=== PATIENT | female | born 1950 | race African-American/Black ===

== ENCOUNTER 2018-09-15 16:31 | Inpatient (IN) | payer MEDICARE, BC ==
[~2018-09-15] VITALS: Ht 165.1 cm; Wt 100.8 kg
[2018-09-15] VITALS (11 sets, daily range): BP systolic 77–150; BP diastolic 41–94
[2018-09-15] MEDS ORDERED: UNOBMED (17:26)
[2018-09-15] MEDS ORDERED: LORazepam Inj 2mg/ml 1ml IV ONE (17:45)
[2018-09-15 17:46] LABS: HEMATOCRIT 34.9 % (37.0-47.0); MEAN CORPUSCULAR VOLUME 92 FL (80-99); PLATELET COUNT 371 K/UL (150-450); RED BLOOD COUNT 3.79 M/UL (4.20-5.40); RED CELL DISTRIBUTION WIDTH 15.4 % (11.6-14.8); WHITE BLOOD COUNT 18.6 K/UL (4.8-10.8)
[2018-09-15] MEDS ORDERED: ACETAMINOPHEN500 M5 PO (17:47)
[2018-09-15] MEDS ORDERED: DOCUSATE SODIU100 MG ORAL (17:52)
[2018-09-15] MEDS ORDERED: ACETAMINOPHEN325 M1 ORAL (17:52)
[2018-09-15] MEDS ORDERED: MULTIVITAMINS1 EAC2 ORAL (17:52)
--- NOTE | 2018-09-15 17:55 | Diagnostic Imaging Report ---
ADDENDUM - Added by Meliza Roberts M.D. on 09/15/2018 5:53 PM (-07:00) Correction should read: QUERY right pigtail catheter/chest tube. EXAM: XR Chest, 1 View CLINICAL HISTORY: COUGH TECHNIQUE: Frontal view of the chest. COMPARISON: No relevant prior studies available. FINDINGS: Lungs: Patchy bilateral pulmonary opacities could be from edema or pneumonia. Retrocardiac atelectasis/consolidation. Pleural space: Bilateral pleural effusions. No pneumothorax. Heart: Large cardiac silhouette. Mediastinum: Unremarkable. Bones/joints: No acute fracture. Soft tissues: Surgical clips in the left axillary region. Tubes, lines and devices: The endotracheal tube is approximately 2 cm above the ferny. Limited assessment of the enteric tube. Coronary right pigtail catheter/chest tube. IMPRESSION: Patchy bilateral pulmonary opacities could be from edema or pneumonia. Retrocardiac atelectasis/consolidation.
[2018-09-15 17:58] LABS: ANION GAP 5 mmol/L (5-15); BLOOD UREA NITROGEN 16 mg/dL (7-18); CALCIUM 9.3 MG/DL (8.5-10.1); CARBON DIOXIDE 30 MMOL/L (21-32); CHLORIDE 104 MMOL/L (98-107); CREATININE 0.9 MG/DL (0.55-1.30); SODIUM 139 MMOL/L (136-145)
--- NOTE | 2018-09-15 18:08 | Emergency Room Report ---
History of Present Illness General Chief Complaint: Dyspnea/Respdistress Source: Medical Record Present Illness HPI Patient presents emergency department today with acute respiratory distress. History is limited as patient is from a care home and a poor historian. Patient apparently has a history of lymphedema on the left with evidence of pleural effusion in the lungs. Patient also might have had a history of breast cancer as there are evidence of surgical clips on chest x-ray on patient's left side anterior chest wall. Patient did present with shortness of breath that was acute or desaturation was approximately 80% on room air. No further history is available as patient appears to be laboring all her breathing. Symptoms are noted to be highly severe. Patient's primary care physician at the care home was Dr. Gomes. Symptoms noted to be severe to critical. No other modifying factors. No other associated signs and symptoms. No other complaints were noted. Allergies: Coded Allergies: No Known Allergies (Unverified , 09/15/18) Patient History Past Medical History: other - Lymphedema, pleural effusion Past Surgical History: other - Port-A-Cath right arm, prior surgery left chest Social History Narrative Patient is at a care home Now: No Reviewed Nursing Documentation: PMH: Agreed; PSxH: Agreed Nursing Documentation-PMH Hx Hypertension: Yes Hx Diabetes: Yes - DM type 2 Review of Systems All Other Systems: limited Physical Exam Vital Signs Date Time Temp Pulse Resp B/P (MAP) Pulse Ox O2 Delivery O2 Flow Rate FiO2 09/15/18 16:25 109 25 150/78 70 Room Air 09/15/18 16:35 98.6 09/15/18 17:05 100 Sp02 EP Interpretation: reviewed, abnormal, other - O2 sat noted to be low by me General Appearance: severe distress, lethargic, Chronically Ill Head: atraumatic Eyes: bilateral eye PERRL ENT: moist mucus membranes Neck: full range of motion, supple Respiratory: respiratory distress, decreased breath sounds, accessory muscle use, other - Decreased breath sounds on the left Cardiovascular #1: regular rate, rhythm, edema - Left upper extremity, bilateral lower extremity Gastrointestinal: normal inspection, soft, no hernia Genitourinary: deferred Musculoskeletal: swelling - Left upper extremity Neurologic: responsive, other - Lethargic but awake Psychiatric: anxious Skin: normal inspection Procedures Critical Care Time Critical Care Time Patient had a critical medical condition which untreated could potentially result in life or limb threatening injury. Total critical care time excluding procedures was approximately 45 minutes. Intubation Intubation : Consent: Emergent Intubation Method: orotracheal Tube Size (cm): 7.5 Medications: Etomidate, Rocuronium Breath Sounds after Intubation: right greater than left Intubation Complications: no complications Post Intubation Xray: Yes Progress/Xray Impression: Appropriate placement of ET tube. Attempts: One Patient Tolerated: Well Complications: None Medical Decision Making Diagnostic Impression: Primary Impression: Respiratory failure Additional Impressions: Pleural effusion Pulmonary edema ER Course Patient presents emergency department today with acute shortness of breath. Differential diagnosis include respiratory failure, pulmonary edema, pleural effusion, pneumonia just to name a few. Given the severity of the patient's presentation I felt this is a highly complex patient. This patient required extensive workup. Given patient's initial presentation patient required emergent intervention. Patient was intubated. Patient chest x-ray shows evidence of congestion versus infiltrate. Because of this patient was given antibiotics. Unfortunately we were unable to obtain blood because of patient's body habitus and because of the patient presentation. Even though blood culture was ordered we are unable to get blood initially. As a result to prevent further delay patient was given IV antibiotics. Because patient was starting to decompensate with lower blood pressures patient was given a fluid bolus. Patient blood pressure did improve. Patient will be admitted to the ICU for further treatment. Case was discussed with Dr. Ernesto Diaz. He will be accepting the patient in ICU. Labs Test 09/15/18 17:28 09/15/18 19:40 White Blood Count 18.6 K/UL (4.8-10.8) Red Blood Count 3.79 M/UL (4.20-5.40) Hemoglobin 11.0 G/DL (12.0-16.0) Hematocrit 34.9 % (37.0-47.0) Mean Corpuscular Volume 92 FL (80-99) Mean Corpuscular Hemoglobin 29.1 PG (27.0-31.0) Mean Corpuscular Hemoglobin Concent 31.5 G/DL (32.0-36.0) Red Cell Distribution Width 15.4 % (11.6-14.8) Platelet Count 371 K/UL (150-450) Mean Platelet Volume 5.0 FL (6.5-10.1) Neutrophils (%) (Auto) % (45.0-75.0) Lymphocytes (%) (Auto) % (20.0-45.0) Monocytes (%) (Auto) % (1.0-10.0) Eosinophils (%) (Auto) % (0.0-3.0) Basophils (%) (Auto) % (0.0-2.0) Differential Total Cells Counted 100 Neutrophils % (Manual) 91 % (45-75) Lymphocytes % (Manual) 3 % (20-45) Monocytes % (Manual) 0 % (1-10) Eosinophils % (Manual) 0 % (0-3) Basophils % (Manual) 0 % (0-2) Band Neutrophils 6 % (0-8) Platelet Estimate Adequate Platelet Morphology Normal Polychromasia 1+ Hypochromasia 1+ Anisocytosis 1+ Prothrombin Time 10.6 SEC (9.30-11.50) Prothromb Time International Ratio 1.0 (0.9-1.1) Activated Partial Thromboplast Time 25 SEC (23-33) Sodium Level 139 MMOL/L (136-145) Potassium Level 4.0 MMOL/L (3.5-5.1) Chloride Level 104 MMOL/L (98-107) Carbon Dioxide Level 30 MMOL/L (21-32) Anion Gap 5 mmol/L (5-15) Blood Urea Nitrogen 16 mg/dL (7-18) Creatinine 0.9 MG/DL (0.55-1.30) Estimat Glomerular Filtration Rate > 60 mL/min (>60) Glucose Level 208 MG/DL (74-106) Calcium Level 9.3 MG/DL (8.5-10.1) Total Bilirubin 0.3 MG/DL (0.2-1.0) Aspartate Amino Transf (AST/SGOT) 16 U/L (15-37) Alanine Aminotransferase (ALT/SGPT) 10 U/L (12-78) Alkaline Phosphatase 93 U/L (46-116) Total Creatine Kinase 18 U/L (26-308) Creatine Kinase MB 0.5 NG/ML (0.0-3.6) Creatine Kinase MB Relative Index 2.7 Troponin I 0.003 ng/mL (0.000-0.056) Pro-B-Type Natriuretic Peptide 1063 pg/mL (0-125) Total Protein 5.8 G/DL (6.4-8.2) Albumin 1.9 G/DL (3.4-5.0) Globulin 3.9 g/dL Albumin/Globulin Ratio 0.5 (1.0-2.7) Lipase 127 U/L (73-393) Arterial Blood pH 7.373 (7.350-7.450) Arterial Blood Partial Pressure CO2 47.3 mmHg (35.0-45.0) Arterial Blood Partial Pressure O2 355.4 mmHg (75.0-100.0) Arterial Blood HCO3 26.9 mmol/L (22.0-26.0) Arterial Blood Oxygen Saturation 99.3 % (95-100) Arterial Blood Base Excess 1.3 (-2-2) Chris Test Positive EKG Diagnostic Results Rate: tachycardiac Rhythm: NSR ST Segments: no acute changes Rhythm Strip Diag. Results EP Interpretation: yes Rate: 129 Rhythm: NSR, no PVC's, no ectopy Chest X-Ray Diagnostic Results Chest X-Ray Diagnostic Results : Chest X-Ray Ordered: Yes # of Views/Limited/Complete: 1 View Indication: Shortness of Breath EP Interpretation: No Impression: Other - Effusion, pulmonary congestion vs infiltrate Last Vital Signs Date Time Temp Pulse Resp B/P (MAP) Pulse Ox O2 Delivery O2 Flow Rate FiO2 09/15/18 17:35 98.6 126 22 110/72 99 Mechanical Ventilator 100 Status: improved Disposition: ADMITTED INPATIENT Condition: Critical Referrals: NELI GOMES (PCP) Maikel Samuel MD Sep 15, 2018 18:08
[2018-09-15] MEDS ORDERED: Vancomycin 1.5 GM in D5W 275 ML IVPB ONE (18:15)
[2018-09-15] MEDS ORDERED: Piperacillin/Tazobactam 3.375 GM in NS 110 ML IVPB ONE (18:15)
[2018-09-15] MEDS ORDERED: Vancomycin 1.5gm Premix 275 ML IVPB SCH (18:15)
[2018-09-15 18:33] LABS: ALANINE AMINOTRANSFERASE 10 U/L (12-78); ALBUMIN 1.9 G/DL (3.4-5.0); ALBUMIN/GLOBULIN RATIO 0.5 (1.0-2.7); ALKALINE PHOSPHATASE 93 U/L (46-116); ASPARTATE AMINO TRANSFERASE 16 U/L (15-37); BILIRUBIN,TOTAL 0.3 MG/DL (0.2-1.0); CKMB 0.5 NG/ML (0.0-3.6); CREATINE KINASE 18 U/L (26-308)
[2018-09-15] MEDS: LORazepam 20 MG in NS 90 ML IV ONE ×2 (18:34→18:38)
[2018-09-15] MEDS ORDERED: Etomidate 40mg/20ml Inj IV ONE (20:45)
[2018-09-15] MEDS ORDERED: Zemuron 50mg/5ml Inj IV ONE (20:45)
--- NOTE | 2018-09-15 21:52 | Diagnostic Imaging Report ---
EXAM: XR Abdomen, 1 View CLINICAL HISTORY: NGT TECHNIQUE: Frontal supine view of the abdomen/pelvis. COMPARISON: No relevant prior studies available. FINDINGS: Lower thorax: Left pleural effusion. Retrocardiac atelectasis/consolidation. Pulmonary opacities. Gastrointestinal tract: Unremarkable. Bones/joints: No acute fracture. Tubes, lines and devices: Enteric tube, side-port at the GE junction and tip in the very proximal stomach. Right chest tube IMPRESSION: Enteric tube, side-port at the GE junction and tip in the very proximal stomach.
[2018-09-15] MEDS: D5NS 1,000 ML IV SCH (23:22)
[2018-09-15] MEDS: LORazepam Inj 2mg/ml 1ml IV PRN (23:39)
[2018-09-16] VITALS (60 sets, daily range): BP systolic 81–156; BP diastolic 36–89
[2018-09-16] MEDS: Piperacillin/Tazobactam 3.375 GM in NS 110 ML IVPB SCH ×3 (02:00→17:57)
[2018-09-16] MEDS: LORazepam Inj 2mg/ml 1ml IV PRN (05:29)
[2018-09-16] MEDS: Vancomycin 750mg/D5W 275ml IVPB SCH ×4 (05:30→17:56)
[2018-09-16] MEDS ORDERED: CAPECITABINE500 MG PO ×2 (06:36→06:40)
[2018-09-16 06:57] LABS: ALANINE AMINOTRANSFERASE 9 U/L (12-78); ALBUMIN 1.5 G/DL (3.4-5.0); ALBUMIN/GLOBULIN RATIO 0.4 (1.0-2.7); ALKALINE PHOSPHATASE 87 U/L (46-116); ANION GAP 9 mmol/L (5-15); ASPARTATE AMINO TRANSFERASE 30 U/L (15-37); BILIRUBIN,TOTAL 0.6 MG/DL (0.2-1.0); BLOOD UREA NITROGEN 18 mg/dL (7-18); CALCIUM 8.3 MG/DL (8.5-10.1); CARBON DIOXIDE 24 MMOL/L (21-32); CHLORIDE 105 MMOL/L (98-107); POTASSIUM 5.1 MMOL/L (3.5-5.1); SODIUM 138 MMOL/L (136-145)
--- NOTE | 2018-09-16 07:09 | History & Physical ---
History and Physical History & Physicial #[id number] VDRF metatstaic breast ca maliginant effusion with bilateral plurx catheters, left not working per family DM HTN possible PNA sepsis ? aspriation Lorri Ron DO Sep 16, 2018 07:09
--- NOTE | 2018-09-16 08:00 | Consultation ---
DATE OF CONSULTATION: 09/15/2018 CARDIOLOGY CONSULTATION CONSULTING PHYSICIAN: Giovany Rocha M.D. REQUESTING PHYSICIAN: Ernesto Diaz M.D. REASON FOR CONSULTATION: Evaluation for congestive heart failure in the setting of respiratory failure. HISTORY OF PRESENT ILLNESS: This 68-year-old female, who resides at a halfway facility was transported to the emergency room with acute respiratory distress. The patient was unable to give any historical data and all the information is obtained from her medical record. The patient has a history of lymphedema, pleural effusions, and prior breast cancer apparently with surgical intervention. The patient became increasingly congested and hypoxic this morning and increasingly labored in her breathing upon arrival to the emergency room. She required intubation and mechanical ventilation initiation as a result. I have been asked to assist with cardiovascular care. PAST MEDICAL HISTORY: Hypertension, type 2 diabetes mellitus, history of congestive heart failure, lymphedema, pleural effusions, right arm Port-A-Cath, left breast cancer s/p mastectomy, s/p left pleuryx catheter with prior malfunction, s/p right pleurodesis and pleuryx catheter placement. ALLERGIES: None MEDICATIONS: Prior to admission, reviewed and reconciled. FAMILY HISTORY: No known. SOCIAL HISTORY: Not known. REVIEW OF SYSTEMS: Not obtainable. PHYSICAL EXAMINATION: VITAL SIGNS: Blood pressure 150/78, pulse 109, respiratory rate 25, and afebrile. GENERAL: Orally intubated, ill-appearing. LUNGS: Bilateral breath sounds, diminished at the left base. CARDIAC: Regular rhythm and rate. Normal S1 and S2. No murmur. ABDOMEN: Soft and nontender. EXTREMITIES: Left-sided edema. LABORATORY AND DIAGNOSTIC DATA: White count 18.6 and hemoglobin 11. Sodium 139, potassium 4, bicarbonate 30, BUN 16, and creatinine 0.9. ABG, 7.37, 47, and 350. Albumin 1.9. Troponin negative. Natriuretic peptide is 1063. EKG with sinus tachycardia and nonspecific ST change. Chest x-ray reveals right-sided pleural effusion and infiltrate versus edema. IMPRESSION: 1. Acute respiratory failure. 2. Acute on chronic diastolic congestive heart failure. 3. Pleural effusion. 4. Severe protein-calorie malnutrition. 5. Possible malignancy with residual disease. 6. Probable healthcare-acquired pneumonia. PLAN: 1. Ventilator support. 2. Antimicrobials. 3. Bronchodilators. 4. Sputum culture. 5. Echocardiogram. 6. Hold diuresis. 7. Protein supplements by feeding tube. 8. Further recommendations will follow once database is expanded. 9. Consideration for diagnostic and therapeutic thoracentesis will follow. Giovany Rocha M.D. DR: NIKOLAI JOB#: [id number] CC: ELMER
[2018-09-16] MEDS: D5NS 1,000 ML IV SCH ×2 (08:33→20:24)
[2018-09-16] MEDS: Heparin 5000 units/ml inj SUBQ SCH ×2 (08:34→21:47)
[2018-09-16] MEDS: Acetaminophen 500mg (ES) tab ORAL PRN (08:40)
--- NOTE | 2018-09-16 09:15 | History and Physical Report ---
DATE OF ADMISSION: 09/15/2018 PULMONARY CRITICAL CARE ADMISSION REASON FOR ADMISSION: Ventilator-dependent respiratory failure. HISTORY OF PRESENT ILLNESS: An elderly female with metastatic breast cancer, was admitted from her skilled nursing with acute respiratory distress. She was subsequently intubated in the emergency room. She has history of malignant effusions with bilateral PleurX catheters and per the family report, the left PleurX is not functioning properly. The right PleurX was drained prior to her being transferred to the facility. She is on oral chemotherapy for her breast cancer. She was desaturating while in the emergency room. No cough, fever, chills, nausea, or vomiting. No signs of aspiration were reported and was subsequently intubated and sedated, currently on the ventilator and has stabilized at this time. PAST MEDICAL HISTORY: Includes breast cancer on the left with malignant pleural effusion, diabetes, and hypertension. PAST SURGICAL HISTORY: Mastectomy, Port-A-Cath in the right arm, and bilateral PleurX catheters. SOCIAL HISTORY: Negative for tobacco or drugs. MEDICATIONS: Pre-hospital and current medications were reviewed and reconciled. FAMILY HISTORY: Unavailable. REVIEW OF SYSTEMS: Currently unavailable at this time. PHYSICAL EXAMINATION: GENERAL: She is sedated on the vent in no acute respiratory distress. VITAL SIGNS: Pulse is 104. She is currently afebrile. Blood pressure is 106/56, and respiratory rate is 16. HEENT: Her oropharynx is dry. Nasal mucosa is dry. NECK: Supple. No lymphadenopathy. LUNGS: Decreased breath sounds at bilateral bases. HEART: Tachy and regular with an audible murmur. ABDOMEN: Soft and distended with positive bowel sounds. EXTREMITIES: Upper and lower with positive edema. NEUROLOGIC: She does not follow commands due to sedation. LABORATORY AND IMAGING DATA: Her laboratory values have sodium of 138, potassium 5.1, chloride 105, bicarbonate 24, BUN 18, creatinine 1, and glucose of 208. Her first troponin is negative. Her albumin is reduced at 1.5. Her TSH is 2.0. Her CBC is 18.6, hemoglobin 11, and platelets are 371,000. Blood gas was 7.37, 43, and 355 upon intubation. Her INR is 1. Her chest x-ray had bilateral pleural effusions with possible edema versus infiltrate noted. Her KUB and her NG tube is noted in the proper location. ASSESSMENT AND PLAN: 1. Ventilator-dependent respiratory failure, possible pneumonia. 2. Metastatic breast cancer with malignant pleural effusions with bilateral PleurX catheters, possibly malfunctioning left PleurX noted. 3. Lymphedema. 4. Protein-caloric malnutrition. 5. Congestive heart failure. PLAN: She will remain intubated at this time and sedated. Her PleurX catheter was evaluated by Radiology. Lower extremity duplex is pending. We are unable at this point to give her oral chemotherapy that can be crushed and she is unable to take anything orally due to intubated. Glycemic control. Monitor her blood pressure. She is on IV fluids and we will start pressors if her mean arterial pressure is less than 65 mmHg. We will titrate her ventilator settings for optimal ventilatory function. Cardiology will see the patient at this time and will contact the patient's primary care physician in attempts to follow up with . Greater than 35 minutes of critical care time was spent with the patient, discussing with nursing staff, orders further the following day and the patient is critically ill in the intensive care unit. Lorri Ron D.O. DR: ZORAIDA JOB#: [id number] CC:
[2018-09-16] MEDS ORDERED: D5W 275ml ONE (09:45)
[2018-09-16] MEDS ORDERED: D5NS 1000ml IV ONE (09:45)
--- NOTE | 2018-09-16 09:58 | Diagnostic Imaging Report ---
EXAM: XR Chest, 1 View CLINICAL HISTORY: COUGH TECHNIQUE: Frontal view of the chest. COMPARISON: Chest x-rays dated 09/15/18 FINDINGS: Lungs: Persistent pulmonary vascular congestion versus pulmonary interstitial edema. Persistent left lung base/retrocardiac opacification suggesting atelectasis versus infiltrate. Pleural space: Persistent moderate left and mild right pleural effusions. Heart: Mild cardiomegaly, unchanged. Mediastinum: Unremarkable. Bones/joints: Unremarkable. Soft tissues: Radiodense clips overlie the left axilla. Tubes, lines and devices: Stable positioning of the endotracheal tube with the tip approximately 4.4 cm above the ferny. Stable positioning of a left chest tube. NG tube extends below the diaphragm and its tip is not seen. Telemetry leads overlie the thorax. IMPRESSION: No significant interval change.
[2018-09-16 12:33] LABS: HEMATOCRIT 33.1 % (37.0-47.0); HEMOGLOBIN 10.4 G/DL (12.0-16.0); MEAN CORPUSCULAR VOLUME 94 FL (80-99); PLATELET COUNT 334 K/UL (150-450); RED BLOOD COUNT 3.53 M/UL (4.20-5.40); RED CELL DISTRIBUTION WIDTH 15.6 % (11.6-14.8)
[2018-09-16 12:34] LABS: WHITE BLOOD COUNT 24.2 K/UL (4.8-10.8)
--- NOTE | 2018-09-16 12:49 | Infectious Diseases Prog Note ---
Assessment/Plan Assessment/Plan Full consult dictated: A) 1) sepsis, shock, leukocytosis, fevers, respiratory failure, vent, pna 2) hx breast ca, pmh noted 3) allergies - nkda P) 1) zosyn, vancomycin, amikacin 2) check cultures, labs and chest x-ray 3) icu care, vent, pressors 4) thank you Subjective Allergies: Coded Allergies: No Known Allergies (Unverified , 09/15/18) Objective Vital Signs Last 24 Hour Vital Signs Date Time Temp Pulse Resp B/P (MAP) Pulse Ox O2 Delivery O2 Flow Rate FiO2 09/16/18 12:30 99 18 98/60 (73) 100 09/16/18 12:00 Mechanical Ventilator 09/16/18 12:00 102 09/16/18 12:00 99.0 101 18 95/65 (75) 100 09/16/18 12:00 40 09/16/18 11:19 100 18 40 60 09/16/18 11:00 100 18 97/67 (77) 100 09/16/18 10:00 98 16 89/53 (65) 100 09/16/18 09:21 101 17 40 60 09/16/18 09:10 99.7 09/16/18 09:00 99 17 89/52 (64) 100 09/16/18 08:30 106 18 98/68 (78) 100 09/16/18 08:00 Mechanical Ventilator 09/16/18 08:00 100.0 103 17 94/54 (67) 100 09/16/18 08:00 40 09/16/18 08:00 103 09/16/18 07:02 105 18 40 60 09/16/18 07:01 104 16 Mechanical Ventilator 40 09/16/18 06:45 104 19 96/36 (56) 100 09/16/18 06:30 105 19 94/53 (67) 99 09/16/18 06:15 107 20 90/49 (63) 99 09/16/18 06:00 109 18 99/50 (66) 99 09/16/18 05:45 114 20 106/56 (73) 99 09/16/18 05:30 121 16 136/73 (94) 100 09/16/18 05:29 121 18 40 60 09/16/18 05:15 106 18 124/76 (92) 99 09/16/18 05:00 110 13 91/44 (60) 100 09/16/18 04:45 104 13 91/43 (59) 100 09/16/18 04:30 102 17 102/52 (69) 99 09/16/18 04:15 102 16 107/57 (74) 100 09/16/18 04:00 99 09/16/18 04:00 40 09/16/18 04:00 98.0 101 16 104/45 (64) 99 09/16/18 04:00 Mechanical Ventilator 09/16/18 03:45 101 16 94/54 (67) 99 09/16/18 03:30 96 16 95/48 (64) 100 09/16/18 03:29 100 16 40 60 09/16/18 03:15 101 16 98/58 (71) 99 09/16/18 03:00 101 16 95/54 (68) 100 09/16/18 03:00 95/54 09/16/18 02:45 100 16 90/51 (64) 100 09/16/18 02:30 101 16 88/46 (60) 100 09/16/18 02:15 103 16 93/53 (66) 100 09/16/18 02:00 94/53 09/16/18 02:00 101 16 94/53 (67) 100 09/16/18 01:45 106 18 92/64 (73) 99 09/16/18 01:30 107 18 95/42 (59) 99 09/16/18 01:15 107 17 93/38 (56) 98 09/16/18 01:08 110 21 40 60 09/16/18 01:00 108 17 84/39 (54) 98 09/16/18 00:45 110 18 104/78 (87) 97 09/16/18 00:30 116 17 104/48 (66) 98 09/16/18 00:15 132 18 145/67 (93) 95 09/16/18 00:00 105 09/16/18 00:00 Mechanical Ventilator 09/16/18 00:00 40 09/16/18 00:00 98.0 142 18 156/89 (111) 98 09/15/18 23:45 131 22 150/94 (112) 89 09/15/18 23:30 109 18 118/65 (82) 95 09/15/18 23:23 88/54 09/15/18 23:15 107 18 88/69 (75) 99 09/15/18 23:02 98 16 40 60 09/15/18 23:00 98 16 77/51 (60) 100 09/15/18 22:49 Mechanical Ventilator 09/15/18 22:30 97 17 79/59 (66) 100 09/15/18 22:00 99 16 84/43 (57) 100 09/15/18 20:54 103 17 50 60 09/15/18 20:51 60 09/15/18 20:49 104 09/15/18 20:46 98.0 104 22 112/79 (90) 100 09/15/18 20:25 98.0 93 15 103/71 100 Mechanical Ventilator 100 09/15/18 19:00 118 16 100 09/15/18 18:53 15 Mechanical Ventilator 100 09/15/18 18:50 98.0 116 16 79/41 100 Mechanical Ventilator 100 09/15/18 18:38 19 Mechanical Ventilator 100 09/15/18 18:30 120 18 115/81 100 Mechanical Ventilator 100 09/15/18 17:35 98.6 126 22 110/72 99 Mechanical Ventilator 100 09/15/18 17:16 126 16 100 09/15/18 17:05 100 09/15/18 16:35 98.6 125 25 106/87 70 Room Air 09/15/18 16:35 109 25 Room Air 09/15/18 16:25 109 25 150/78 70 Room Air Height (Feet): 5 Height (Inches): 5.00 Weight (Pounds): 202 Laboratory Tests Test 09/15/18 17:28 09/15/18 19:40 09/16/18 05:34 09/16/18 09:00 White Blood Count 18.6 K/UL (4.8-10.8) H Red Blood Count 3.79 M/UL (4.20-5.40) L Hemoglobin 11.0 G/DL (12.0-16.0) L Hematocrit 34.9 % (37.0-47.0) L Mean Corpuscular Volume 92 FL (80-99) Mean Corpuscular Hemoglobin 29.1 PG (27.0-31.0) Mean Corpuscular Hemoglobin Concent 31.5 G/DL (32.0-36.0) L Red Cell Distribution Width 15.4 % (11.6-14.8) H Platelet Count 371 K/UL (150-450) Mean Platelet Volume 5.0 FL (6.5-10.1) L Neutrophils (%) (Auto) % (45.0-75.0) Lymphocytes (%) (Auto) % (20.0-45.0) Monocytes (%) (Auto) % (1.0-10.0) Eosinophils (%) (Auto) % (0.0-3.0) Basophils (%) (Auto) % (0.0-2.0) Differential Total Cells Counted 100 Neutrophils % (Manual) 91 % (45-75) H Lymphocytes % (Manual) 3 % (20-45) L Monocytes % (Manual) 0 % (1-10) L Eosinophils % (Manual) 0 % (0-3) Basophils % (Manual) 0 % (0-2) Band Neutrophils 6 % (0-8) Platelet Estimate Adequate Platelet Morphology Normal Polychromasia 1+ Hypochromasia 1+ Anisocytosis 1+ Prothrombin Time 10.6 SEC (9.30-11.50) Prothromb Time International Ratio 1.0 (0.9-1.1) Activated Partial Thromboplast Time 25 SEC (23-33) Sodium Level 139 MMOL/L (136-145) 138 MMOL/L (136-145) Potassium Level 4.0 MMOL/L (3.5-5.1) 5.1 MMOL/L (3.5-5.1) Chloride Level 104 MMOL/L (98-107) 105 MMOL/L (98-107) Carbon Dioxide Level 30 MMOL/L (21-32) 24 MMOL/L (21-32) Anion Gap 5 mmol/L (5-15) 9 mmol/L (5-15) Blood Urea Nitrogen 16 mg/dL (7-18) 18 mg/dL (7-18) Creatinine 0.9 MG/DL (0.55-1.30) 1.0 MG/DL (0.55-1.30) Estimat Glomerular Filtration Rate > 60 mL/min (>60) > 60 mL/min (>60) Glucose Level 208 MG/DL (74-106) H 208 MG/DL (74-106) H Calcium Level 9.3 MG/DL (8.5-10.1) 8.3 MG/DL (8.5-10.1) L Total Bilirubin 0.3 MG/DL (0.2-1.0) 0.6 MG/DL (0.2-1.0) Aspartate Amino Transf (AST/SGOT) 16 U/L (15-37) 30 U/L (15-37) Alanine Aminotransferase (ALT/SGPT) 10 U/L (12-78) L 9 U/L (12-78) L Alkaline Phosphatase 93 U/L (46-116) 87 U/L (46-116) Total Creatine Kinase 18 U/L (26-308) L Creatine Kinase MB 0.5 NG/ML (0.0-3.6) Creatine Kinase MB Relative Index 2.7 Troponin I 0.003 ng/mL (0.000-0.056) 0.000 ng/mL (0.000-0.056) Pro-B-Type Natriuretic Peptide 1063 pg/mL (0-125) H 2604 pg/mL (0-125) H Total Protein 5.8 G/DL (6.4-8.2) L 5.2 G/DL (6.4-8.2) L Albumin 1.9 G/DL (3.4-5.0) L 1.5 G/DL (3.4-5.0) L Globulin 3.9 g/dL 3.7 g/dL Albumin/Globulin Ratio 0.5 (1.0-2.7) L 0.4 (1.0-2.7) L Lipase 127 U/L (73-393) Arterial Blood pH 7.373 (7.350-7.450) 7.444 (7.350-7.450) Arterial Blood Partial Pressure CO2 47.3 mmHg (35.0-45.0) H 40.2 mmHg (35.0-45.0) Arterial Blood Partial Pressure O2 355.4 mmHg (75.0-100.0) H 94.8 mmHg (75.0-100.0) Arterial Blood HCO3 26.9 mmol/L (22.0-26.0) H 26.9 mmol/L (22.0-26.0) H Arterial Blood Oxygen Saturation 99.3 % (95-100) 97.2 % (95-100) Arterial Blood Base Excess 1.3 (-2-2) 2.7 (-2-2) H Chris Test Positive Positive Magnesium Level 1.5 MG/DL (1.8-2.4) L Thyroid Stimulating Hormone (TSH) 2.095 uiU/mL (0.358-3.740) Test 09/16/18 11:45 White Blood Count 24.2 K/UL (4.8-10.8) *H Red Blood Count 3.53 M/UL (4.20-5.40) L Hemoglobin 10.4 G/DL (12.0-16.0) L Hematocrit 33.1 % (37.0-47.0) L Mean Corpuscular Volume 94 FL (80-99) Mean Corpuscular Hemoglobin 29.5 PG (27.0-31.0) Mean Corpuscular Hemoglobin Concent 31.4 G/DL (32.0-36.0) L Red Cell Distribution Width 15.6 % (11.6-14.8) H Platelet Count 334 K/UL (150-450) Mean Platelet Volume 5.8 FL (6.5-10.1) L Neutrophils (%) (Auto) % (45.0-75.0) Lymphocytes (%) (Auto) % (20.0-45.0) Monocytes (%) (Auto) % (1.0-10.0) Eosinophils (%) (Auto) % (0.0-3.0) Basophils (%) (Auto) % (0.0-2.0) Neutrophils % (Manual) Pending Lymphocytes % (Manual) Pending Platelet Estimate Pending Platelet Morphology Pending Current Medications Medications (Trade) Dose Ordered Sig/Ruddy Route PRN Reason Start Time Stop Time Status Last Admin Dose Admin Acetaminophen (Tylenol) 500 mg Q6H PRN ORAL Mild Pain/Temp > 100.5 09/15/18 23:15 10/15/18 23:14 09/16/18 08:40 Chlorhexidine Gluconate (Tawanna-Hex 2%) 1 applic DAILY@2000 TOPIC 09/16/18 20:00 10/16/18 19:59 Dextrose/Sodium Chloride 1,000 ml @ 100 mls/hr Q10H IV 09/15/18 23:15 10/15/18 23:14 09/16/18 08:33 Heparin Sodium (Porcine) (Heparin 5000 units/ml) 5,000 units EVERY 12 HOURS SUBQ 09/16/18 09:00 10/16/18 08:59 09/16/18 08:34 Lorazepam (Ativan 2mg/ml 1ml) 2 mg Q4H PRN IV For Anxiety 09/15/18 22:30 09/22/18 22:29 09/16/18 05:29 Magnesium Sulfate 100 ml @ 100 mls/hr Q1H IVPB 09/16/18 13:30 09/16/18 16:29 Non-Formulary Medication (Non-Formulary Med) 2 ea DAILY NG 09/15/18 22:15 10/15/18 22:14 UNV Non-Formulary Medication (Non-Formulary Med) 3 ea DAILY NG 09/16/18 09:00 10/16/18 08:59 UNV Norepinephrine Bitartrate 4 mg/ Dextrose 250 ml @ 0 mls/hr Q24H IV 09/15/18 23:15 10/15/18 23:14 09/15/18 23:23 Piperacillin Sod/ Tazobactam Sod 3.375 gm/Sodium Chloride 110 ml @ 27.5 mls/hr Q8H IVPB 09/16/18 02:00 09/23/18 01:59 09/16/18 10:21 Vancomycin HCl (Vanco rx to dose) 1 ea DAILY PRN MISC Per rx protocol 09/15/18 22:30 10/15/18 22:29 Vancomycin HCl 750 mg/Dextrose 275 ml @ 183.333 mls/hr Q12H IVPB 09/16/18 06:00 09/21/18 05:59 09/16/18 05:30 Yahaira Varner MD Sep 16, 2018 12:49
[2018-09-16] MEDS ORDERED: Amikacin Rx to dose MISC PRN (13:00)
[2018-09-16] MEDS: Amikacin 1,000 MG in D5W 110 ML IV SCH (16:27)
--- NOTE | 2018-09-16 17:46 | Diagnostic Imaging Report ---
EXAM: US Duplex Left Upper Extremity Veins CLINICAL HISTORY: DYSPHAGIA TECHNIQUE: Real-time duplex ultrasound scan of the left upper extremity veins integrating B-mode two-dimensional vascular structure, Doppler spectral analysis, color flow Doppler imaging and compression. COMPARISON: No relevant prior studies available. FINDINGS: Deep veins: Nonvisualized left brachial vein midportion and left cephalic vein due to arm swelling. This limits the examination. No DVT in the internal jugular, subclavian, axillary, or brachial veins. The veins demonstrate normal color flow, are normally compressible, with normal phasic flow and/or augmentation response. Superficial veins: See above. Soft tissues: No acute findings. IMPRESSION: 1. Nonvisualized left brachial vein midportion and left cephalic vein due to arm swelling. This limits the examination. 2. No left upper extremity DVT seen, although the entirety of the left upper extremity deep venous system was not visualized. <MYCVCSECTION> Critical Value Communications 09/16/18 18:27 Call Doctor Regarding Post-operative foreign body, called ROBER Ram on 09/16 18:29 (-07:00) 09/16/18 18:27 Call Doctor Regarding Other, called ROBER Ram on 09/16 18:29 (-07:00)
--- NOTE | 2018-09-16 18:16 | Diagnostic Imaging Report ---
EXAM: US Duplex Left Lower Extremity Veins CLINICAL HISTORY: DYSPHAGIA TECHNIQUE: Real-time duplex ultrasound scan of the left lower extremity veins integrating B-mode two-dimensional vascular structure, Doppler spectral analysis, color flow Doppler imaging and compression. COMPARISON: No relevant prior studies available. FINDINGS: Deep veins: Unremarkable. No DVT in the visualized common femoral, femoral, proximal deep femoral or popliteal veins. The veins demonstrate normal color flow, are normally compressible, with normal phasic flow and/or augmentation response. Superficial veins: Unremarkable. No thrombus in the visualized great saphenous vein. Soft tissues: No acute findings. No popliteal cyst. IMPRESSION: 1. Normal study. 2. No DVT. EXAM: US Duplex Right Lower Extremity Veins CLINICAL HISTORY: DYSPHAGIA TECHNIQUE: Real-time duplex ultrasound scan of the right lower extremity veins integrating B-mode two-dimensional vascular structure, Doppler spectral analysis, color flow Doppler imaging and compression. COMPARISON: No relevant prior studies available. FINDINGS: Deep veins: Unremarkable. No DVT in the visualized common femoral, femoral, proximal deep femoral or popliteal veins. The veins demonstrate normal color flow, are normally compressible, with normal phasic flow and/or augmentation response. Superficial veins: Unremarkable. No thrombus in the visualized great saphenous vein. Soft tissues: No acute findings. No popliteal cyst. IMPRESSION: 1. Normal study. 2. No DVT.
[2018-09-16] MEDS: Dyna-Hex 2% Top Sol 2oz TOPIC SCH (20:24)
[2018-09-17] VITALS (70 sets, daily range): BP systolic 84–161; BP diastolic 38–74
--- NOTE | 2018-09-17 00:45 | Progress Note ---
DATE: 09/16/2018 SUBJECTIVE: The patient's condition remains critical. Prognosis guarded. She remains in the intensive care unit. Orally intubated. Mechanically ventilated. Pressors have been required for adequate perfusion. PHYSICAL EXAMINATION: VITAL SIGNS: Blood pressure 87/51, pulse 99, respirations 22, the patient , T-max 99.2. LUNGS: Coarse breath sounds. Scattered rhonchi. HEART: Regular rhythm and rate. Normal S1 and S2. ABDOMEN: Soft. EXTREMITIES: Trace edema. LABORATORY DATA: Reveal sodium 138, potassium 5.1, bicarbonate 24, BUN 18, creatinine 1, magnesium 1.5. Troponin 0. Pro-natriuretic peptide 2600. Albumin 1.5. Venous duplex scan negative for DVT. Chest x-ray reveals persistent pulmonary venous congestion versus interstitial edema and left lung retrocardiac infiltrate. IMPRESSION: 1. Ventilator-dependent respiratory failure. 2. Healthcare-acquired pneumonia. 3. Malignant pleural effusions secondary to metastatic breast cancer. 4. Lymphedema. 5. Volume overload due to acute on chronic diastolic congestive heart failure. 6. Hypomagnesemia. 7. Severe protein-calorie malnutrition. 8. Sepsis with shock. PLAN: 1. Ventilator support. 2. Antimicrobials. 3. Drainage of PleurX catheter as able, may need to remove if it is clogged. 4. Taper pressors as able. 5. Volume support. No diuresis. 6. DVT and stress ulcer prophylaxis. 7. Protein supplement and nutrition by feeding tube. Giovany Rocha M.D. DR: JAMAAL JOB#: [id number] CC:
[2018-09-17] MEDS: Piperacillin/Tazobactam 3.375 GM in NS 110 ML IVPB SCH ×3 (01:30→18:11)
[2018-09-17 05:44] LABS: HEMATOCRIT 29.6 % (37.0-47.0); HEMOGLOBIN 9.3 G/DL (12.0-16.0); MEAN CORPUSCULAR VOLUME 94 FL (80-99); PLATELET COUNT 302 K/UL (150-450); RED BLOOD COUNT 3.15 M/UL (4.20-5.40); RED CELL DISTRIBUTION WIDTH 15.7 % (11.6-14.8); WHITE BLOOD COUNT 19.7 K/UL (4.8-10.8)
[2018-09-17] MEDS: D5NS 1,000 ML IV SCH (05:45)
[2018-09-17 06:24] LABS: ALANINE AMINOTRANSFERASE 14 U/L (12-78); ALBUMIN 1.5 G/DL (3.4-5.0); ALKALINE PHOSPHATASE 87 U/L (46-116); ANION GAP 5 mmol/L (5-15); ASPARTATE AMINO TRANSFERASE 17 U/L (15-37); BILIRUBIN,DIRECT < 0.1 MG/DL (0.0-0.3); BILIRUBIN,TOTAL 0.3 MG/DL (0.2-1.0); BLOOD UREA NITROGEN 19 mg/dL (7-18); CALCIUM 9.1 MG/DL (8.5-10.1); CARBON DIOXIDE 29 MMOL/L (21-32); CHLORIDE 104 MMOL/L (98-107); CREATININE 1.1 MG/DL (0.55-1.30); POTASSIUM 3.6 MMOL/L (3.5-5.1); SODIUM 138 MMOL/L (136-145)
[2018-09-17] MEDS: Vancomycin 750mg/D5W 275ml IVPB SCH ×4 (07:01→18:11)
[2018-09-17] MEDS: Heparin 5000 units/ml inj SUBQ SCH (08:42)
--- NOTE | 2018-09-17 08:59 | Pulmonolgy Critical Care Note ---
Critical Care - Asmt/Plan Assessment/Plan: 1. Ventilator-dependent respiratory failure, possible pneumonia. 2. Metastatic breast cancer with malignant pleural effusions with bilateral PleurX catheters, possibly malfunctioning left PleurX noted. 3. Lymphedema. 4. Protein-caloric malnutrition. 5. Congestive heart failure. 6. RUE DVT at her port, brachial vein 7. mild chf on CXR today 8. sepis with hypotension improved 9 EF 35-40% with moderate PAH on ECHO weaning protocol drain pleurx in am nebs sq heparin start TF wound care iv abx unable to give oral chemo agents via ogt ho to see pt glycemic control fu echo reports reduce IV to 75 cc hour placed call to transfer center at [facility] at family request. if unable to address drainage of pleurx will need to have her transferred. Respiratory: CXR, ABG, weaning trial Cardiac: continue to monitor HR/BP Renal: F/U I&O Infectious Disease: check cultures, continue antibiotics Endocrine: monitor blood sugar, check TSH Neurologic: PRN Ativan, PRN Morphine Prophylaxis: Protonix Disposition: keep in ICU Time Spent (Minutes): 50 Notes Reviewed: cardio Discussed with: nurses Critical Care - Objective Last 24 Hour Vital Signs Date Time Temp Pulse Resp B/P (MAP) Pulse Ox O2 Delivery O2 Flow Rate FiO2 09/17/18 06:46 90 20 40 60 09/17/18 06:30 89 21 84/43 (57) 100 09/17/18 06:15 90 21 104/48 (66) 100 09/17/18 06:00 89 21 102/56 (71) 100 09/17/18 05:45 93 20 122/60 (80) 100 09/17/18 05:30 96 22 118/59 (78) 100 09/17/18 05:15 94 18 124/54 (77) 100 09/17/18 05:13 94 21 40 60 09/17/18 05:00 93 21 115/56 (75) 100 09/17/18 04:45 101 18 105/62 (76) 100 09/17/18 04:30 102 18 126/60 (82) 99 09/17/18 04:15 94 26 107/62 (77) 100 09/17/18 04:00 40 09/17/18 04:00 107/62 09/17/18 04:00 Mechanical Ventilator 09/17/18 04:00 95 09/17/18 04:00 98.1 91 20 114/64 (81) 100 09/17/18 03:45 88 21 118/69 (85) 100 09/17/18 03:30 89 21 123/56 (78) 100 09/17/18 03:19 90 18 40 60 09/17/18 03:15 103 20 129/61 (83) 100 09/17/18 03:00 90 20 118/63 (81) 100 09/17/18 03:00 129/61 09/17/18 02:45 93 20 119/72 (88) 100 09/17/18 02:30 89 13 99/62 (74) 100 09/17/18 02:15 97 21 116/71 (86) 100 09/17/18 02:00 116/71 09/17/18 02:00 94 20 110/69 (83) 100 09/17/18 01:45 86 20 119/55 (76) 100 09/17/18 01:30 89 17 111/47 (68) 100 09/17/18 01:15 90 19 111/54 (73) 100 09/17/18 01:02 92 18 40 60 09/17/18 01:00 93 19 109/59 (76) 100 09/17/18 01:00 111/51 09/17/18 00:45 93 19 108/51 (70) 100 09/17/18 00:30 92 20 108/49 (68) 100 09/17/18 00:15 91 22 101/58 (72) 100 09/17/18 00:00 96 09/17/18 00:00 40 09/17/18 00:00 101/58 09/17/18 00:00 Mechanical Ventilator 09/17/18 00:00 97.8 90 20 106/47 (66) 100 09/16/18 23:45 90 20 110/36 (60) 100 09/16/18 23:30 96 19 105/63 (77) 100 09/16/18 23:15 96 22 110/58 (75) 100 09/16/18 23:02 100 21 40 60 09/16/18 23:00 99 24 109/55 (73) 100 09/16/18 23:00 110/58 09/16/18 22:45 100 24 95/63 (74) 100 09/16/18 22:30 98 23 96/70 (79) 100 09/16/18 22:15 97 24 105/49 (67) 100 09/16/18 22:00 105/49 09/16/18 22:00 99 21 116/57 (76) 100 09/16/18 21:45 90 23 122/57 (78) 100 09/16/18 21:30 84 25 114/58 (76) 99 09/16/18 21:15 90 19 88/55 (66) 100 09/16/18 21:12 88 19 40 60 09/16/18 21:00 88 17 97/52 (67) 100 09/16/18 21:00 97/52 09/16/18 20:45 92 21 90/55 (67) 100 09/16/18 20:30 93 19 87/52 (64) 100 09/16/18 20:15 92 20 89/56 (67) 100 09/16/18 20:00 100 09/16/18 20:00 Mechanical Ventilator 09/16/18 20:00 89/56 09/16/18 20:00 98.0 92 21 81/39 (53) 100 09/16/18 20:00 40 09/16/18 19:30 93 19 81/39 (53) 100 09/16/18 19:22 90 17 Mechanical Ventilator 40 09/16/18 19:22 94 22 40 60 09/16/18 19:00 89/56 09/16/18 19:00 98 19 81/39 (53) 100 09/16/18 18:30 98 20 89/42 (58) 100 09/16/18 18:13 87/51 09/16/18 18:00 99 22 87/51 (63) 100 09/16/18 17:23 100 22 40 60 09/16/18 17:00 101 20 104/64 (77) 100 09/16/18 16:00 97 09/16/18 16:00 40 09/16/18 16:00 Mechanical Ventilator 09/16/18 16:00 99.2 99 18 103/57 (72) 100 09/16/18 15:12 103 20 40 60 09/16/18 15:00 96 20 119/54 (75) 100 09/16/18 14:00 100 22 106/61 (76) 100 09/16/18 13:02 99 19 40 60 09/16/18 13:00 100 18 107/67 (80) 100 09/16/18 12:30 99 18 98/60 (73) 100 09/16/18 12:00 Mechanical Ventilator 09/16/18 12:00 102 09/16/18 12:00 99.0 101 18 95/65 (75) 100 09/16/18 12:00 40 09/16/18 11:19 100 18 40 60 09/16/18 11:00 100 18 97/67 (77) 100 09/16/18 10:00 98 16 89/53 (65) 100 09/16/18 09:21 101 17 40 60 09/16/18 09:10 99.7 09/16/18 09:00 99 17 89/52 (64) 100 Status: somnolent Condition: critical Lungs: rales Heart: HR/BP stable Abdomen: soft, non-tender Extremities: edema Micro: Microbiology Date/Time Source Procedure Growth Status 09/16/18 02:00 Sputum Induced Gram Stain - Final Resulted 09/16/18 02:00 Sputum Induced Sputum Culture Pending Resulted 09/15/18 17:40 Nasal Nares MRSA Culture - Final NO METHICILLIN RESISTANT STAPH AUREUS... Complete 09/16/18 12:49 Indwelling Cath Urine Culture - Preliminary NO GROWTH Resulted 09/15/18 17:40 Rectum VRE Culture - Final NO VANCOMYCIN RESISTANT ENTEROCOCCUS ... Complete 09/15/18 17:40 Rectum - Final NO CARBAPENEM-RESISTANT ENTEROBACTERI... Complete Critical Care - Subjective ROS Limited/Unobtainable: Yes Interval Events: le duplex negative DVT echo EF 35-40 with moderate PAH 55 mmhg UE positive clot at brachial at tip f catheter Condition: critical FI02: 40 Vent Support Breath Rate: 16 Vent Support Mode: AC Vent Tidal Volume: 400 Sputum Amount: Scant PEEP: 5.0 PIP: 32 I&O: Intake and Output 09/16/18 09/17/18 19:00 07:00 Intake Total 1295.0 ml 1180.0 ml Output Total 240 ml 260 ml Balance 1055.0 ml 920.0 ml IV Total 1295.0 ml 1180.0 ml Output Urine Total 240 ml 260 ml Subjective: sedated off pressors since 4 bp stable on the vent and comfortable sats 100% no bleeding positive uop no fever noted answeres some YN questions CXR pending CXR: mild chf ET-Tube: 7.5 ET Position: 24 Labs: Current Medications Medications (Trade) Dose Ordered Sig/Ruddy Route PRN Reason Start Time Stop Time Status Last Admin Dose Admin Acetaminophen (Tylenol) 500 mg Q6H PRN ORAL Mild Pain/Temp > 100.5 09/15/18 23:15 10/15/18 23:14 09/16/18 08:40 Amikacin Protocol (Amikacin pharmacy to dose) 1 ea DAILY PRN MISC Per rx protocol 09/16/18 13:00 10/16/18 12:59 Amikacin Sulfate 1000 mg/Dextrose 114 ml @ 114 mls/hr Q36H IV 09/16/18 16:00 09/23/18 15:59 09/16/18 16:27 Chlorhexidine Gluconate (Tawanna-Hex 2%) 1 applic DAILY@2000 TOPIC 09/16/18 20:00 10/16/18 19:59 09/16/18 20:24 Dextrose/Sodium Chloride 1,000 ml @ 100 mls/hr Q10H IV 09/15/18 23:15 10/15/18 23:14 09/17/18 05:45 Heparin Sodium (Porcine) (Heparin 5000 units/ml) 5,000 units EVERY 12 HOURS SUBQ 09/16/18 09:00 10/16/18 08:59 09/17/18 08:42 Lorazepam (Ativan 2mg/ml 1ml) 2 mg Q4H PRN IV For Anxiety 09/15/18 22:30 09/22/18 22:29 09/16/18 05:29 Norepinephrine Bitartrate 4 mg/ Dextrose 250 ml @ 0 mls/hr Q24H IV 09/15/18 23:15 10/15/18 23:14 09/16/18 18:13 Piperacillin Sod/ Tazobactam Sod 3.375 gm/Sodium Chloride 110 ml @ 27.5 mls/hr Q8H IVPB 09/16/18 02:00 09/23/18 01:59 09/17/18 01:30 Vancomycin HCl (Vanco rx to dose) 1 ea DAILY PRN MISC Per rx protocol 09/15/18 22:30 10/15/18 22:29 Vancomycin HCl 750 mg/Dextrose 275 ml @ 183.333 mls/hr Q12H IVPB 09/16/18 06:00 09/21/18 05:59 09/17/18 07:01 Laboratory Tests Test 09/16/18 09:00 09/16/18 11:45 09/16/18 18:28 09/17/18 05:00 Arterial Blood pH 7.444 (7.350-7.450) Arterial Blood Partial Pressure CO2 40.2 mmHg (35.0-45.0) Arterial Blood Partial Pressure O2 94.8 mmHg (75.0-100.0) Arterial Blood HCO3 26.9 mmol/L (22.0-26.0) H Arterial Blood Oxygen Saturation 97.2 % (95-100) Arterial Blood Base Excess 2.7 (-2-2) H Chris Test Positive White Blood Count 24.2 K/UL (4.8-10.8) *H 19.7 K/UL (4.8-10.8) H Red Blood Count 3.53 M/UL (4.20-5.40) L 3.15 M/UL (4.20-5.40) L Hemoglobin 10.4 G/DL (12.0-16.0) L 9.3 G/DL (12.0-16.0) L Hematocrit 33.1 % (37.0-47.0) L 29.6 % (37.0-47.0) L Mean Corpuscular Volume 94 FL (80-99) 94 FL (80-99) Mean Corpuscular Hemoglobin 29.5 PG (27.0-31.0) 29.4 PG (27.0-31.0) Mean Corpuscular Hemoglobin Concent 31.4 G/DL (32.0-36.0) L 31.3 G/DL (32.0-36.0) L Red Cell Distribution Width 15.6 % (11.6-14.8) H 15.7 % (11.6-14.8) H Platelet Count 334 K/UL (150-450) 302 K/UL (150-450) Mean Platelet Volume 5.8 FL (6.5-10.1) L 5.5 FL (6.5-10.1) L Neutrophils (%) (Auto) % (45.0-75.0) % (45.0-75.0) Lymphocytes (%) (Auto) % (20.0-45.0) % (20.0-45.0) Monocytes (%) (Auto) % (1.0-10.0) % (1.0-10.0) Eosinophils (%) (Auto) % (0.0-3.0) % (0.0-3.0) Basophils (%) (Auto) % (0.0-2.0) % (0.0-2.0) Differential Total Cells Counted 100 100 Neutrophils % (Manual) 93 % (45-75) H 91 % (45-75) H Lymphocytes % (Manual) 3 % (20-45) L 3 % (20-45) L Monocytes % (Manual) 2 % (1-10) 6 % (1-10) Eosinophils % (Manual) 0 % (0-3) 0 % (0-3) Basophils % (Manual) 0 % (0-2) 0 % (0-2) Band Neutrophils 2 % (0-8) 0 % (0-8) Platelet Estimate Adequate Adequate Platelet Morphology Normal Normal Hypochromasia 1+ 1+ Anisocytosis 1+ 1+ Lactic Acid Level 1.10 mmol/L (0.4-2.0) Sodium Level 138 MMOL/L (136-145) Potassium Level 3.6 MMOL/L (3.5-5.1) Chloride Level 104 MMOL/L (98-107) Carbon Dioxide Level 29 MMOL/L (21-32) Anion Gap 5 mmol/L (5-15) Blood Urea Nitrogen 19 mg/dL (7-18) H Creatinine 1.1 MG/DL (0.55-1.30) Estimat Glomerular Filtration Rate 59.8 mL/min (>60) Glucose Level 187 MG/DL (74-106) H Calcium Level 9.1 MG/DL (8.5-10.1) Magnesium Level 2.1 MG/DL (1.8-2.4) Total Bilirubin 0.3 MG/DL (0.2-1.0) Direct Bilirubin < 0.1 MG/DL (0.0-0.3) Aspartate Amino Transf (AST/SGOT) 17 U/L (15-37) Alanine Aminotransferase (ALT/SGPT) 14 U/L (12-78) Alkaline Phosphatase 87 U/L (46-116) Troponin I 0.000 ng/mL (0.000-0.056) Pro-B-Type Natriuretic Peptide 2193 pg/mL (0-125) H Total Protein 5.6 G/DL (6.4-8.2) L Albumin 1.5 G/DL (3.4-5.0) L Lipase 58 U/L (73-393) L Random Amikacin Level 13.3 ug/mL Vancomycin Level Trough 17.2 ug/mL (5.0-12.0) H Test 09/17/18 08:25 Arterial Blood pH 7.424 (7.350-7.450) Arterial Blood Partial Pressure CO2 41.5 mmHg (35.0-45.0) Arterial Blood Partial Pressure O2 81.8 mmHg (75.0-100.0) Arterial Blood HCO3 26.6 mmol/L (22.0-26.0) H Arterial Blood Oxygen Saturation 96.1 % (95-100) Arterial Blood Base Excess 2.0 (-2-2) Chris Test Positive Lorri Ron DO Sep 17, 2018 08:59
[2018-09-17] MEDS ORDERED: D5NS 1,000 ML IV SCH (10:00)
--- NOTE | 2018-09-17 10:06 | Diagnostic Imaging Report ---
EXAM: XR Chest, 1 View CLINICAL HISTORY: COPD TECHNIQUE: Frontal view of the chest. COMPARISON: Chest x-rays dated 09/16/18 FINDINGS: Lungs: No significant change in diffuse patchy interstitial and alveolar opacities in bilateral lungs. Pleural space: Persistent moderate left and mild right pleural effusions. Heart: Unchanged mild cardiomegaly. Mediastinum: Unremarkable. Bones/joints: Unremarkable. Tubes, lines and devices: Stable positioning of the endotracheal tube. NG tube extends below the diaphragm and its tip is not visualized. Telemetry leads overlie the thorax. IMPRESSION: No significant interval change from the prior chest x-ray.
[2018-09-17] MEDS ORDERED: Heparin 5000 units/ml inj IV SCH (10:30)
[2018-09-17] MEDS ORDERED: Heparin 25,000u/D5W 500ml 500 ML IV SCH ×3 (10:30→20:00)
[2018-09-17] MEDS ORDERED: NovoLOG Insulin Flexpen SUBQ SCH (11:30)
[2018-09-17 11:43] LABS: HEMATOCRIT 28.7 % (37.0-47.0); HEMOGLOBIN 9.1 G/DL (12.0-16.0); MEAN CORPUSCULAR VOLUME 93 FL (80-99); PLATELET COUNT 249 K/UL (150-450); RED BLOOD COUNT 3.09 M/UL (4.20-5.40); RED CELL DISTRIBUTION WIDTH 15.7 % (11.6-14.8)
[2018-09-17] MEDS: NovoLOG Insulin Flexpen SUBQ SCH ×3 (12:07→23:58)
--- NOTE | 2018-09-17 14:47 | Infectious Diseases Prog Note ---
Assessment/Plan Assessment/Plan Full consult dictated: A) 1) sepsis, shock, leukocytosis, fevers, respiratory failure, vent, pna 2) hx breast ca, pmh noted 3) allergies - nkda P) 1) zosyn, vancomycin, amikacin 2) check cultures, labs and chest x-ray 3) icu care, vent, bp support 4) off pressors today Subjective Constitutional: Reports: fatigue, other; Denies: fever HEENT: Reports: congestion Respiratory: Reports: shortness of breath Cardiovascular: Reports: other - off pressors Gastrointestinal/Abdominal: Denies: diarrhea Allergies: Coded Allergies: No Known Allergies (Unverified , 09/15/18) Objective Vital Signs Last 24 Hour Vital Signs Date Time Temp Pulse Resp B/P (MAP) Pulse Ox O2 Delivery O2 Flow Rate FiO2 09/17/18 13:30 116 19 118/58 (78) 100 09/17/18 13:12 117 21 40 09/17/18 13:00 101 20 117/57 (77) 100 09/17/18 12:30 98 20 117/59 (78) 100 09/17/18 12:03 99 09/17/18 12:00 98.4 100 21 116/59 (78) 100 09/17/18 12:00 Mechanical Ventilator 09/17/18 12:00 40 09/17/18 11:45 100 20 113/58 (76) 100 09/17/18 11:30 101 21 124/61 (82) 100 09/17/18 11:19 96 21 40 09/17/18 11:15 100 21 118/67 (84) 100 09/17/18 11:00 102 20 115/62 (79) 100 09/17/18 10:45 98 21 115/62 (79) 100 09/17/18 10:30 100 21 117/61 (79) 100 09/17/18 10:15 101 21 133/59 (83) 100 09/17/18 10:00 106 22 132/58 (82) 99 09/17/18 09:47 100 09/17/18 09:45 111 19 132/66 (88) 99 09/17/18 09:43 128 28 40 09/17/18 09:30 117 24 150/69 (96) 99 09/17/18 09:15 110 22 132/55 (80) 100 09/17/18 09:09 101 13 40 40 09/17/18 09:00 101 17 126/65 (85) 100 09/17/18 08:45 94 20 123/62 (82) 100 09/17/18 08:30 91 21 127/57 (80) 100 09/17/18 08:15 91 19 125/56 (79) 100 09/17/18 08:00 Mechanical Ventilator 09/17/18 08:00 40 09/17/18 08:00 98.0 85 21 115/56 (75) 100 09/17/18 07:53 90 09/17/18 07:45 90 19 117/53 (74) 100 09/17/18 07:30 87 17 93/52 (66) 100 09/17/18 07:15 86 20 100/53 (69) 100 09/17/18 07:00 86 19 91/44 (60) 100 09/17/18 06:46 90 20 40 60 09/17/18 06:30 89 21 84/43 (57) 100 09/17/18 06:15 90 21 104/48 (66) 100 09/17/18 06:00 89 21 102/56 (71) 100 09/17/18 05:45 93 20 122/60 (80) 100 09/17/18 05:30 96 22 118/59 (78) 100 09/17/18 05:15 94 18 124/54 (77) 100 09/17/18 05:13 94 21 40 60 09/17/18 05:00 93 21 115/56 (75) 100 09/17/18 04:45 101 18 105/62 (76) 100 09/17/18 04:30 102 18 126/60 (82) 99 09/17/18 04:15 94 26 107/62 (77) 100 09/17/18 04:00 40 09/17/18 04:00 107/62 09/17/18 04:00 Mechanical Ventilator 09/17/18 04:00 95 09/17/18 04:00 98.1 91 20 114/64 (81) 100 09/17/18 03:45 88 21 118/69 (85) 100 09/17/18 03:30 89 21 123/56 (78) 100 09/17/18 03:19 90 18 40 60 09/17/18 03:15 103 20 129/61 (83) 100 09/17/18 03:00 90 20 118/63 (81) 100 09/17/18 03:00 129/61 09/17/18 02:45 93 20 119/72 (88) 100 09/17/18 02:30 89 13 99/62 (74) 100 09/17/18 02:15 97 21 116/71 (86) 100 09/17/18 02:00 116/71 09/17/18 02:00 94 20 110/69 (83) 100 09/17/18 01:45 86 20 119/55 (76) 100 09/17/18 01:30 89 17 111/47 (68) 100 09/17/18 01:15 90 19 111/54 (73) 100 09/17/18 01:02 92 18 40 60 09/17/18 01:00 93 19 109/59 (76) 100 09/17/18 01:00 111/51 09/17/18 00:45 93 19 108/51 (70) 100 09/17/18 00:30 92 20 108/49 (68) 100 09/17/18 00:15 91 22 101/58 (72) 100 09/17/18 00:00 96 09/17/18 00:00 40 09/17/18 00:00 101/58 09/17/18 00:00 Mechanical Ventilator 09/17/18 00:00 97.8 90 20 106/47 (66) 100 09/16/18 23:45 90 20 110/36 (60) 100 09/16/18 23:30 96 19 105/63 (77) 100 09/16/18 23:15 96 22 110/58 (75) 100 09/16/18 23:02 100 21 40 60 09/16/18 23:00 99 24 109/55 (73) 100 09/16/18 23:00 110/58 09/16/18 22:45 100 24 95/63 (74) 100 09/16/18 22:30 98 23 96/70 (79) 100 09/16/18 22:15 97 24 105/49 (67) 100 09/16/18 22:00 105/49 09/16/18 22:00 99 21 116/57 (76) 100 09/16/18 21:45 90 23 122/57 (78) 100 09/16/18 21:30 84 25 114/58 (76) 99 09/16/18 21:15 90 19 88/55 (66) 100 09/16/18 21:12 88 19 40 60 09/16/18 21:00 88 17 97/52 (67) 100 09/16/18 21:00 97/52 09/16/18 20:45 92 21 90/55 (67) 100 09/16/18 20:30 93 19 87/52 (64) 100 09/16/18 20:15 92 20 89/56 (67) 100 09/16/18 20:00 100 09/16/18 20:00 Mechanical Ventilator 09/16/18 20:00 89/56 09/16/18 20:00 98.0 92 21 81/39 (53) 100 09/16/18 20:00 40 09/16/18 19:30 93 19 81/39 (53) 100 09/16/18 19:22 90 17 Mechanical Ventilator 40 09/16/18 19:22 94 22 40 60 09/16/18 19:00 89/56 09/16/18 19:00 98 19 81/39 (53) 100 09/16/18 18:30 98 20 89/42 (58) 100 09/16/18 18:13 87/51 09/16/18 18:00 99 22 87/51 (63) 100 09/16/18 17:23 100 22 40 60 09/16/18 17:00 101 20 104/64 (77) 100 09/16/18 16:00 97 09/16/18 16:00 40 09/16/18 16:00 Mechanical Ventilator 09/16/18 16:00 99.2 99 18 103/57 (72) 100 09/16/18 15:12 103 20 40 60 09/16/18 15:00 96 20 119/54 (75) 100 Height (Feet): 5 Height (Inches): 5.00 Weight (Pounds): 198 General Appearance: other - on vent HEENT: normocephalic, atraumatic, anicteric Respiratory/Chest: crackles/rales, rhonchi - bilaterally Cardiovascular: normal rate, regular rhythm, no gallop/murmur Abdomen: normal bowel sounds, soft, non tender, no organomegaly Microbiology Date/Time Source Procedure Growth Status 09/16/18 02:00 Sputum Induced Gram Stain - Final Resulted 09/16/18 02:00 Sputum Induced Sputum Culture Pending Resulted 09/15/18 17:40 Nasal Nares MRSA Culture - Final NO METHICILLIN RESISTANT STAPH AUREUS... Complete 09/16/18 12:49 Indwelling Cath Urine Culture - Preliminary NO GROWTH Resulted 09/15/18 17:40 Rectum VRE Culture - Final NO VANCOMYCIN RESISTANT ENTEROCOCCUS ... Complete 09/15/18 17:40 Rectum - Final NO CARBAPENEM-RESISTANT ENTEROBACTERI... Complete Laboratory Tests Test 09/16/18 18:28 09/17/18 05:00 09/17/18 08:25 09/17/18 11:10 Lactic Acid Level 1.10 mmol/L (0.4-2.0) White Blood Count 19.7 K/UL (4.8-10.8) H 18.0 K/UL (4.8-10.8) H Red Blood Count 3.15 M/UL (4.20-5.40) L 3.09 M/UL (4.20-5.40) L Hemoglobin 9.3 G/DL (12.0-16.0) L 9.1 G/DL (12.0-16.0) L Hematocrit 29.6 % (37.0-47.0) L 28.7 % (37.0-47.0) L Mean Corpuscular Volume 94 FL (80-99) 93 FL (80-99) Mean Corpuscular Hemoglobin 29.4 PG (27.0-31.0) 29.4 PG (27.0-31.0) Mean Corpuscular Hemoglobin Concent 31.3 G/DL (32.0-36.0) L 31.6 G/DL (32.0-36.0) L Red Cell Distribution Width 15.7 % (11.6-14.8) H 15.7 % (11.6-14.8) H Platelet Count 302 K/UL (150-450) 249 K/UL (150-450) Mean Platelet Volume 5.5 FL (6.5-10.1) L 5.8 FL (6.5-10.1) L Neutrophils (%) (Auto) % (45.0-75.0) % (45.0-75.0) Lymphocytes (%) (Auto) % (20.0-45.0) % (20.0-45.0) Monocytes (%) (Auto) % (1.0-10.0) % (1.0-10.0) Eosinophils (%) (Auto) % (0.0-3.0) % (0.0-3.0) Basophils (%) (Auto) % (0.0-2.0) % (0.0-2.0) Differential Total Cells Counted 100 100 Neutrophils % (Manual) 91 % (45-75) H 90 % (45-75) H Lymphocytes % (Manual) 3 % (20-45) L 3 % (20-45) L Monocytes % (Manual) 6 % (1-10) 7 % (1-10) Eosinophils % (Manual) 0 % (0-3) 0 % (0-3) Basophils % (Manual) 0 % (0-2) 0 % (0-2) Band Neutrophils 0 % (0-8) 0 % (0-8) Platelet Estimate Adequate Adequate Platelet Morphology Normal Normal Hypochromasia 1+ 1+ Anisocytosis 1+ 1+ Sodium Level 138 MMOL/L (136-145) Potassium Level 3.6 MMOL/L (3.5-5.1) Chloride Level 104 MMOL/L (98-107) Carbon Dioxide Level 29 MMOL/L (21-32) Anion Gap 5 mmol/L (5-15) Blood Urea Nitrogen 19 mg/dL (7-18) H Creatinine 1.1 MG/DL (0.55-1.30) Estimat Glomerular Filtration Rate 59.8 mL/min (>60) Glucose Level 187 MG/DL (74-106) H Calcium Level 9.1 MG/DL (8.5-10.1) Magnesium Level 2.1 MG/DL (1.8-2.4) Total Bilirubin 0.3 MG/DL (0.2-1.0) Direct Bilirubin < 0.1 MG/DL (0.0-0.3) Aspartate Amino Transf (AST/SGOT) 17 U/L (15-37) Alanine Aminotransferase (ALT/SGPT) 14 U/L (12-78) Alkaline Phosphatase 87 U/L (46-116) Troponin I 0.000 ng/mL (0.000-0.056) Pro-B-Type Natriuretic Peptide 2193 pg/mL (0-125) H Total Protein 5.6 G/DL (6.4-8.2) L Albumin 1.5 G/DL (3.4-5.0) L Lipase 58 U/L (73-393) L Random Amikacin Level 13.3 ug/mL Vancomycin Level Trough 17.2 ug/mL (5.0-12.0) H Arterial Blood pH 7.424 (7.350-7.450) Arterial Blood Partial Pressure CO2 41.5 mmHg (35.0-45.0) Arterial Blood Partial Pressure O2 81.8 mmHg (75.0-100.0) Arterial Blood HCO3 26.6 mmol/L (22.0-26.0) H Arterial Blood Oxygen Saturation 96.1 % (95-100) Arterial Blood Base Excess 2.0 (-2-2) Chris Test Positive Activated Partial Thromboplast Time 23 SEC (23-33) Current Medications Medications (Trade) Dose Ordered Sig/Ruddy Route PRN Reason Start Time Stop Time Status Last Admin Dose Admin Acetaminophen (Tylenol) 500 mg Q6H PRN ORAL Mild Pain/Temp > 100.5 09/15/18 23:15 10/15/18 23:14 09/16/18 08:40 Amikacin Protocol (Amikacin pharmacy to dose) 1 ea DAILY PRN MISC Per rx protocol 09/16/18 13:00 10/16/18 12:59 Amikacin Sulfate 1000 mg/Dextrose 114 ml @ 114 mls/hr Q36H IV 09/16/18 16:00 09/23/18 15:59 09/16/18 16:27 Chlorhexidine Gluconate (Tawanna-Hex 2%) 1 applic DAILY@2000 TOPIC 09/16/18 20:00 10/16/18 19:59 09/16/18 20:24 Dextrose (Dextrose 50%) 25 ml Q30M PRN IV Hypoglycemia 09/17/18 09:30 10/17/18 09:29 Dextrose (Dextrose 50%) 50 ml Q30M PRN IV Hypoglycemia 09/17/18 09:30 10/17/18 09:29 Dextrose/Sodium Chloride 1,000 ml @ 75 mls/hr [id number] IV 09/17/18 10:00 10/15/18 09:59 09/17/18 10:02 Heparin Sodium/ Dextrose 500 ml @ 32.332 mls/ hr ADJUST PER PROTOCOL IV 09/17/18 10:45 10/17/18 10:29 09/17/18 11:27 Insulin Aspart (NovoLOG) EVERY 6 HOURS SUBQ 09/17/18 12:00 10/17/18 11:29 09/17/18 12:07 Lorazepam (Ativan 2mg/ml 1ml) 2 mg Q4H PRN IV For Anxiety 09/15/18 22:30 09/22/18 22:29 09/16/18 05:29 Norepinephrine Bitartrate 4 mg/ Dextrose 250 ml @ 0 mls/hr Q24H IV 09/15/18 23:15 10/15/18 23:14 09/16/18 18:13 Piperacillin Sod/ Tazobactam Sod 3.375 gm/Sodium Chloride 110 ml @ 27.5 mls/hr Q8H IVPB 09/16/18 02:00 09/23/18 01:59 09/17/18 10:01 Vancomycin HCl (Vanco rx to dose) 1 ea DAILY PRN MISC Per rx protocol 09/15/18 22:30 10/15/18 22:29 Vancomycin HCl 750 mg/Dextrose 275 ml @ 183.333 mls/hr Q12H IVPB 09/16/18 06:00 09/21/18 05:59 09/17/18 07:01 Yahaira Varner MD Sep 17, 2018 14:47
[2018-09-17] MEDS: LORazepam Inj 2mg/ml 1ml IV PRN ×2 (16:17→19:55)
[2018-09-17] MEDS: Dyna-Hex 2% Top Sol 2oz TOPIC SCH (20:02)
[2018-09-17] MEDS: Metoprolol 25mg tab NG SCH (23:57)
[2018-09-17] MEDS: Acetaminophen 500mg (ES) tab ORAL PRN (23:59)
[2018-09-18] VITALS (35 sets, daily range): BP systolic 83–178; BP diastolic 48–100
--- NOTE | 2018-09-18 00:45 | Progress Note ---
DATE: 09/17/2018 CARDIOLOGY PROGRESS NOTE SUBJECTIVE: The patient remains in the intensive care unit. Her condition remains critical and prognosis guarded. Blood pressure parameters remained tenuous. She is being tapered off Levophed drip. She remains on ventilator support. Drainage of the PleurX catheter is planned. The patient had an echocardiogram revealing a reduced ejection fraction. I have yet to review it. OBJECTIVE: VITAL SIGNS: Blood pressure 84/43 to 122/60, heart rate 80 to 106, and respiratory rate 18 to 22. The patient remains afebrile. LUNGS: Diminished breath sounds. Scattered rhonchi, right greater than left. HEART: Regular rhythm and rate. Normal S1, S2 with no murmur appreciated due to obscured heart sounds from respiratory noise. ABDOMEN: Soft. EXTREMITIES: There is trace dependent edema. DIAGNOSTIC DATA: Venous duplex was negative for DVT in the lower extremities. However, there is a clot in the brachial vein at the tip of the catheter. LABORATORY DATA: White count 18 and hemoglobin 9. Sodium 138, potassium 3.6, BUN 19, creatinine 1.1, and glucose 187. Troponin negative. Pro-natriuretic peptide 2100. Albumin 1.5. IMPRESSION: 1. Sepsis with shock. 2. Acute on chronic systolic and diastolic congestive heart failure. 3. Severe protein-calorie malnutrition. 4. 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 5. History of right-sided pleurodesis. 6. Anemia. 7. Leukocytosis. PLAN: 1. Discontinue IV fluids. 2. Continue antimicrobials. 3. Ventilator support. 4. Pleural fluid drainage. 5. Restart beta-jeane. 6. Cautious diuresis. 7. Replace potassium as clinical parameters warrant. 8. No resumption of pressors unless refractory to fluid challenge. Giovany Rocha M.D. DR: NAVYA JOB#: [id number] CC:
--- NOTE | 2018-09-18 01:00 | Consultation ---
DATE OF CONSULTATION: 09/17/2018 INFECTIOUS DISEASE CONSULTATION: CONSULTING PHYSICIAN: Yahaira Varner M.D. ATTENDING PHYSICIAN: Ernesto Diaz M.D. REFERRING PHYSICIAN: Lorri Ron D.O. REASON FOR CONSULTATION: Sepsis shock, pneumonia, fevers, leukocytosis. CHIEF COMPLAINT: The patient's chief complaint coming to the hospital is respiratory failure. HISTORY OF PRESENT ILLNESS: This is a 68-year-old female who has history of metastatic breast cancer who comes in to [facility] with acute respiratory distress. The patient comes from an [facility]. The patient has malignant effusions and bilateral PleurX catheters. The patient has been on chemotherapy for her breast cancer. She was desaturating in the emergency room and required intubation when I saw her yesterday and today, is on a vent. She was on pressors, yesterday was in septic shock, and currently today she is not on pressors. Infectious Disease consultation is requested for antibiotic management. The patient was noted to have a white count of 24.2 and she also had fevers, respiratory failure, and tachycardia. The patient likely septic with SIRS criteria. The patient is on multiple antibiotics including Vanco, Zosyn, amikacin. Sputum culture at this time is pending. Urine culture is negative. I am not sure the blood cultures were done, still pending. The patient will be continued on Vanco, amikacin, and Zosyn for now for sepsis shock and pneumonia. The patient is more alert today, but still intubated. MAR is noted. Orders were noted. Notes and records were reviewed. REVIEW OF SYSTEMS: CONSTITUTIONAL: The patient is currently off pressors. She is afebrile. She had fevers yesterday. She is more alert. HEAD AND NECK: Orally intubated. CARDIAC: She is off pressors today. She was on pressors yesterday. GASTROINTESTINAL: No nausea, vomiting, diarrhea. GENITOURINARY: She has a Dailey. PULMONARY: On a vent. Some secretions. SKIN: No new rash. NEUROLOGIC: Seizures. She is more alert. Generalized fatigue and weakness. No seizure activity or rash. Review of systems is otherwise limited in this patient. PAST MEDICAL HISTORY: Includes the following. The patient has a past medical history of metastatic breast cancer with effusions and PleurX catheters bilaterally. She has history of protein-caloric malnutrition. She has history of lymphedema, CHF. She also has a history of diabetes and also history of hypertension. She also has a Port-A-Cath. ALLERGIES: No known drug allergies. No antibiotic allergies. SOCIAL HISTORY: Negative for smoking, alcohol, or drug abuse. FAMILY HISTORY: Noncontributory. Negative for exposure to tuberculosis or cancer. MEDICATIONS: Upon reviewing the MAR, she is on the following medications. Insulin, heparin, IV fluids. Antibiotics, amikacin, Zosyn, Vanco. She is on norepinephrine yesterday, but currently off. She is on acetaminophen and lorazepam. Outside medications noted and reconciliated. She is on acetaminophen. She was on other medications capecitabine. She is on docusate, multivitamins. PHYSICAL EXAMINATION: VITAL SIGNS: Temperature 98.4, pulse rate is 116, respiratory rate 19, blood pressure is 118/50, saturation 100%, FiO2 40%. Respiratory rate today has been as high as 21. When she first came in as high as 26. Looks like temperature was as high as 100.0 yesterday. GENERAL: More alert today. She opens her eyes and more responsive. HEAD AND NECK: Orally, she is intubated. Eye, no icterus. Normocephalic. No obvious JVD. HEART: Regular. No obvious gallop or murmur. No friction rub. Tachycardic. ABDOMEN: Soft. Positive bowel sounds. Nontender. LUNGS: Bilateral rhonchi, rales, and crackles. SKIN: No rash. MUSCULOSKELETAL: No effusions. Legs without cellulitis. PERIPHERAL VASCULAR: No cyanosis or gangrene. GENITOURINARY: She has a Dailey. Urine slightly cloudy. LINE SITES: Without phlebitis. NEUROLOGIC: Generalized weakness. More responsive today. LABORATORY DATA: Laboratory data as follows. White count 18.0, hemoglobin 9.1. Yesterday, white count 24.2 and creatinine is 1.1. Lactic acid level was 1.1. Cultures, sputum culture pending. Urine culture negative. Blood cultures pending. MRSA, VRE screens are negative. Chest x-ray shows no significant change in patchy infiltrates and alveolar opacities in the bilateral lungs. Sputum culture pending. Urine culture negative. Blood cultures pending. ASSESSMENT AND PLAN: 1. The patient has sepsis shock, elevated white count, fevers, SIRS criteria. The patient likely has pneumonia. She comes from [facility] and thus at high risk for pneumonia including aspiration, healthcare-acquired pneumonia, and also community-acquired pneumonia. She is at very high risk for anaerobic and also gram-negative pneumonia and also Staphylococcus aureus including MRSA pneumonia. She is immunocompromised with chemotherapy and bilateral metastatic breast cancer. At this time, we will continue Zosyn, amikacin, and Vanco for sepsis shock and pneumonia. We will check sputum culture, followup labs, and chest x-ray. Continue Zosyn, Vanco, amikacin for sepsis shock pending final workup. Urine culture is negative at this time. 2. The patient has metastatic breast cancer. The patient has been on chemotherapy. 3. Malignant effusions bilaterally with PleurX catheters. 4. Respiratory failure, currently on vent. Continue treatment per Pulmonary Medicine. 5. Diabetes mellitus. 6. Hypertension. 7. Blood sugar and blood pressure treatment for diabetes and hypertension per Primary. 8. Anemia. 9. Port-A-Cath. 10. Continue treatment per primary consultants. 11. No known drug allergies. 12. Social history negative. 13. Family history noncontributory. 14. MAR is noted. 15. Case discussed with RN. 16. ICU care. 17. Skin care protocol. 18. Notes and records were noted. Orders were entered. Yahaira Varner M.D. DR: NILS JOB#: [id number] CC:
[2018-09-18] MEDS: Piperacillin/Tazobactam 3.375 GM in NS 110 ML IVPB SCH ×3 (02:08→18:19)
[2018-09-18] MEDS: Heparin 25,000u/D5W 500ml 500 ML IV SCH ×2 (03:33→06:17)
[2018-09-18] MEDS: Amikacin 1,000 MG in D5W 110 ML IV SCH (04:14)
[2018-09-18] MEDS: LORazepam Inj 2mg/ml 1ml IV PRN ×3 (04:14→19:31)
[2018-09-18 05:48] LABS: ALANINE AMINOTRANSFERASE 16 U/L (12-78); ALBUMIN 1.4 G/DL (3.4-5.0); ALBUMIN/GLOBULIN RATIO 0.3 (1.0-2.7); ALKALINE PHOSPHATASE 92 U/L (46-116); ANION GAP 7 mmol/L (5-15); ASPARTATE AMINO TRANSFERASE 19 U/L (15-37); BILIRUBIN,TOTAL 0.2 MG/DL (0.2-1.0); BLOOD UREA NITROGEN 15 mg/dL (7-18); CALCIUM 8.7 MG/DL (8.5-10.1); CARBON DIOXIDE 28 MMOL/L (21-32); CHLORIDE 104 MMOL/L (98-107); POTASSIUM 3.5 MMOL/L (3.5-5.1); SODIUM 139 MMOL/L (136-145)
[2018-09-18] MEDS: Vancomycin 750mg/D5W 275ml IVPB SCH ×4 (05:55→21:30)
[2018-09-18] MEDS: NovoLOG Insulin Flexpen SUBQ SCH ×3 (05:56→18:00)
[2018-09-18] MEDS: Metoprolol 25mg tab NG SCH (09:19)
[2018-09-18] MEDS ORDERED: Heparin 25,000u/D5W 500ml 500 ML IV SCH ×2 (10:00→14:40)
[2018-09-18] MEDS ORDERED: NS 275ml ONE (10:38)
[2018-09-18] MEDS ORDERED: HydrALAZINE 10mg Tab NG PRN (12:15)
[2018-09-18] MEDS: Lisinopril 20mg tab NG SCH ×2 (12:47→18:00)
--- NOTE | 2018-09-18 15:24 | Diagnostic Imaging Report ---
Indication: Nonfunctioning chronic drainage catheter Technique: Grayscale images of the left chest Comparison: Reference made to chest radiograph 09/17/2018 Findings: A chronic tunneled drainage catheter is noted in the left chest. Only trace pleural fluid is demonstrated Impression: Only trace pleural fluid demonstrated. Absence of drainage could be due to lack of pleural fluid rather than catheter malfunction, although the latter certainly possible.
--- NOTE | 2018-09-18 17:18 | Pulmonology Progress Note ---
Assessment/Plan Assessment/Plan Acute respiratory failure Septic shock, tapering pressors Metastatic breast cancer Bilateral malignant pleural effusion Diabetes Anemia An ultrasound of the right chest showed no significant fluid The right pleural catheter may or may not be working properly but is not needed at this time The left pleural catheter is drained daily Antibiotics will be continued Multiple consultants notes were reviewed The case was discussed with the nurse and adoption social worker She does not currently require higher level of care Subjective ROS Limited/Unobtainable: Yes Allergies: Coded Allergies: No Known Allergies (Unverified , 09/15/18) Objective Last 24 Hour Vital Signs Date Time Temp Pulse Resp B/P (MAP) Pulse Ox O2 Delivery O2 Flow Rate FiO2 09/18/18 17:00 90 18 108/64 (79) 100 09/18/18 16:36 107 24 40 09/18/18 16:00 98.6 98 18 146/80 (102) 100 09/18/18 16:00 Mechanical Ventilator 09/18/18 16:00 40 09/18/18 16:00 106 09/18/18 15:00 90 18 144/72 (96) 100 09/18/18 14:31 106 21 40 09/18/18 14:00 94 18 148/75 (99) 100 09/18/18 13:00 101 18 144/72 (96) 100 09/18/18 12:47 168/77 09/18/18 12:45 114 28 40 09/18/18 12:00 98.8 98 18 150/75 (100) 100 09/18/18 12:00 Mechanical Ventilator 09/18/18 12:00 105 09/18/18 11:00 99 18 160/78 (105) 100 09/18/18 10:39 92 24 40 09/18/18 10:07 40 09/18/18 10:00 99 18 150/75 (100) 100 09/18/18 09:31 91 25 40 09/18/18 09:30 40 09/18/18 09:29 96 09/18/18 09:19 93 148/74 09/18/18 09:00 93 18 148/74 (98) 100 09/18/18 08:00 40 09/18/18 08:00 98.6 96 18 144/70 (94) 100 09/18/18 08:00 Mechanical Ventilator 09/18/18 08:00 96 09/18/18 07:15 77 18 40 09/18/18 07:00 71 18 83/48 (60) 100 09/18/18 06:00 82 18 90/51 (64) 100 09/18/18 05:30 94 24 147/73 (97) 98 09/18/18 05:05 98 22 40 09/18/18 05:00 98 22 144/100 (115) 98 09/18/18 04:30 110 24 133/69 (90) 94 09/18/18 04:00 98.5 108 23 163/98 (119) 83 09/18/18 04:00 102 09/18/18 04:00 40 09/18/18 04:00 Mechanical Ventilator 09/18/18 03:47 87 22 135/76 (95) 09/18/18 03:30 98 22 100/58 (72) 98 09/18/18 03:13 96 18 40 09/18/18 03:00 98 22 125/60 (81) 98 09/18/18 02:30 87 23 110/55 (73) 95 09/18/18 02:00 87 23 102/48 (66) 95 09/18/18 01:30 88 18 107/67 (80) 96 09/18/18 01:00 88 16 108/50 (69) 95 09/18/18 00:47 85 21 40 09/18/18 00:30 91 20 108/70 (83) 91 09/18/18 00:00 105 09/18/18 00:00 97.9 108 20 136/61 (86) 96 09/18/18 00:00 40 09/18/18 00:00 Mechanical Ventilator 09/17/18 23:57 105 124/73 09/17/18 23:30 105 12 124/73 (90) 97 09/17/18 23:05 107 22 40 09/17/18 23:00 104 23 125/66 (85) 99 09/17/18 22:30 109 18 130/67 (88) 100 09/17/18 22:00 116 14 132/74 (93) 89 09/17/18 21:30 119 20 121/73 (89) 99 09/17/18 21:00 121 22 131/74 (93) 99 09/17/18 21:00 121 26 40 09/17/18 20:30 113 22 125/64 (84) 99 09/17/18 20:00 98.9 127 24 111/48 (69) 99 09/17/18 20:00 107 09/17/18 20:00 Mechanical Ventilator 09/17/18 20:00 40 09/17/18 19:10 117 19 40 09/17/18 19:00 122 23 108/50 (69) 100 09/17/18 18:30 125 24 122/51 (74) 100 09/17/18 18:00 128 22 157/55 (89) 98 09/17/18 17:30 117 24 101/38 (59) 100 09/17/18 17:26 116 23 40 Intake and Output 09/17/18 09/18/18 19:00 07:00 Intake Total 1960.715 ml 1507.730 ml Output Total 1820 ml 1085 ml Balance 140.715 ml 422.730 ml Free Water 60 ml 30 ml IV Total 1675.715 ml 957.730 ml Tube Feeding 165 ml 520 ml Other 60 ml Output Urine Total 1645 ml 1085 ml Other 175 ml # Bowel Movements 2 Objective orally intubated on vent General Appearance: no acute distress, other - Poorly responsive HEENT: normocephalic Respiratory/Chest: decreased breath sounds, other - Bilateral pleural catheters Cardiovascular: normal rate Abdomen: soft, non tender, no organomegaly Extremities: other - 2+ edema Microbiology Date/Time Source Procedure Growth Status 09/16/18 18:28 Blood Blood Culture - Preliminary NO GROWTH AFTER 24 HOURS Resulted 09/16/18 18:28 Blood Blood Culture - Preliminary NO GROWTH AFTER 24 HOURS Resulted 09/16/18 02:00 Sputum Induced Gram Stain - Final Resulted 09/16/18 02:00 Sputum Induced Sputum Culture - Preliminary NORMAL UPPER RESPIRATORY SANDRA AT 24 ... Resulted 09/15/18 17:40 Nasal Nares MRSA Culture - Final NO METHICILLIN RESISTANT STAPH AUREUS... Complete 09/16/18 12:49 Indwelling Cath Urine Culture - Final NO GROWTH AFTER 48 HOURS Complete 09/15/18 17:40 Rectum VRE Culture - Final NO VANCOMYCIN RESISTANT ENTEROCOCCUS ... Complete 09/15/18 17:40 Rectum - Final NO CARBAPENEM-RESISTANT ENTEROBACTERI... Complete Laboratory Tests 09/17/18 18:00: Activated Partial Thromboplast Time > 150*H 09/18/18 01:55: Activated Partial Thromboplast Time > 150*H 09/18/18 04:00: Sodium Level 139, Potassium Level 3.5, Chloride Level 104, Carbon Dioxide Level 28, Anion Gap 7, Blood Urea Nitrogen 15, Creatinine 1.0, Estimat Glomerular Filtration Rate > 60, Glucose Level 125H, Calcium Level 8.7, Total Bilirubin 0.2 , Aspartate Amino Transf (AST/SGOT) 19, Alanine Aminotransferase (ALT/SGPT) 16, Alkaline Phosphatase 92, Total Protein 5.4L, Albumin 1.4L, Globulin 4.0, Albumin /Globulin Ratio 0.3L 09/18/18 09:25: Activated Partial Thromboplast Time 87H Current Medications Medications (Trade) Dose Ordered Sig/Ruddy Route PRN Reason Start Time Stop Time Status Last Admin Dose Admin Acetaminophen (Tylenol) 500 mg Q6H PRN ORAL Mild Pain/Temp > 100.5 09/15/18 23:15 10/15/18 23:14 09/17/18 23:59 Amikacin Protocol (Amikacin pharmacy to dose) 1 ea DAILY PRN MISC Per rx protocol 09/16/18 13:00 10/16/18 12:59 Amikacin Sulfate 1000 mg/Dextrose 114 ml @ 114 mls/hr Q36H IV 09/16/18 16:00 09/23/18 15:59 09/18/18 04:14 Chlorhexidine Gluconate (Tawanna-Hex 2%) 1 applic DAILY@2000 TOPIC 09/16/18 20:00 10/16/18 19:59 09/17/18 20:02 Dextrose (Dextrose 50%) 25 ml Q30M PRN IV Hypoglycemia 09/17/18 09:30 10/17/18 09:29 Dextrose (Dextrose 50%) 50 ml Q30M PRN IV Hypoglycemia 09/17/18 09:30 10/17/18 09:29 Heparin Sodium/ Dextrose 500 ml @ 17.962 mls/ hr ADJUST PER PROTOCOL IV 09/18/18 14:40 10/17/18 19:59 09/18/18 14:40 Hydralazine HCl (Apresoline) 10 mg Q6H PRN NG SBP above 160 09/18/18 12:15 10/18/18 12:14 Insulin Aspart (NovoLOG) EVERY 6 HOURS SUBQ 09/17/18 12:00 10/17/18 11:29 09/18/18 12:48 Lisinopril (Prinivil) 20 mg BID NG 09/18/18 12:15 10/18/18 12:14 09/18/18 12:47 Lorazepam (Ativan 2mg/ml 1ml) 2 mg Q4H PRN IV For Anxiety 09/15/18 22:30 09/22/18 22:29 09/18/18 15:20 Metoprolol Tartrate (Lopressor) 50 mg Q12HR NG 09/18/18 21:00 10/18/18 20:59 Piperacillin Sod/ Tazobactam Sod 3.375 gm/Sodium Chloride 110 ml @ 27.5 mls/hr Q8H IVPB 09/16/18 02:00 09/23/18 01:59 09/18/18 10:47 Vancomycin HCl (Vanco rx to dose) 1 ea DAILY PRN MISC Per rx protocol 09/15/18 22:30 10/15/18 22:29 Vancomycin HCl 750 mg/Dextrose 275 ml @ 183.333 mls/hr Q12H IVPB 09/16/18 06:00 09/21/18 05:59 09/18/18 05:55 Ernesto Diaz MD Sep 18, 2018 17:18
[2018-09-18 18:29] LABS: HEMATOCRIT 30.1 % (37.0-47.0); HEMOGLOBIN 9.7 G/DL (12.0-16.0); MEAN CORPUSCULAR VOLUME 91 FL (80-99); PLATELET COUNT 301 K/UL (150-450); RED BLOOD COUNT 3.32 M/UL (4.20-5.40); RED CELL DISTRIBUTION WIDTH 15.7 % (11.6-14.8); WHITE BLOOD COUNT 17.7 K/UL (4.8-10.8)
[2018-09-18 19:02] LABS: FERRITIN 247 NG/ML (8-388); LACTATE DEHYDROGENASE 206 U/L (81-234)
[2018-09-18] MEDS: Dyna-Hex 2% Top Sol 2oz TOPIC SCH (19:31)
[2018-09-18 19:43] LABS: % IRON SATURATION 15 % (15-50); IRON 20 ug/dL (50-175); TOTAL IRON BINDING CAPACITY 132 ug/dL (250-450)
[2018-09-18] MEDS: Metoprolol Tartrate 50mg tab NG SCH (21:29)
[2018-09-19] VITALS (28 sets, daily range): BP systolic 85–159; BP diastolic 34–94
[2018-09-19] MEDS: NovoLOG Insulin Flexpen SUBQ SCH ×4 (01:00→17:39)
[2018-09-19] MEDS: Piperacillin/Tazobactam 3.375 GM in NS 110 ML IVPB SCH ×3 (01:01→17:38)
--- NOTE | 2018-09-19 02:45 | Progress Note ---
DATE: 09/18/2018 CARDIOLOGY PROGRESS NOTE SUBJECTIVE: The patient has elevated blood pressure readings today. She remains on mechanical ventilation. The left PleurX catheter was drained. Again today, the right catheter is having difficulty with drainage. OBJECTIVE: VITAL SIGNS: Reviewed. LUNGS: Diminished breath sounds. HEART: Regular rhythm and rate. Normal S1, S2. ABDOMEN: Soft. EXTREMITIES: Trace edema. IMPRESSION: 1. Recovered shock due to sepsis. 2. Respiratory failure. 3. Bilateral pleural effusion. 4. Left breast cancer, status post surgery. 5. Acute on chronic systolic and diastolic congestive heart failure. 6. Severe protein-calorie malnutrition. 7. Third spacing. PLAN: 1. The patient is off IV fluids. 2. The patient will have continued up titration of antihypertensive and anti-failure regimen. 3. Periodic diuresis efforts will be considered in conjunction with close monitoring of clinical parameters. 4. She remains on antimicrobial therapy at this time. 5. Condition remains critical with guarded prognosis. Giovany Rocha M.D. DR: NAVYA JOB#: [id number] CC:
[2018-09-19 04:04] LABS: HEMATOCRIT 29.8 % (37.0-47.0); HEMOGLOBIN 9.5 G/DL (12.0-16.0); MEAN CORPUSCULAR VOLUME 92 FL (80-99); PLATELET COUNT 296 K/UL (150-450); RED BLOOD COUNT 3.23 M/UL (4.20-5.40); RED CELL DISTRIBUTION WIDTH 15.7 % (11.6-14.8)
[2018-09-19 04:20] LABS: ALANINE AMINOTRANSFERASE 12 U/L (12-78); ALBUMIN 1.3 G/DL (3.4-5.0); ALBUMIN/GLOBULIN RATIO 0.3 (1.0-2.7); ALKALINE PHOSPHATASE 102 U/L (46-116); ANION GAP 6 mmol/L (5-15); ASPARTATE AMINO TRANSFERASE 16 U/L (15-37); BILIRUBIN,TOTAL 0.2 MG/DL (0.2-1.0); BLOOD UREA NITROGEN 15 mg/dL (7-18); CALCIUM 8.4 MG/DL (8.5-10.1); CARBON DIOXIDE 30 MMOL/L (21-32); CHLORIDE 103 MMOL/L (98-107); POTASSIUM 3.3 MMOL/L (3.5-5.1); SODIUM 139 MMOL/L (136-145)
[2018-09-19] MEDS ORDERED: Heparin 5000 units/ml inj IV SCH (04:45)
[2018-09-19] MEDS ORDERED: Heparin 25,000u/D5W 500ml 500 ML IV SCH (04:45)
[2018-09-19] MEDS: Metoprolol Tartrate 50mg tab NG SCH ×2 (09:12→21:15)
[2018-09-19] MEDS: Lisinopril 20mg tab NG SCH ×2 (09:13→17:38)
[2018-09-19] MEDS: Vancomycin 750mg/D5W 275ml IVPB SCH ×4 (09:14→15:07)
--- NOTE | 2018-09-19 10:19 | Pulmonology Progress Note ---
Assessment/Plan Assessment/Plan Acute respiratory failure Septic shock, tapering pressors Metastatic breast cancer Bilateral malignant pleural effusion Diabetes Anemia The pleural catheters are drained daily Antibiotics will be continued wean as tolerated Subjective ROS Limited/Unobtainable: Yes Allergies: Coded Allergies: No Known Allergies (Unverified , 09/15/18) Objective Last 24 Hour Vital Signs Date Time Temp Pulse Resp B/P (MAP) Pulse Ox O2 Delivery O2 Flow Rate FiO2 09/19/18 09:13 109/68 09/19/18 09:12 91 109/68 09/19/18 09:00 92 26 40 09/19/18 08:00 Mechanical Ventilator 09/19/18 08:00 40 09/19/18 07:15 96 28 40 09/19/18 07:00 72 18 95/54 (68) 100 09/19/18 06:00 79 18 91/52 (65) 100 09/19/18 05:30 82 17 107/59 (75) 100 09/19/18 05:24 80 18 40 09/19/18 05:00 97 22 136/94 (108) 98 09/19/18 04:30 87 10 117/68 (84) 100 09/19/18 04:00 40 09/19/18 04:00 109 09/19/18 04:00 99.7 90 23 139/63 (88) 100 09/19/18 04:00 Mechanical Ventilator 09/19/18 03:30 101 28 140/69 (92) 98 09/19/18 03:14 86 17 40 09/19/18 03:00 82 21 85/34 (51) 100 09/19/18 02:00 94 17 136/63 (87) 99 09/19/18 01:20 96 20 40 09/19/18 01:00 93 17 145/75 (98) 100 09/19/18 00:30 93 23 147/69 (95) 100 09/19/18 00:00 40 09/19/18 00:00 Mechanical Ventilator 09/19/18 00:00 98.7 120 19 159/75 (103) 100 09/18/18 23:12 96 24 40 09/18/18 23:00 98 21 142/68 (92) 99 09/18/18 22:30 90 22 141/66 (91) 100 09/18/18 22:00 97 18 141/68 (92) 100 09/18/18 21:30 120 29 159/75 (103) 98 09/18/18 21:29 127 178/84 09/18/18 21:00 128 26 178/84 (115) 98 09/18/18 20:30 104 21 40 09/18/18 20:30 107 18 158/74 (102) 100 09/18/18 20:00 Mechanical Ventilator 09/18/18 20:00 40 09/18/18 20:00 99.2 98 16 122/65 (84) 100 09/18/18 20:00 112 09/18/18 19:30 103 17 150/74 (99) 100 09/18/18 19:20 100 20 40 09/18/18 19:00 107 16 166/86 (112) 100 09/18/18 18:00 102 18 110/67 (81) 100 09/18/18 17:00 90 18 108/64 (79) 100 09/18/18 16:36 107 24 40 09/18/18 16:00 98.6 98 18 146/80 (102) 100 09/18/18 16:00 Mechanical Ventilator 09/18/18 16:00 40 09/18/18 16:00 106 09/18/18 15:00 90 18 144/72 (96) 100 09/18/18 14:31 106 21 40 09/18/18 14:00 94 18 148/75 (99) 100 09/18/18 13:00 101 18 144/72 (96) 100 09/18/18 12:47 168/77 09/18/18 12:45 114 28 40 09/18/18 12:00 98.8 98 18 150/75 (100) 100 09/18/18 12:00 Mechanical Ventilator 09/18/18 12:00 105 09/18/18 11:00 99 18 160/78 (105) 100 09/18/18 10:39 92 24 40 Intake and Output 09/18/18 09/19/18 18:59 06:59 Intake Total 1080.924 ml 1453.843 ml Output Total 480 ml 505 ml Balance 600.924 ml 948.843 ml Free Water 75 ml IV Total 420.924 ml 663.843 ml Tube Feeding 660 ml 715 ml Output Urine Total 480 ml 505 ml Objective orally intubated on vent General Appearance: no acute distress Respiratory/Chest: lungs clear Cardiovascular: normal rate Extremities: other - ++ edema Microbiology Date/Time Source Procedure Growth Status 09/16/18 18:28 Blood Blood Culture - Preliminary NO GROWTH AFTER 24 HOURS Resulted 09/16/18 18:28 Blood Blood Culture - Preliminary NO GROWTH AFTER 24 HOURS Resulted 09/16/18 12:49 Indwelling Cath Urine Culture - Final NO GROWTH AFTER 48 HOURS Complete Laboratory Tests 09/18/18 18:00: White Blood Count 17.7H, Red Blood Count 3.32L, Hemoglobin 9.7L, Hematocrit 30.1L, Mean Corpuscular Volume 91, Mean Corpuscular Hemoglobin 29.2, Mean Corpuscular Hemoglobin Concent 32.1, Red Cell Distribution Width 15.7H, Platelet Count 301, Mean Platelet Volume 5.2L, Neutrophils (%) (Auto) , Lymphocytes (%) (Auto) , Monocytes (%) (Auto) , Eosinophils (%) (Auto) , Basophils (%) (Auto) , Differential Total Cells Counted 100, Neutrophils % ( Manual) 91H, Lymphocytes % (Manual) 5L, Monocytes % (Manual) 4, Eosinophils % ( Manual) 0, Basophils % (Manual) 0, Band Neutrophils 0, Platelet Estimate Adequate, Platelet Morphology Normal, Hypochromasia 1+, Anisocytosis 1+, Reticulocyte Count 0.9, Fibrinogen 821H, Iron Level 20L, Total Iron Binding Capacity 132L, Percent Iron Saturation 15, Unsaturated Iron Binding 112, Ferritin 247, Lactate Dehydrogenase 206, Carcinoembryonic Antigen [Pending], Vitamin B12 Level 494, Folate 3.0L, Thyroid Stimulating Hormone (TSH) 6.447H, Immunoglobulin G 749 09/19/18 04:00: White Blood Count 14.0H, Red Blood Count 3.23L, Hemoglobin 9.5L, Hematocrit 29.8L, Mean Corpuscular Volume 92, Mean Corpuscular Hemoglobin 29.3, Mean Corpuscular Hemoglobin Concent 31.8L, Red Cell Distribution Width 15.7H, Platelet Count 296, Mean Platelet Volume 6.2L, Neutrophils (%) (Auto) , Lymphocytes (%) (Auto) , Monocytes (%) (Auto) , Eosinophils (%) (Auto) , Basophils (%) (Auto) , Differential Total Cells Counted 100, Neutrophils % ( Manual) 87H, Lymphocytes % (Manual) 8L, Monocytes % (Manual) 5, Eosinophils % ( Manual) 0, Basophils % (Manual) 0, Band Neutrophils 0, Platelet Estimate Adequate, Platelet Morphology Normal, Hypochromasia 2+, Anisocytosis 1+, Activated Partial Thromboplast Time 45H, Sodium Level 139, Potassium Level 3.3L , Chloride Level 103, Carbon Dioxide Level 30, Anion Gap 6, Blood Urea Nitrogen 15, Creatinine 1.0, Estimat Glomerular Filtration Rate > 60, Glucose Level 133H , Calcium Level 8.4L, Total Bilirubin 0.2, Aspartate Amino Transf (AST/SGOT) 16 , Alanine Aminotransferase (ALT/SGPT) 12, Alkaline Phosphatase 102, Total Protein 5.2L, Albumin 1.3L, Globulin 3.9, Albumin/Globulin Ratio 0.3L 09/19/18 05:20: Stool Occult Blood [Pending] Current Medications Medications (Trade) Dose Ordered Sig/Ruddy Route PRN Reason Start Time Stop Time Status Last Admin Dose Admin Acetaminophen (Tylenol) 500 mg Q6H PRN ORAL Mild Pain/Temp > 100.5 09/15/18 23:15 10/15/18 23:14 09/17/18 23:59 Amikacin Protocol (Amikacin pharmacy to dose) 1 ea DAILY PRN MISC Per rx protocol 09/16/18 13:00 10/16/18 12:59 Amikacin Sulfate 1000 mg/Dextrose 114 ml @ 114 mls/hr Q36H IV 09/16/18 16:00 09/23/18 15:59 09/18/18 04:14 Chlorhexidine Gluconate (Tawanna-Hex 2%) 1 applic DAILY@2000 TOPIC 09/16/18 20:00 10/16/18 19:59 09/18/18 19:31 Dextrose (Dextrose 50%) 25 ml Q30M PRN IV Hypoglycemia 09/17/18 09:30 10/17/18 09:29 Dextrose (Dextrose 50%) 50 ml Q30M PRN IV Hypoglycemia 09/17/18 09:30 10/17/18 09:29 Heparin Sodium/ Dextrose 500 ml @ 25.147 mls/ hr ADJUST PER PROTOCOL IV 09/19/18 04:45 10/17/18 19:59 09/19/18 05:08 Hydralazine HCl (Apresoline) 10 mg Q6H PRN NG SBP above 160 09/18/18 12:15 10/18/18 12:14 Insulin Aspart (NovoLOG) EVERY 6 HOURS SUBQ 09/17/18 12:00 10/17/18 11:29 09/19/18 05:12 Lisinopril (Prinivil) 20 mg BID NG 09/18/18 12:15 10/18/18 12:14 09/19/18 09:13 Lorazepam (Ativan 2mg/ml 1ml) 2 mg Q4H PRN IV For Anxiety 09/15/18 22:30 09/22/18 22:29 09/18/18 19:31 Metoprolol Tartrate (Lopressor) 50 mg Q12HR NG 09/18/18 21:00 10/18/18 20:59 09/19/18 09:12 Piperacillin Sod/ Tazobactam Sod 3.375 gm/Sodium Chloride 110 ml @ 27.5 mls/hr Q8H IVPB 09/16/18 02:00 09/23/18 01:59 09/19/18 09:13 Potassium Chloride (K-Dur) 20 meq BID ORAL 09/19/18 18:00 10/19/18 17:59 Vancomycin HCl (Vanco rx to dose) 1 ea DAILY PRN MISC Per rx protocol 09/15/18 22:30 10/15/18 22:29 Vancomycin HCl 750 mg/Dextrose 275 ml @ 183.333 mls/hr Q12H IVPB 09/18/18 22:00 09/23/18 21:59 09/19/18 09:14 Ernesto Diaz MD Sep 19, 2018 10:19
--- NOTE | 2018-09-19 11:15 | Diagnostic Imaging Report ---
Indication: Dyspnea Comparison: 09/17/2018 A single view chest radiograph was obtained. Findings: Tubes and lines are stable and satisfactory. A moderate left pleural effusion and small right pleural effusion suspected. Interstitial edema and vascular prominence noted. IMPRESSION: Interstitial edema/CHF. Bilateral pleural effusions worse on the left. No change
--- NOTE | 2018-09-19 11:17 | Diagnostic Imaging Report ---
Indication: Abdominal pain Comparison: 09/15/2018 Single view of the abdomen obtained Findings: NG tube tip is projected over the stomach lumen. Dailey catheter noted. The study is limited without inclusion of much of the abdomen. IMPRESSION: NG tube satisfactory position
[2018-09-19] MEDS ORDERED: Enoxaparin 120 mg inj SUBQ SCH (14:45)
--- NOTE | 2018-09-19 15:25 | Infectious Diseases Prog Note ---
Assessment/Plan Assessment/Plan ASSESSMENT AND PLAN: 1. sepsis, shock, sirs, pna, chf, respiratory failure, leukocytosis, fevers - - zosyn and vancomycin - day # 3 abx - discontinue amikacin - monitor labs and chest x-ray - icu care, bp support, vent management - d/w RN 2. The patient has metastatic breast cancer. The patient has been on chemotherapy. 3. Malignant effusions bilaterally with PleurX catheters. 4. Respiratory failure, currently on vent. Continue treatment per Pulmonary Medicine. 5. Diabetes mellitus. 6. Hypertension. 7. Blood sugar and blood pressure treatment for diabetes and hypertension per Primary. 8. Anemia. 9. Port-A-Cath. 10. Continue treatment per primary consultants. 11. No known drug allergies. 12. Social history negative. 13. Family history noncontributory. 14. MAR is noted. 15. Case discussed with RN. 16. ICU care. 17. Skin care protocol. 18. Notes and records were noted. Orders were entered. Subjective Constitutional: Reports: fatigue; Denies: fever HEENT: Reports: congestion Respiratory: Reports: shortness of breath Cardiovascular: Reports: other - no pressors Gastrointestinal/Abdominal: Reports: other - no abdominal pain ; Denies: nausea , vomiting, diarrhea Genitourinary: Reports: other - + rebolledo - urine slt cloudy Psychiatric: Denies: depression Skin: Denies: rash Hematologic: Denies: bleeding Musculoskeletal: Reports: pain - controlled Allergies: Coded Allergies: No Known Allergies (Unverified , 09/15/18) Objective Vital Signs Last 24 Hour Vital Signs Date Time Temp Pulse Resp B/P (MAP) Pulse Ox O2 Delivery O2 Flow Rate FiO2 09/19/18 14:00 70 16 96/45 (62) 100 09/19/18 13:29 60 21 40 09/19/18 13:00 77 16 130/63 (85) 100 09/19/18 12:00 40 09/19/18 12:00 Mechanical Ventilator 09/19/18 12:00 80 09/19/18 12:00 98.8 80 18 117/67 (84) 100 09/19/18 11:15 40 09/19/18 11:00 77 16 125/75 (92) 100 09/19/18 10:00 93 17 130/67 (88) 100 09/19/18 09:13 109/68 09/19/18 09:12 91 109/68 09/19/18 09:00 92 26 40 09/19/18 09:00 114 17 109/68 (82) 100 09/19/18 08:00 132 09/19/18 08:00 Mechanical Ventilator 09/19/18 08:00 98.9 112 16 114/62 (79) 100 09/19/18 08:00 40 09/19/18 07:15 96 28 40 09/19/18 07:00 72 18 95/54 (68) 100 09/19/18 06:00 79 18 91/52 (65) 100 09/19/18 05:30 82 17 107/59 (75) 100 09/19/18 05:24 80 18 40 09/19/18 05:00 97 22 136/94 (108) 98 09/19/18 04:30 87 10 117/68 (84) 100 09/19/18 04:00 40 09/19/18 04:00 109 09/19/18 04:00 99.7 90 23 139/63 (88) 100 09/19/18 04:00 Mechanical Ventilator 09/19/18 03:30 101 28 140/69 (92) 98 09/19/18 03:14 86 17 40 09/19/18 03:00 82 21 85/34 (51) 100 09/19/18 02:00 94 17 136/63 (87) 99 09/19/18 01:20 96 20 40 09/19/18 01:00 93 17 145/75 (98) 100 09/19/18 00:30 93 23 147/69 (95) 100 09/19/18 00:00 40 09/19/18 00:00 Mechanical Ventilator 09/19/18 00:00 98.7 120 19 159/75 (103) 100 09/18/18 23:12 96 24 40 09/18/18 23:00 98 21 142/68 (92) 99 09/18/18 22:30 90 22 141/66 (91) 100 09/18/18 22:00 97 18 141/68 (92) 100 09/18/18 21:30 120 29 159/75 (103) 98 09/18/18 21:29 127 178/84 09/18/18 21:00 128 26 178/84 (115) 98 09/18/18 20:30 104 21 40 09/18/18 20:30 107 18 158/74 (102) 100 09/18/18 20:00 Mechanical Ventilator 09/18/18 20:00 40 09/18/18 20:00 99.2 98 16 122/65 (84) 100 09/18/18 20:00 112 09/18/18 19:30 103 17 150/74 (99) 100 09/18/18 19:20 100 20 40 09/18/18 19:00 107 16 166/86 (112) 100 09/18/18 18:00 102 18 110/67 (81) 100 09/18/18 17:00 90 18 108/64 (79) 100 09/18/18 16:36 107 24 40 09/18/18 16:00 98.6 98 18 146/80 (102) 100 09/18/18 16:00 Mechanical Ventilator 09/18/18 16:00 40 09/18/18 16:00 106 Height (Feet): 5 Height (Inches): 5.00 Weight (Pounds): 223 General Appearance: no acute distress - on vent, responsive HEENT: normocephalic, atraumatic, anicteric, no JVD, other - oral - intubated Respiratory/Chest: crackles/rales, rhonchi - bilaterally Cardiovascular: normal rate, regular rhythm, no gallop/murmur, no JVD Abdomen: normal bowel sounds, soft, non tender, no organomegaly Genitourinary: other - + rebolledo - urine clear Extremities: no cyanosis Skin: no rash 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 Pleural space: Persistent moderate left and mild right pleural effusions. Heart: Unchanged mild cardiomegaly. Mediastinum: Unremarkable. Bones/joints: Unremarkable. Tubes, lines and devices: Stable positioning of the endotracheal tube. NG tube extends below the diaphragm and its tip is not visualized. Telemetry leads overlie the thorax. IMPRESSION: No significant interval change from the prior chest x-ray. 09/19/18 - chest x-ray - A single view chest radiograph was obtained. Findings: Tubes and lines are stable and satisfactory. A moderate left pleural effusion and small right pleural effusion suspected. Interstitial edema and vascular prominence noted. IMPRESSION: Interstitial edema/CHF. Bilateral pleural effusions worse on the left. No change Microbiology Date/Time Source Procedure Growth Status 09/16/18 18:28 Blood Blood Culture - Preliminary NO GROWTH AFTER 24 HOURS Resulted 09/16/18 02:00 Sputum Induced Gram Stain - Final Complete 09/16/18 02:00 Sputum Induced Sputum Culture - Final NORMAL UPPER RESPIRATORY SANDRA PRESENT Complete 09/16/18 12:49 Indwelling Cath Urine Culture - Final NO GROWTH AFTER 48 HOURS Complete 09/15/18 17:40 Rectum VRE Culture - Final NO VANCOMYCIN RESISTANT ENTEROCOCCUS ... Complete 09/15/18 17:40 Rectum - Final NO CARBAPENEM-RESISTANT ENTEROBACTERI... Complete Microbiology Date/Time Source Procedure Growth Status 09/16/18 18:28 Blood Blood Culture - Preliminary NO GROWTH AFTER 24 HOURS Resulted 09/16/18 18:28 Blood Blood Culture - Preliminary NO GROWTH AFTER 24 HOURS Resulted Laboratory Tests Test 09/18/18 18:00 09/19/18 04:00 09/19/18 05:20 09/19/18 10:55 White Blood Count 17.7 K/UL (4.8-10.8) H 14.0 K/UL (4.8-10.8) H Red Blood Count 3.32 M/UL (4.20-5.40) L 3.23 M/UL (4.20-5.40) L Hemoglobin 9.7 G/DL (12.0-16.0) L 9.5 G/DL (12.0-16.0) L Hematocrit 30.1 % (37.0-47.0) L 29.8 % (37.0-47.0) L Mean Corpuscular Volume 91 FL (80-99) 92 FL (80-99) Mean Corpuscular Hemoglobin 29.2 PG (27.0-31.0) 29.3 PG (27.0-31.0) Mean Corpuscular Hemoglobin Concent 32.1 G/DL (32.0-36.0) 31.8 G/DL (32.0-36.0) L Red Cell Distribution Width 15.7 % (11.6-14.8) H 15.7 % (11.6-14.8) H Platelet Count 301 K/UL (150-450) 296 K/UL (150-450) Mean Platelet Volume 5.2 FL (6.5-10.1) L 6.2 FL (6.5-10.1) L Neutrophils (%) (Auto) % (45.0-75.0) % (45.0-75.0) Lymphocytes (%) (Auto) % (20.0-45.0) % (20.0-45.0) Monocytes (%) (Auto) % (1.0-10.0) % (1.0-10.0) Eosinophils (%) (Auto) % (0.0-3.0) % (0.0-3.0) Basophils (%) (Auto) % (0.0-2.0) % (0.0-2.0) Differential Total Cells Counted 100 100 Neutrophils % (Manual) 91 % (45-75) H 87 % (45-75) H Lymphocytes % (Manual) 5 % (20-45) L 8 % (20-45) L Monocytes % (Manual) 4 % (1-10) 5 % (1-10) Eosinophils % (Manual) 0 % (0-3) 0 % (0-3) Basophils % (Manual) 0 % (0-2) 0 % (0-2) Band Neutrophils 0 % (0-8) 0 % (0-8) Platelet Estimate Adequate Adequate Platelet Morphology Normal Normal Hypochromasia 1+ 2+ Anisocytosis 1+ 1+ Reticulocyte Count 0.9 % (0.0-2.0) Fibrinogen 821 mg/dL (200-400) H Iron Level 20 ug/dL (50-175) L Total Iron Binding Capacity 132 ug/dL (250-450) L Percent Iron Saturation 15 % (15-50) Unsaturated Iron Binding 112 ug/dL (112-346) Ferritin 247 NG/ML (8-388) Lactate Dehydrogenase 206 U/L (81-234) Carcinoembryonic Antigen 36.4 ng/mL (0.0-4.7) H Vitamin B12 Level 494 PG/ML (193-986) Folate 3.0 NG/ML (8.6-58.9) L Thyroid Stimulating Hormone (TSH) 6.447 uiU/mL (0.358-3.740) Immunoglobulin G 749 mg/dL (700-1600) Activated Partial Thromboplast Time 45 SEC (23-33) H 67 SEC (23-33) H Sodium Level 139 MMOL/L (136-145) Potassium Level 3.3 MMOL/L (3.5-5.1) L Chloride Level 103 MMOL/L (98-107) Carbon Dioxide Level 30 MMOL/L (21-32) Anion Gap 6 mmol/L (5-15) Blood Urea Nitrogen 15 mg/dL (7-18) Creatinine 1.0 MG/DL (0.55-1.30) Estimat Glomerular Filtration Rate > 60 mL/min (>60) Glucose Level 133 MG/DL (74-106) H Calcium Level 8.4 MG/DL (8.5-10.1) L Total Bilirubin 0.2 MG/DL (0.2-1.0) Aspartate Amino Transf (AST/SGOT) 16 U/L (15-37) Alanine Aminotransferase (ALT/SGPT) 12 U/L (12-78) Alkaline Phosphatase 102 U/L (46-116) Total Protein 5.2 G/DL (6.4-8.2) L Albumin 1.3 G/DL (3.4-5.0) L Globulin 3.9 g/dL Albumin/Globulin Ratio 0.3 (1.0-2.7) L Stool Occult Blood Positive (NEGATIVE) Current Medications Medications (Trade) Dose Ordered Sig/Ruddy Route PRN Reason Start Time Stop Time Status Last Admin Dose Admin Acetaminophen (Tylenol) 500 mg Q6H PRN ORAL Mild Pain/Temp > 100.5 09/15/18 23:15 10/15/18 23:14 09/17/18 23:59 Amikacin Protocol (Amikacin pharmacy to dose) 1 ea DAILY PRN MISC Per rx protocol 09/16/18 13:00 10/16/18 12:59 Amikacin Sulfate 1000 mg/Dextrose 114 ml @ 114 mls/hr Q36H IV 09/16/18 16:00 09/23/18 15:59 09/18/18 04:14 Chlorhexidine Gluconate (Tawanna-Hex 2%) 1 applic DAILY@1999 TOPIC 09/16/18 20:00 10/16/18 19:59 09/18/18 19:31 Dextrose (Dextrose 50%) 25 ml Q30M PRN IV Hypoglycemia 09/17/18 09:30 10/17/18 09:29 Dextrose (Dextrose 50%) 50 ml Q30M PRN IV Hypoglycemia 09/17/18 09:30 10/17/18 09:29 Enoxaparin Sodium (Lovenox) 150 mg Q24H SUBQ 09/19/18 14:45 10/19/18 14:44 UNV Hydralazine HCl (Apresoline) 10 mg Q6H PRN NG SBP above 160 09/18/18 12:15 10/18/18 12:14 Insulin Aspart (NovoLOG) EVERY 6 HOURS SUBQ 09/17/18 12:00 10/17/18 11:29 09/19/18 12:37 Lisinopril (Prinivil) 20 mg BID NG 09/18/18 12:15 10/18/18 12:14 09/19/18 09:13 Lorazepam (Ativan 2mg/ml 1ml) 2 mg Q4H PRN IV For Anxiety 09/15/18 22:30 09/22/18 22:29 09/18/18 19:31 Metoprolol Tartrate (Lopressor) 50 mg Q12HR NG 09/18/18 21:00 10/18/18 20:59 09/19/18 09:12 Piperacillin Sod/ Tazobactam Sod 3.375 gm/Sodium Chloride 110 ml @ 27.5 mls/hr Q8H IVPB 09/16/18 02:00 09/23/18 01:59 09/19/18 09:13 Potassium Chloride (K-Dur) 20 meq BID NG 09/19/18 18:00 10/19/18 17:59 Vancomycin HCl (Vanco rx to dose) 1 ea DAILY PRN MISC Per rx protocol 09/15/18 22:30 10/15/18 22:29 Vancomycin HCl 750 mg/Dextrose 275 ml @ 183.333 mls/hr Q12H IVPB 09/18/18 22:00 09/23/18 21:59 09/19/18 09:14 Yahaira Varner MD Sep 19, 2018 15:25
[2018-09-19] MEDS: Enoxaparin 30mg Inj SUBQ SCH (16:47)
[2018-09-19] MEDS: Enoxaparin 120 mg inj SUBQ SCH (16:47)
[2018-09-19] MEDS: Dyna-Hex 2% Top Sol 2oz TOPIC SCH (21:15)
--- NOTE | 2018-09-19 21:35 | Consultation ---
History of Present Illness General Chief Complaint: Dyspnea/Respdistress Present Illness Allergies: Coded Allergies: No Known Allergies (Unverified , 09/15/18) Medication History Scheduled Acetaminophen* (Acetaminophen 325MG Tablet*), 325 MG ORAL Q6H, (Reported) Capecitabine (Capecitabine), 500 MG PO DAILY at 0900H, (Reported) Capecitabine (Capecitabine), 500 MG PO DAILY at 1700H, (Reported) Docusate Sodium* (Docusate Sodium*), 100 MG ORAL TWICE A DAY, (Reported) Multivitamins* (Multivitamins*), 1 TAB ORAL DAILY, (Reported) Scheduled PRN Acetaminophen (Acetaminophen), 500 MG PO Q6HR PRN for For Pain, (Reported) Patient History Healthcare decision maker ivy chavez Resuscitation status Full Code Advanced Directive on File No Physical Exam Last 24 Hour Vital Signs Date Time Temp Pulse Resp B/P (MAP) Pulse Ox O2 Delivery O2 Flow Rate FiO2 09/19/18 20:51 83 19 60 09/19/18 19:28 77 19 60 09/19/18 19:00 81 22 128/62 (84) 99 09/19/18 18:00 88 20 146/66 (92) 99 09/19/18 17:38 105/51 09/19/18 17:15 72 20 40 09/19/18 17:00 74 19 105/51 (69) 100 09/19/18 16:00 98.8 74 17 118/64 (82) 97 09/19/18 16:00 Mechanical Ventilator 09/19/18 16:00 72 09/19/18 16:00 60 09/19/18 15:14 62 24 40 09/19/18 15:00 79 16 116/63 (80) 100 09/19/18 14:00 70 16 96/45 (62) 100 09/19/18 13:29 60 21 40 09/19/18 13:00 77 16 130/63 (85) 100 09/19/18 12:00 40 09/19/18 12:00 Mechanical Ventilator 09/19/18 12:00 80 09/19/18 12:00 98.8 80 18 117/67 (84) 100 09/19/18 11:15 40 09/19/18 11:00 77 16 125/75 (92) 100 09/19/18 10:00 93 17 130/67 (88) 100 09/19/18 09:13 109/68 09/19/18 09:12 91 109/68 09/19/18 09:00 92 26 40 09/19/18 09:00 114 17 109/68 (82) 100 09/19/18 08:00 132 09/19/18 08:00 Mechanical Ventilator 09/19/18 08:00 98.9 112 16 114/62 (79) 100 09/19/18 08:00 40 09/19/18 07:15 96 28 40 09/19/18 07:00 72 18 95/54 (68) 100 09/19/18 06:00 79 18 91/52 (65) 100 09/19/18 05:30 82 17 107/59 (75) 100 09/19/18 05:24 80 18 40 09/19/18 05:00 97 22 136/94 (108) 98 09/19/18 04:30 87 10 117/68 (84) 100 09/19/18 04:00 40 09/19/18 04:00 109 09/19/18 04:00 99.7 90 23 139/63 (88) 100 09/19/18 04:00 Mechanical Ventilator 09/19/18 03:30 101 28 140/69 (92) 98 09/19/18 03:14 86 17 40 09/19/18 03:00 82 21 85/34 (51) 100 09/19/18 02:00 94 17 136/63 (87) 99 09/19/18 01:20 96 20 40 09/19/18 01:00 93 17 145/75 (98) 100 09/19/18 00:30 93 23 147/69 (95) 100 09/19/18 00:00 40 09/19/18 00:00 Mechanical Ventilator 09/19/18 00:00 98.7 120 19 159/75 (103) 100 09/18/18 23:12 96 24 40 09/18/18 23:00 98 21 142/68 (92) 99 09/18/18 22:30 90 22 141/66 (91) 100 09/18/18 22:00 97 18 141/68 (92) 100 09/18/18 21:30 120 29 159/75 (103) 98 09/18/18 21:29 127 178/84 Intake and Output 09/18/18 09/19/18 19:00 07:00 Intake Total 805.924 ml 1461.028 ml Output Total 480 ml 495 ml Balance 325.924 ml 966.028 ml Free Water 75 ml IV Total 145.924 ml 671.028 ml Tube Feeding 660 ml 715 ml Output Urine Total 480 ml 495 ml Laboratory Tests Test 09/19/18 04:00 09/19/18 05:20 09/19/18 10:55 White Blood Count 14.0 K/UL (4.8-10.8) H Red Blood Count 3.23 M/UL (4.20-5.40) L Hemoglobin 9.5 G/DL (12.0-16.0) L Hematocrit 29.8 % (37.0-47.0) L Mean Corpuscular Volume 92 FL (80-99) Mean Corpuscular Hemoglobin 29.3 PG (27.0-31.0) Mean Corpuscular Hemoglobin Concent 31.8 G/DL (32.0-36.0) L Red Cell Distribution Width 15.7 % (11.6-14.8) H Platelet Count 296 K/UL (150-450) Mean Platelet Volume 6.2 FL (6.5-10.1) L Neutrophils (%) (Auto) % (45.0-75.0) Lymphocytes (%) (Auto) % (20.0-45.0) Monocytes (%) (Auto) % (1.0-10.0) Eosinophils (%) (Auto) % (0.0-3.0) Basophils (%) (Auto) % (0.0-2.0) Differential Total Cells Counted 100 Neutrophils % (Manual) 87 % (45-75) H Lymphocytes % (Manual) 8 % (20-45) L Monocytes % (Manual) 5 % (1-10) Eosinophils % (Manual) 0 % (0-3) Basophils % (Manual) 0 % (0-2) Band Neutrophils 0 % (0-8) Platelet Estimate Adequate Platelet Morphology Normal Hypochromasia 2+ Anisocytosis 1+ Activated Partial Thromboplast Time 45 SEC (23-33) H 67 SEC (23-33) H Sodium Level 139 MMOL/L (136-145) Potassium Level 3.3 MMOL/L (3.5-5.1) L Chloride Level 103 MMOL/L (98-107) Carbon Dioxide Level 30 MMOL/L (21-32) Anion Gap 6 mmol/L (5-15) Blood Urea Nitrogen 15 mg/dL (7-18) Creatinine 1.0 MG/DL (0.55-1.30) Estimat Glomerular Filtration Rate > 60 mL/min (>60) Glucose Level 133 MG/DL (74-106) H Calcium Level 8.4 MG/DL (8.5-10.1) L Total Bilirubin 0.2 MG/DL (0.2-1.0) Aspartate Amino Transf (AST/SGOT) 16 U/L (15-37) Alanine Aminotransferase (ALT/SGPT) 12 U/L (12-78) Alkaline Phosphatase 102 U/L (46-116) Total Protein 5.2 G/DL (6.4-8.2) L Albumin 1.3 G/DL (3.4-5.0) L Globulin 3.9 g/dL Albumin/Globulin Ratio 0.3 (1.0-2.7) L Stool Occult Blood Positive (NEGATIVE) Height (Feet): 5 Height (Inches): 5.00 Weight (Pounds): 223 Medications Current Medications Medications (Trade) Dose Ordered Sig/Ruddy Route PRN Reason Start Time Stop Time Status Last Admin Dose Admin Acetaminophen (Tylenol) 500 mg Q6H PRN ORAL Mild Pain/Temp > 100.5 09/15/18 23:15 10/15/18 23:14 09/17/18 23:59 Chlorhexidine Gluconate (Tawanna-Hex 2%) 1 applic DAILY@1999 TOPIC 09/16/18 20:00 10/16/18 19:59 09/18/18 19:31 Dextrose (Dextrose 50%) 25 ml Q30M PRN IV Hypoglycemia 09/17/18 09:30 10/17/18 09:29 Dextrose (Dextrose 50%) 50 ml Q30M PRN IV Hypoglycemia 09/17/18 09:30 10/17/18 09:29 Enoxaparin Sodium (Lovenox) 30 mg Q24H SUBQ 09/19/18 16:00 10/19/18 15:59 09/19/18 16:47 Enoxaparin Sodium (Lovenox) 120 mg Q24H SUBQ 09/19/18 16:00 10/19/18 15:59 09/19/18 16:47 Hydralazine HCl (Apresoline) 10 mg Q6H PRN NG SBP above 160 09/18/18 12:15 10/18/18 12:14 Insulin Aspart (NovoLOG) EVERY 6 HOURS SUBQ 09/17/18 12:00 10/17/18 11:29 09/19/18 17:39 Lisinopril (Prinivil) 20 mg BID NG 09/18/18 12:15 10/18/18 12:14 09/19/18 17:38 Lorazepam (Ativan 2mg/ml 1ml) 2 mg Q4H PRN IV For Anxiety 09/15/18 22:30 09/22/18 22:29 09/18/18 19:31 Metoprolol Tartrate (Lopressor) 50 mg Q12HR NG 09/18/18 21:00 10/18/18 20:59 09/19/18 09:12 Piperacillin Sod/ Tazobactam Sod 3.375 gm/Sodium Chloride 110 ml @ 27.5 mls/hr Q8H IVPB 09/16/18 02:00 09/23/18 01:59 09/19/18 17:38 Potassium Chloride (K-Dur) 20 meq BID NG 09/19/18 18:00 10/19/18 17:59 09/19/18 17:38 Vancomycin HCl (Vanco rx to dose) 1 ea DAILY PRN MISC Per rx protocol 09/15/18 22:30 10/15/18 22:29 Vancomycin HCl 750 mg/Dextrose 275 ml @ 183.333 mls/hr Q12H IVPB 09/19/18 16:00 09/24/18 15:59 09/19/18 15:07 Assessment/Plan Assessment/Plan: Hematology Consultation REJelani MD: Moriah Chief Complaint: Dyspnea/Respdistress DOS: 09/19/18 RFC: Metastatic breast cancer and left brachial dvt HPI 68y old female patient presents emergency department 09/15 with acute respiratory distress. History is limited as [facility] and a poor historian. Patient apparently has a history of lymphedema on the left with evidence of pleural effusion in the lungs. Patient also might have had a history of breast cancer as there are evidence of surgical clips on chest x-ray on patient's left side anterior chest wall. Patient did present with shortness of breath that was acute or desaturation was approximately 80% on room air. No further history is available as patient appears to be laboring all her breathing. Symptoms are noted to be highly severe. Patient's primary care [facility] the [facility] was Dr. Gomes. Symptoms noted to be severe to critical. No other modifying factors. No other associated signs and symptoms. No other complaints were noted. She is noted to have a fvt in left upper arm, is in the icu, intubated, diffiucult to obtain hx, most of hx is from chart. Coded Allergies: No Known Allergies (Unverified , 09/15/18) Past Medical History: other - Lymphedema, pleural effusion Past Surgical History: other - Port-A-Cath right arm, prior surgery left chest Social History Narrative Patient is at a pen[facility]iary Now: No Reviewed Nursing Documentation: PMH: Agreed; PSxH: Agreed Hx Hypertension: Yes Hx Diabetes: Yes - DM type 2 Review of Systems: limited PE Vital Signs Last 24 Hour Vital Signs Date Time Temp Pulse Resp B/P (MAP) Pulse Ox O2 Delivery O2 Flow Rate FiO2 09/19/18 20:51 83 19 60 09/19/18 19:28 77 19 60 09/19/18 19:00 81 22 128/62 (84) 99 09/19/18 18:00 88 20 146/66 (92) 99 09/19/18 17:38 105/51 09/19/18 17:15 72 20 40 09/19/18 17:00 74 19 105/51 (69) 100 09/19/18 16:00 98.8 74 17 118/64 (82) 97 09/19/18 16:00 Mechanical Ventilator 09/19/18 16:00 72 09/19/18 16:00 60 09/19/18 15:14 62 24 40 09/19/18 15:00 79 16 116/63 (80) 100 09/19/18 14:00 70 16 96/45 (62) 100 09/19/18 13:29 60 21 40 09/19/18 13:00 77 16 130/63 (85) 100 09/19/18 12:00 40 09/19/18 12:00 Mechanical Ventilator 09/19/18 12:00 80 09/19/18 12:00 98.8 80 18 117/67 (84) 100 09/19/18 11:15 40 09/19/18 11:00 77 16 125/75 (92) 100 09/19/18 10:00 93 17 130/67 (88) 100 09/19/18 09:13 109/68 09/19/18 09:12 91 109/68 09/19/18 09:00 92 26 40 09/19/18 09:00 114 17 109/68 (82) 100 09/19/18 08:00 132 09/19/18 08:00 Mechanical Ventilator 09/19/18 08:00 98.9 112 16 114/62 (79) 100 09/19/18 08:00 40 09/19/18 07:15 96 28 40 09/19/18 07:00 72 18 95/54 (68) 100 09/19/18 06:00 79 18 91/52 (65) 100 09/19/18 05:30 82 17 107/59 (75) 100 09/19/18 05:24 80 18 40 09/19/18 05:00 97 22 136/94 (108) 98 09/19/18 04:30 87 10 117/68 (84) 100 09/19/18 04:00 40 09/19/18 04:00 109 09/19/18 04:00 99.7 90 23 139/63 (88) 100 09/19/18 04:00 Mechanical Ventilator 09/19/18 03:30 101 28 140/69 (92) 98 09/19/18 03:14 86 17 40 09/19/18 03:00 82 21 85/34 (51) 100 09/19/18 02:00 94 17 136/63 (87) 99 09/19/18 01:20 96 20 40 09/19/18 01:00 93 17 145/75 (98) 100 09/19/18 00:30 93 23 147/69 (95) 100 09/19/18 00:00 40 09/19/18 00:00 Mechanical Ventilator 09/19/18 00:00 98.7 120 19 159/75 (103) 100 09/18/18 23:12 96 24 40 09/18/18 23:00 98 21 142/68 (92) 99 09/18/18 22:30 90 22 141/66 (91) 100 09/18/18 22:00 97 18 141/68 (92) 100 09/18/18 21:30 120 29 159/75 (103) 98 09/18/18 21:29 127 178/84 Sp02 EP Interpretation: reviewed, abnormal General Appearance: severe distress, lethargic, Chronically Ill Head: atraumatic Eyes: bilateral eye PERRL ENT: moist mucus membranes Neck: full range of motion, supple Respiratory: respiratory distress, decreased breath sounds ++ intubated Cardiovascular: regular rate, rhythm, edema - Left upper extremity, bilateral lower extremity Gastrointestinal: normal inspection, soft, no hernia Genitourinary: deferred Musculoskeletal: swelling - Left upper extremity and right arm Neurologic: responsive, other - Lethargic but awake Psychiatric: anxious Skin: normal inspection Labs Test 09/15/18 17:28 09/15/18 19:40 White Blood Count 18.6 K/UL (4.8-10.8) Red Blood Count 3.79 M/UL (4.20-5.40) Hemoglobin 11.0 G/DL (12.0-16.0) Hematocrit 34.9 % (37.0-47.0) Mean Corpuscular Volume 92 FL (80-99) Mean Corpuscular Hemoglobin 29.1 PG (27.0-31.0) Mean Corpuscular Hemoglobin Concent 31.5 G/DL (32.0-36.0) Red Cell Distribution Width 15.4 % (11.6-14.8) Platelet Count 371 K/UL (150-450) Mean Platelet Volume 5.0 FL (6.5-10.1) Neutrophils (%) (Auto) % (45.0-75.0) Lymphocytes (%) (Auto) % (20.0-45.0) Monocytes (%) (Auto) % (1.0-10.0) Eosinophils (%) (Auto) % (0.0-3.0) Basophils (%) (Auto) % (0.0-2.0) Differential Total Cells Counted 100 Neutrophils % (Manual) 91 % (45-75) Lymphocytes % (Manual) 3 % (20-45) Monocytes % (Manual) 0 % (1-10) Eosinophils % (Manual) 0 % (0-3) Basophils % (Manual) 0 % (0-2) Band Neutrophils 6 % (0-8) Platelet Estimate Adequate Platelet Morphology Normal Polychromasia 1+ Hypochromasia 1+ Anisocytosis 1+ Prothrombin Time 10.6 SEC (9.30-11.50) Prothromb Time International Ratio 1.0 (0.9-1.1) Activated Partial Thromboplast Time 25 SEC (23-33) Sodium Level 139 MMOL/L (136-145) Potassium Level 4.0 MMOL/L (3.5-5.1) Chloride Level 104 MMOL/L (98-107) Carbon Dioxide Level 30 MMOL/L (21-32) Anion Gap 5 mmol/L (5-15) Blood Urea Nitrogen 16 mg/dL (7-18) Creatinine 0.9 MG/DL (0.55-1.30) Estimat Glomerular Filtration Rate > 60 mL/min (>60) Glucose Level 208 MG/DL (74-106) Calcium Level 9.3 MG/DL (8.5-10.1) Total Bilirubin 0.3 MG/DL (0.2-1.0) Aspartate Amino Transf (AST/SGOT) 16 U/L (15-37) Alanine Aminotransferase (ALT/SGPT) 10 U/L (12-78) Alkaline Phosphatase 93 U/L (46-116) Total Creatine Kinase 18 U/L (26-308) Creatine Kinase MB 0.5 NG/ML (0.0-3.6) Creatine Kinase MB Relative Index 2.7 Troponin I 0.003 ng/mL (0.000-0.056) Pro-B-Type Natriuretic Peptide 1063 pg/mL (0-125) Total Protein 5.8 G/DL (6.4-8.2) Albumin 1.9 G/DL (3.4-5.0) Globulin 3.9 g/dL Albumin/Globulin Ratio 0.5 (1.0-2.7) Lipase 127 U/L (73-393) Arterial Blood pH 7.373 (7.350-7.450) Arterial Blood Partial Pressure CO2 47.3 mmHg (35.0-45.0) Arterial Blood Partial Pressure O2 355.4 mmHg (75.0-100.0) Arterial Blood HCO3 26.9 mmol/L (22.0-26.0) Arterial Blood Oxygen Saturation 99.3 % (95-100) Arterial Blood Base Excess 1.3 (-2-2) Chris Test Positive Assessment and Recs # DVT of the left brachial vein which was discussed with the RN --> start on lovenox and coumadin per pharmacy dosing inr goal 2-3 --> will again need to review duplex as the emr chart does not confirm a active dvt in the brachial vein --> outpatient will need lifelong anticoagulation given persistent malignancy, in this case lovenox would be best but likely coumadin is most practical # Metastatic breast cancer, does have stage iv disease, lung involvement and now on a vent, has received chemotherpay before --> given multiple comorbdities and fluid buildup in the lungs, would caution against aggressive chemotherapy given poor performance status --> obtain outside medical records in regards to her prior treatment if any, no familyby bedside --> currently imaging reviewed # Anemia of chronic disease (or of iron deficiency) due to underlying chronic medical issues, multifactorial --> Anemia workup has been ordered, rule out gi bleed --> No evidence of hemolysis is noted, peripheral smear has been reviewed. --> Hgb goal >7. Transfuse prn. --> Epogen or iron at this time is not particularly indicated --> Medications have been reviewed --> evaluate with Gi team prn --> transfuse if hgb is < 7 (will trend CBC daily) --> low threshold for gi evaluation in case has occult + # Sepsis, shock, sirs, pna, chf, respiratory failure, leukocytosis, fevers --> on abx as per id team --> appreciate recs, review imaging as needed # Malignant effusions bilaterally with PleurX catheters. --> per pulm care # Respiratory failure, currently on vent. Continue treatment per Pulmonary Medicine. # Diabetes mellitus. # Hypertension. # Blood sugar and blood pressure treatment for diabetes and hypertension per Primary. # Port-A-Cath. The timing of this note does not necessarily reflect the time of the patient was seen. Greatly appreciate consultation! Dario Grayson MD Sep 19, 2018 21:35
--- NOTE | 2018-09-19 22:37 | General Progress Note ---
Assessment/Plan Assessment/Plan: GI CONSULT ATSP for OB (+) stools Assessment - OB (+) stools - metastatic BRCA with malignant pleural effusions - Resp failure - Dysphagia / OGT - edema - DM - Poor prognosis Recommendations - supportive care - monitor CBC - PPI - OK for Lovenox - not a good candidate for endoscopy, given overall poor health Will follow Thank you Haley Mao MD Subjective Allergies: Coded Allergies: No Known Allergies (Unverified , 09/15/18) Objective Last 24 Hour Vital Signs Date Time Temp Pulse Resp B/P (MAP) Pulse Ox O2 Delivery O2 Flow Rate FiO2 09/19/18 21:15 88 121/83 09/19/18 20:51 83 19 60 09/19/18 19:28 77 19 60 09/19/18 19:00 81 22 128/62 (84) 99 09/19/18 18:00 88 20 146/66 (92) 99 09/19/18 17:38 105/51 09/19/18 17:15 72 20 40 09/19/18 17:00 74 19 105/51 (69) 100 09/19/18 16:00 98.8 74 17 118/64 (82) 97 09/19/18 16:00 Mechanical Ventilator 09/19/18 16:00 72 09/19/18 16:00 60 09/19/18 15:14 62 24 40 09/19/18 15:00 79 16 116/63 (80) 100 09/19/18 14:00 70 16 96/45 (62) 100 09/19/18 13:29 60 21 40 09/19/18 13:00 77 16 130/63 (85) 100 09/19/18 12:00 40 09/19/18 12:00 Mechanical Ventilator 09/19/18 12:00 80 09/19/18 12:00 98.8 80 18 117/67 (84) 100 09/19/18 11:15 40 09/19/18 11:00 77 16 125/75 (92) 100 09/19/18 10:00 93 17 130/67 (88) 100 09/19/18 09:13 109/68 09/19/18 09:12 91 109/68 09/19/18 09:00 92 26 40 09/19/18 09:00 114 17 109/68 (82) 100 09/19/18 08:00 132 09/19/18 08:00 Mechanical Ventilator 09/19/18 08:00 98.9 112 16 114/62 (79) 100 09/19/18 08:00 40 09/19/18 07:15 96 28 40 09/19/18 07:00 72 18 95/54 (68) 100 09/19/18 06:00 79 18 91/52 (65) 100 09/19/18 05:30 82 17 107/59 (75) 100 09/19/18 05:24 80 18 40 09/19/18 05:00 97 22 136/94 (108) 98 09/19/18 04:30 87 10 117/68 (84) 100 09/19/18 04:00 40 09/19/18 04:00 109 09/19/18 04:00 99.7 90 23 139/63 (88) 100 09/19/18 04:00 Mechanical Ventilator 09/19/18 03:30 101 28 140/69 (92) 98 09/19/18 03:14 86 17 40 09/19/18 03:00 82 21 85/34 (51) 100 09/19/18 02:00 94 17 136/63 (87) 99 09/19/18 01:20 96 20 40 09/19/18 01:00 93 17 145/75 (98) 100 09/19/18 00:30 93 23 147/69 (95) 100 09/19/18 00:00 40 09/19/18 00:00 Mechanical Ventilator 09/19/18 00:00 98.7 120 19 159/75 (103) 100 09/18/18 23:12 96 24 40 09/18/18 23:00 98 21 142/68 (92) 99 09/18/18 22:30 90 22 141/66 (91) 100 Intake and Output 09/18/18 09/19/18 19:00 07:00 Intake Total 805.924 ml 1461.028 ml Output Total 480 ml 495 ml Balance 325.924 ml 966.028 ml Free Water 75 ml IV Total 145.924 ml 671.028 ml Tube Feeding 660 ml 715 ml Output Urine Total 480 ml 495 ml Laboratory Tests 09/19/18 04:00: White Blood Count 14.0H, Red Blood Count 3.23L, Hemoglobin 9.5L, Hematocrit 29.8L, Mean Corpuscular Volume 92, Mean Corpuscular Hemoglobin 29.3, Mean Corpuscular Hemoglobin Concent 31.8L, Red Cell Distribution Width 15.7H, Platelet Count 296, Mean Platelet Volume 6.2L, Neutrophils (%) (Auto) , Lymphocytes (%) (Auto) , Monocytes (%) (Auto) , Eosinophils (%) (Auto) , Basophils (%) (Auto) , Differential Total Cells Counted 100, Neutrophils % ( Manual) 87H, Lymphocytes % (Manual) 8L, Monocytes % (Manual) 5, Eosinophils % ( Manual) 0, Basophils % (Manual) 0, Band Neutrophils 0, Platelet Estimate Adequate, Platelet Morphology Normal, Hypochromasia 2+, Anisocytosis 1+, Activated Partial Thromboplast Time 45H, Sodium Level 139, Potassium Level 3.3L , Chloride Level 103, Carbon Dioxide Level 30, Anion Gap 6, Blood Urea Nitrogen 15, Creatinine 1.0, Estimat Glomerular Filtration Rate > 60, Glucose Level 133H , Calcium Level 8.4L, Total Bilirubin 0.2, Aspartate Amino Transf (AST/SGOT) 16 , Alanine Aminotransferase (ALT/SGPT) 12, Alkaline Phosphatase 102, Total Protein 5.2L, Albumin 1.3L, Globulin 3.9, Albumin/Globulin Ratio 0.3L 09/19/18 05:20: Stool Occult Blood Positive 09/19/18 10:55: Activated Partial Thromboplast Time 67H Height (Feet): 5 Height (Inches): 5.00 Weight (Pounds): 223 Haley Mao MD Sep 19, 2018 22:36
[2018-09-19] MEDS: LORazepam Inj 2mg/ml 1ml IV PRN (23:04)
[2018-09-19] MEDS: Pantoprazole Inj IVP SCH (23:04)
[2018-09-20] VITALS (24 sets, daily range): BP systolic 93–149; BP diastolic 53–83
[2018-09-20] MEDS: NovoLOG Insulin Flexpen SUBQ SCH ×4 (00:57→18:00)
[2018-09-20] MEDS: Piperacillin/Tazobactam 3.375 GM in NS 110 ML IVPB SCH ×3 (02:30→18:25)
[2018-09-20] MEDS: Vancomycin 750mg/D5W 275ml IVPB SCH ×4 (04:15→16:00)
[2018-09-20 05:15] LABS: BASOPHILS % (AUTO) 0.9 % (0.0-2.0); EOSINOPHILS % (AUTO) 0.8 % (0.0-3.0); HEMATOCRIT 29.8 % (37.0-47.0); HEMOGLOBIN 9.2 G/DL (12.0-16.0); LYMPHOCYTES % (AUTO) 6.5 % (20.0-45.0); MEAN CORPUSCULAR VOLUME 94 FL (80-99); MONOCYTES % (AUTO) 10.6 % (1.0-10.0); NEUTROPHILS % (AUTO) 81.2 % (45.0-75.0); PLATELET COUNT 292 K/UL (150-450); RED BLOOD COUNT 3.16 M/UL (4.20-5.40); RED CELL DISTRIBUTION WIDTH 16.8 % (11.6-14.8); WHITE BLOOD COUNT 10.3 K/UL (4.8-10.8)
[2018-09-20 05:35] LABS: ALANINE AMINOTRANSFERASE 11 U/L (12-78); ALBUMIN 1.4 G/DL (3.4-5.0); ALBUMIN/GLOBULIN RATIO 0.4 (1.0-2.7); ALKALINE PHOSPHATASE 97 U/L (46-116); ANION GAP 5 mmol/L (5-15); ASPARTATE AMINO TRANSFERASE 14 U/L (15-37); BILIRUBIN,TOTAL 0.2 MG/DL (0.2-1.0); BLOOD UREA NITROGEN 15 mg/dL (7-18); CALCIUM 8.9 MG/DL (8.5-10.1); CARBON DIOXIDE 30 MMOL/L (21-32); CHLORIDE 104 MMOL/L (98-107); POTASSIUM 3.5 MMOL/L (3.5-5.1); SODIUM 139 MMOL/L (136-145)
--- NOTE | 2018-09-20 06:30 | Consultation ---
DATE OF CONSULTATION: 09/19/2018 GASTROENTEROLOGY CONSULTATION CHIEF COMPLAINT: I was asked to see this patient by Dr. Ernesto Diaz for evaluation of heme-positive stools and anemia. HISTORY OF PRESENT ILLNESS: The patient is an unfortunate 68-year-old woman with a history of metastatic breast cancer, came to the hospital due to respiratory distress. She is from a [place] [facility]. She has extensive breast cancer with bilateral malignant pleural effusions requiring bilateral PleurX catheters. She has significant edema in all extremities and is debilitated. In the state of shock, she has become ventilatory dependent and she is also on anticoagulation, which has been changed to Lovenox. This is given her deep vein thrombosis in the upper extremity. The patient was found to have heme-positive stools and she is anemic and therefore this consultation was generated. There is no actual melena noted. The patient is unable to provide any history herself. PAST MEDICAL HISTORY: History of metastatic breast cancer, respiratory failure, malnutrition, lymphedema, diabetes, hypertension. ALLERGIES: None. FAMILY HISTORY: Unavailable. SOCIAL HISTORY: The patient denies history of smoking or drinking. REVIEW OF SYSTEMS: Otherwise negative. PHYSICAL EXAMINATION: GENERAL: Debilitated elderly woman, seen in the ICU on the ventilator. HEENT: Normocephalic, atraumatic. Endotracheal tube is in place. Orogastric tube is in place. NECK: Supple. CHEST: Reveals coarse breath sounds and rhonchi. CARDIOVASCULAR: Revealed regular rate. ABDOMEN: Soft. Bilateral PleurX catheters were seen. EXTREMITIES: Revealed significant lymphedema. NEUROLOGIC: Notable for obtundation. LABORATORY DATA: Laboratory data were noted. ASSESSMENT: 1. This patient has heme-positive stools, which is due to variety of causes including upper and lower gastroscope pathologies. She will be placed on a proton-pump inhibitor for upper gastrointestinal tract. The patient has heme-positive stools, but she does not have tricia bleeding and her hematocrit is stable. The gastrointestinal workup at this point is not warranted given the patient's overall poor health and her significant poor prognosis. 2. Should she have any evidence of gastrointestinal bleeding, an endoscopy or colonoscopy to be contemplated to stop the bleeding. RECOMMENDATIONS: 1. Conservative management for now. 2. Followup CBC. 3. Proton pump inhibitor. 4. Okay to continue Lovenox. 5. Check and treat iron deficiency. Thank you for asking me to participate in the care of this patient. Haley Moa M.D. DR: Oliver JOB#: [id number] CC: ELMER
--- NOTE | 2018-09-20 08:15 | Progress Note ---
DATE: 09/19/2018 CARDIOLOGY PROGRESS NOTE SUBJECTIVE: The patient is seen and evaluated. Case discussed with Dr. Diaz. The patient remains on ventilator support. It appears that the pleural catheters are being drained daily. OBJECTIVE: VITAL SIGNS: Blood pressure 109/68, pulse 91, and respiratory rate 26. Episodes of low blood pressure down to 85/34 noted. LUNGS: Diminished breath sounds. Scattered rhonchi. HEART: Regular rhythm and rate. Normal S1, S2. ABDOMEN: Soft. EXTREMITIES: Trace edema. Port-A-Cath site is clean and dry. LABORATORY DATA: White count 14 and hemoglobin 9.5. Potassium 3.3, BUN 15, and creatinine 1. Albumin 1.3. Duplex scan revealed no DVT. IMPRESSION: 1. Metastatic breast cancer. 2. Malignant pleural effusion. 3. Sepsis with recovered shock. 4. 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 5. Hypertensive heart disease. 6. Respiratory failure. PLAN: 1. Antimicrobials. 2. Monitor electrolytes and blood counts. 3. DVT prophylaxis. 4. Drainage of PleurX catheters daily. 5. Protein supplement. 6. Weaning efforts. 7. Diuresis. Giovany Rocha M.D. DR: NAVYA JOB#: [id number] CC:
[2018-09-20] MEDS: Pantoprazole Inj IVP SCH ×2 (09:28→20:33)
[2018-09-20] MEDS: Metoprolol Tartrate 50mg tab NG SCH ×2 (09:29→20:33)
[2018-09-20] MEDS: Spironolactone 25mg tab NG SCH (09:29)
[2018-09-20] MEDS: Lisinopril 20mg tab NG SCH ×2 (09:29→18:25)
--- NOTE | 2018-09-20 11:24 | Diagnostic Imaging Report ---
Indication: Pleural effusion suspected on chest radiograph, nonradiating chronic pleural drainage catheter Technique: Grayscale images of the left chest Comparison: 09/18/2018 Findings: Trace left pleural effusion is demonstrated, amount appearing similar to previous study. Atelectatic/consolidated lung is also noted Impression: Trace left pleural effusion Left basilar opacity seen on recent chest radiograph most likely due to atelectatic/consolidated lung
--- NOTE | 2018-09-20 13:35 | Pulmonology Progress Note ---
Assessment/Plan Assessment/Plan Acute respiratory failure Septic shock, tapering pressors Metastatic breast cancer Bilateral malignant pleural effusion Diabetes Anemia The R pleural catheter is drained daily US shows the L side has no fluid; may be organized effusion or atelectasis/ infiltrate Antibiotics will be continued wean as tolerated; may be ready for extubation soon Subjective ROS Limited/Unobtainable: Yes Allergies: Coded Allergies: No Known Allergies (Unverified , 09/15/18) Objective Last 24 Hour Vital Signs Date Time Temp Pulse Resp B/P (MAP) Pulse Ox O2 Delivery O2 Flow Rate FiO2 09/20/18 13:05 Non-Rebreather 09/20/18 12:00 98.5 79 17 119/80 (93) 100 09/20/18 12:00 81 09/20/18 12:00 40 09/20/18 12:00 Mechanical Ventilator 09/20/18 11:00 86 19 135/65 (88) 100 09/20/18 10:15 84 22 40 09/20/18 10:00 81 19 126/65 (85) 100 09/20/18 09:29 125/61 09/20/18 09:29 77 125/61 09/20/18 09:00 80 19 139/70 (93) 100 09/20/18 08:51 77 20 40 09/20/18 08:00 98.5 79 17 141/63 (89) 100 09/20/18 08:00 75 09/20/18 08:00 40 09/20/18 08:00 Mechanical Ventilator 09/20/18 07:30 82 18 40 09/20/18 07:00 77 19 138/61 (86) 100 09/20/18 06:00 81 19 125/61 (82) 100 09/20/18 05:28 79 16 40 09/20/18 05:00 85 18 93/53 (66) 100 09/20/18 04:00 40 09/20/18 04:00 Mechanical Ventilator 09/20/18 04:00 98.3 79 17 102/63 (76) 100 09/20/18 04:00 72 09/20/18 03:00 75 16 117/53 (74) 100 09/20/18 02:55 77 20 40 09/20/18 02:00 103 18 149/74 (99) 100 09/20/18 01:13 99 19 40 09/20/18 01:00 97 17 136/63 (87) 100 09/20/18 00:00 40 09/20/18 00:00 Mechanical Ventilator 09/20/18 00:00 99.1 99 18 145/75 (98) 100 09/20/18 00:00 99 09/19/18 23:33 103 19 40 09/19/18 23:00 97 17 126/54 (78) 100 09/19/18 22:00 94 18 110/65 (80) 100 09/19/18 21:15 88 121/83 09/19/18 21:00 84 17 121/83 (96) 100 09/19/18 20:51 83 19 40 09/19/18 20:00 40 09/19/18 20:00 99.5 75 18 93/51 (65) 100 09/19/18 20:00 Mechanical Ventilator 09/19/18 20:00 89 09/19/18 19:28 77 19 40 09/19/18 19:00 81 22 128/62 (84) 99 09/19/18 18:00 88 20 146/66 (92) 99 09/19/18 17:38 105/51 09/19/18 17:15 72 20 40 09/19/18 17:00 74 19 105/51 (69) 100 09/19/18 16:00 98.8 74 17 118/64 (82) 97 09/19/18 16:00 Mechanical Ventilator 09/19/18 16:00 72 09/19/18 16:00 60 09/19/18 15:14 62 24 40 09/19/18 15:00 79 16 116/63 (80) 100 09/19/18 14:00 70 16 96/45 (62) 100 Intake and Output 09/19/18 09/20/18 18:59 06:59 Intake Total 1408.823 ml 1399.1663 ml Output Total 670 ml 570 ml Balance 738.823 ml 829.1663 ml Free Water 110 ml 180 ml IV Total 638.823 ml 559.1663 ml Tube Feeding 660 ml 660 ml Output Urine Total 395 ml 570 ml Other 275 ml # Bowel Movements 1 1 Objective orally intubated on vent; bilateral pleural catheters General Appearance: no acute distress HEENT: atraumatic Respiratory/Chest: decreased breath sounds - left Microbiology Date/Time Source Procedure Growth Status 09/19/18 12:30 Pleural Fluid Gram Stain - Final Resulted 09/19/18 12:30 Pleural Fluid Body Fluid Culture - Preliminary NO GROWTH Resulted Laboratory Tests 09/20/18 04:15: White Blood Count 10.3, Red Blood Count 3.16L, Hemoglobin 9.2L, Hematocrit 29.8L , Mean Corpuscular Volume 94, Mean Corpuscular Hemoglobin 29.0, Mean Corpuscular Hemoglobin Concent 30.8L, Red Cell Distribution Width 16.8H, Platelet Count 292, Mean Platelet Volume 6.3L, Neutrophils (%) (Auto) 81.2H, Lymphocytes (%) (Auto) 6.5L, Monocytes (%) (Auto) 10.6H, Eosinophils (%) (Auto) 0.8, Basophils (%) (Auto) 0.9, Sodium Level 139, Potassium Level 3.5, Chloride Level 104, Carbon Dioxide Level 30, Anion Gap 5, Blood Urea Nitrogen 15, Creatinine 1.0, Estimat Glomerular Filtration Rate > 60, Glucose Level 172H, Calcium Level 8.9, Total Bilirubin 0.2, Aspartate Amino Transf (AST/SGOT) 14L, Alanine Aminotransferase (ALT/SGPT) 11L, Alkaline Phosphatase 97, Total Protein 5.3L, Albumin 1.4L, Globulin 3.9, Albumin/Globulin Ratio 0.4L 09/20/18 12:30: Arterial Blood pH 7.432, Arterial Blood Partial Pressure CO2 41.1, Arterial Blood Partial Pressure O2 88.8, Arterial Blood HCO3 26.8H, Arterial Blood Oxygen Saturation 96.7, Arterial Blood Base Excess 2.3H, Chris Test Positive Current Medications Medications (Trade) Dose Ordered Sig/Ruddy Route PRN Reason Start Time Stop Time Status Last Admin Dose Admin Acetaminophen (Tylenol) 500 mg Q6H PRN ORAL Mild Pain/Temp > 100.5 09/15/18 23:15 10/15/18 23:14 09/17/18 23:59 Chlorhexidine Gluconate (Tawanna-Hex 2%) 1 applic DAILY@1999 TOPIC 09/16/18 20:00 10/16/18 19:59 09/19/18 21:15 Dextrose (Dextrose 50%) 25 ml Q30M PRN IV Hypoglycemia 09/17/18 09:30 10/17/18 09:29 Dextrose (Dextrose 50%) 50 ml Q30M PRN IV Hypoglycemia 09/17/18 09:30 10/17/18 09:29 Enoxaparin Sodium (Lovenox) 30 mg Q24H SUBQ 09/19/18 16:00 10/19/18 15:59 09/19/18 16:47 Enoxaparin Sodium (Lovenox) 120 mg Q24H SUBQ 09/19/18 16:00 10/19/18 15:59 09/19/18 16:47 Furosemide (Lasix) 40 mg DAILY IV 09/20/18 09:00 10/20/18 08:59 09/20/18 09:28 Hydralazine HCl (Apresoline) 10 mg Q6H PRN NG SBP above 160 09/18/18 12:15 10/18/18 12:14 Insulin Aspart (NovoLOG) EVERY 6 HOURS SUBQ 09/17/18 12:00 10/17/18 11:29 09/20/18 05:51 Lisinopril (Prinivil) 20 mg BID NG 09/18/18 12:15 10/18/18 12:14 09/20/18 09:29 Lorazepam (Ativan 2mg/ml 1ml) 2 mg Q4H PRN IV For Anxiety 09/15/18 22:30 09/22/18 22:29 09/19/18 23:04 Metoprolol Tartrate (Lopressor) 50 mg Q12HR NG 09/18/18 21:00 10/18/18 20:59 09/20/18 09:29 Pantoprazole (Protonix) 40 mg EVERY 12 HOURS IVP 09/19/18 22:45 10/19/18 22:44 09/20/18 09:28 Piperacillin Sod/ Tazobactam Sod 3.375 gm/Sodium Chloride 110 ml @ 27.5 mls/hr Q8H IVPB 09/16/18 02:00 09/23/18 01:59 09/20/18 09:29 Potassium Chloride (K-Dur) 20 meq BID NG 09/19/18 18:00 10/19/18 17:59 09/20/18 09:28 Spironolactone (Aldactone) 25 mg DAILY NG 09/20/18 09:00 10/20/18 08:59 09/20/18 09:29 Vancomycin HCl (Vanco rx to dose) 1 ea DAILY PRN MISC Per rx protocol 09/15/18 22:30 10/15/18 22:29 Vancomycin HCl 750 mg/Dextrose 275 ml @ 183.333 mls/hr Q12H IVPB 09/19/18 16:00 09/24/18 15:59 09/20/18 04:15 Ernesto Diaz MD September 20, 2018 13:35
[2018-09-20] MEDS: Enoxaparin 120 mg inj SUBQ SCH (16:00)
[2018-09-20] MEDS: Enoxaparin 30mg Inj SUBQ SCH (16:00)
--- NOTE | 2018-09-20 17:19 | General Progress Note ---
Assessment/Plan Assessment/Plan: Assessment and Recs # DVT of the left brachial vein which was discussed with the RN --> start on lovenox at this time, also is on coumadin inr goal 2-3 (another option is a noac) --> will again need to review duplex as the emr chart does not confirm a active dvt in the brachial vein --> outpatient will need lifelong anticoagulation given persistent malignancy, in this case lovenox would be best but likely coumadin is most practical # Metastatic breast cancer, does have stage iv disease, lung involvement and now on a vent, has received chemotherpay before --> given multiple comorbdities and fluid buildup in the lungs, would caution against aggressive chemotherapy given poor performance status --> obtain outside medical records in regards to her prior treatment if any, no familyby bedside --> currently imaging reviewed # Anemia of chronic disease due to underlying chronic medical issues, multifactorial --> Anemia workup shows evidence of acd --> No evidence of hemolysis is noted, peripheral smear has been reviewed. --> Hgb goal >7. Transfuse prn. --> Epogen or iron at this time is not particularly indicated --> Medications have been reviewed --> evaluate with Gi team prn --> transfuse if hgb is < 7 (will trend CBC daily) --> low threshold for gi evaluation in case has occult + # Sepsis, shock, sirs, pna, chf, respiratory failure, leukocytosis, fevers --> on abx as per id team --> appreciate recs, review imaging as needed # Malignant effusions bilaterally with PleurX catheters. --> per pulm care # Respiratory failure, currently on vent --> rx as per pulm # Diabetes mellitus. # Hypertension. # Blood sugar and blood pressure treatment for diabetes and hypertension per Primary. # Port-A-Cath. The timing of this note does not necessarily reflect the time of the patient was seen. Greatly appreciate consultation! Subjective Constitutional: Denies: no symptoms, chills, diaphoresis, fever, malaise, weakness, other HEENT: Denies: no symptoms, eye pain, blurred vision, tearing, double vision, ear pain, ear discharge, nose pain, nose congestion, throat pain, throat swelling, mouth pain, mouth swelling, other Cardiovascular: Denies: no symptoms, chest pain, edema, irregular heart rate, lightheadedness, palpitations, syncope, other Respiratory: Denies: no symptoms, cough, orthopnea, shortness of breath, SOB with excertion, SOB at rest, sputum, stridor, wheezing, other Gastrointestinal/Abdominal: Denies: no symptoms, abdomen distended, abdominal pain, black stools, tarry stools, blood in stool, constipated, diarrhea, difficulty swallowing, nausea, poor appetite, poor fluid intake, rectal bleeding , vomiting, other Genitourinary: Denies: no symptoms, burning, discharge, frequency, flank pain, hematuria, incontinence, pain, urgency, other Neurologic/Psychiatric: Denies: no symptoms, anxiety, depressed, emotional problems, headache, numbness, paresthesia, pre-existing deficit, seizure, tingling, tremors, weakness, other Allergies: Coded Allergies: No Known Allergies (Unverified , 09/15/18) Subjective 09/20: no events, no fevers or chills, with pleural effusion is noted, seen by pulm, on lovenox Objective Last 24 Hour Vital Signs Date Time Temp Pulse Resp B/P (MAP) Pulse Ox O2 Delivery O2 Flow Rate FiO2 09/20/18 17:00 85 19 127/66 (86) 100 09/20/18 16:00 85 09/20/18 16:00 98.0 82 17 130/80 (97) 100 09/20/18 16:00 Non-Rebreather Non-Rebreather 09/20/18 15:00 86 19 125/67 (86) 100 09/20/18 14:00 80 19 129/71 (90) 100 09/20/18 13:05 Non-Rebreather 09/20/18 13:00 85 19 132/65 (87) 100 09/20/18 12:20 Venturi Mask 10.0 35 09/20/18 12:20 99 Venturi Mask 10.0 35 09/20/18 12:15 Venturi Mask 10.0 35 09/20/18 12:15 80 20 40 40 09/20/18 12:15 99 09/20/18 12:00 98.5 79 17 119/80 (93) 100 09/20/18 12:00 81 09/20/18 12:00 40 09/20/18 12:00 Mechanical Ventilator 09/20/18 11:00 86 19 135/65 (88) 100 09/20/18 10:15 84 22 40 09/20/18 10:00 81 19 126/65 (85) 100 09/20/18 09:29 125/61 09/20/18 09:29 77 125/61 09/20/18 09:00 80 19 139/70 (93) 100 09/20/18 08:51 77 20 40 09/20/18 08:00 98.5 79 17 141/63 (89) 100 09/20/18 08:00 75 09/20/18 08:00 40 09/20/18 08:00 Mechanical Ventilator 09/20/18 07:30 82 18 40 09/20/18 07:00 77 19 138/61 (86) 100 09/20/18 06:00 81 19 125/61 (82) 100 09/20/18 05:28 79 16 40 09/20/18 05:00 85 18 93/53 (66) 100 09/20/18 04:00 40 09/20/18 04:00 Mechanical Ventilator 09/20/18 04:00 98.3 79 17 102/63 (76) 100 09/20/18 04:00 72 09/20/18 03:00 75 16 117/53 (74) 100 09/20/18 02:55 77 20 40 09/20/18 02:00 103 18 149/74 (99) 100 09/20/18 01:13 99 19 40 09/20/18 01:00 97 17 136/63 (87) 100 09/20/18 00:00 40 09/20/18 00:00 Mechanical Ventilator 09/20/18 00:00 99.1 99 18 145/75 (98) 100 09/20/18 00:00 99 09/19/18 23:33 103 19 40 09/19/18 23:00 97 17 126/54 (78) 100 09/19/18 22:00 94 18 110/65 (80) 100 09/19/18 21:15 88 121/83 09/19/18 21:00 84 17 121/83 (96) 100 09/19/18 20:51 83 19 40 09/19/18 20:00 40 09/19/18 20:00 99.5 75 18 93/51 (65) 100 09/19/18 20:00 Mechanical Ventilator 09/19/18 20:00 89 09/19/18 19:28 77 19 40 09/19/18 19:00 81 22 128/62 (84) 99 09/19/18 18:00 88 20 146/66 (92) 99 09/19/18 17:38 105/51 Intake and Output 09/19/18 09/20/18 19:00 07:00 Intake Total 1411.176 ml 1431.6663 ml Output Total 660 ml 620 ml Balance 751.176 ml 811.6663 ml Free Water 110 ml 240 ml IV Total 641.176 ml 531.6663 ml Tube Feeding 660 ml 660 ml Output Urine Total 385 ml 620 ml Other 275 ml # Bowel Movements 1 1 Laboratory Tests 09/20/18 04:15: White Blood Count 10.3, Red Blood Count 3.16L, Hemoglobin 9.2L, Hematocrit 29.8L , Mean Corpuscular Volume 94, Mean Corpuscular Hemoglobin 29.0, Mean Corpuscular Hemoglobin Concent 30.8L, Red Cell Distribution Width 16.8H, Platelet Count 292, Mean Platelet Volume 6.3L, Neutrophils (%) (Auto) 81.2H, Lymphocytes (%) (Auto) 6.5L, Monocytes (%) (Auto) 10.6H, Eosinophils (%) (Auto) 0.8, Basophils (%) (Auto) 0.9, Sodium Level 139, Potassium Level 3.5, Chloride Level 104, Carbon Dioxide Level 30, Anion Gap 5, Blood Urea Nitrogen 15, Creatinine 1.0, Estimat Glomerular Filtration Rate > 60, Glucose Level 172H, Calcium Level 8.9, Total Bilirubin 0.2, Aspartate Amino Transf (AST/SGOT) 14L, Alanine Aminotransferase (ALT/SGPT) 11L, Alkaline Phosphatase 97, Total Protein 5.3L, Albumin 1.4L, Globulin 3.9, Albumin/Globulin Ratio 0.4L 09/20/18 12:30: Arterial Blood pH 7.432, Arterial Blood Partial Pressure CO2 41.1, Arterial Blood Partial Pressure O2 88.8, Arterial Blood HCO3 26.8H, Arterial Blood Oxygen Saturation 96.7, Arterial Blood Base Excess 2.3H, Chris Test Positive Height (Feet): 5 Height (Inches): 5.00 Weight (Pounds): 225 Objective Sp02 EP Interpretation: reviewed, abnormal General Appearance: severe distress, lethargic, Chronically Ill Head: atraumatic Eyes: bilateral eye PERRL ENT: moist mucus membranes Neck: full range of motion, supple Respiratory: respiratory distress, decreased breath sounds ++ intubated Cardiovascular: regular rate, rhythm, edema - Left upper extremity, bilateral lower extremity Gastrointestinal: normal inspection, soft, no hernia Genitourinary: deferred Musculoskeletal: swelling - Left upper extremity and right arm Neurologic: responsive, other - Lethargic but awake Psychiatric: anxious Skin: normal inspection Dario Grayson MD September 20, 2018 17:19
[2018-09-20] MEDS: Dyna-Hex 2% Top Sol 2oz TOPIC SCH (19:38)
--- NOTE | 2018-09-20 20:53 | General Progress Note ---
Assessment/Plan Assessment/Plan: GI CONSULT ATSP for OB (+) stools Assessment - OB (+) stools - metastatic BRCA with malignant pleural effusions - Resp failure --> off vent - Dysphagia / OGT --> out - edema - DM - Poor prognosis Recommendations - supportive care - monitor CBC - PPI - OK for Lovenox - not a good candidate for endoscopy, given overall poor health - check swallow evaluation Subjective Allergies: Coded Allergies: No Known Allergies (Unverified , 09/15/18) Subjective extubated OGT out feels OK d/w RN Objective Last 24 Hour Vital Signs Date Time Temp Pulse Resp B/P (MAP) Pulse Ox O2 Delivery O2 Flow Rate FiO2 09/20/18 20:33 96 139/74 09/20/18 20:00 Non-Rebreather Non-Rebreather 09/20/18 20:00 98.7 96 22 139/74 (95) 100 09/20/18 20:00 96 09/20/18 19:00 81 19 130/62 (84) 100 09/20/18 18:25 127/66 09/20/18 18:00 80 19 122/69 (86) 100 09/20/18 17:00 85 19 127/66 (86) 100 09/20/18 16:00 85 09/20/18 16:00 98.0 82 17 130/80 (97) 100 09/20/18 16:00 Non-Rebreather Non-Rebreather 09/20/18 15:00 86 19 125/67 (86) 100 09/20/18 14:00 80 19 129/71 (90) 100 09/20/18 13:05 Non-Rebreather 09/20/18 13:00 85 19 132/65 (87) 100 09/20/18 12:20 Venturi Mask 10.0 35 09/20/18 12:20 99 Venturi Mask 10.0 35 09/20/18 12:15 Venturi Mask 10.0 35 09/20/18 12:15 80 20 40 40 09/20/18 12:15 99 09/20/18 12:00 98.5 79 17 119/80 (93) 100 09/20/18 12:00 81 09/20/18 12:00 40 09/20/18 12:00 Mechanical Ventilator 09/20/18 11:00 86 19 135/65 (88) 100 09/20/18 10:15 84 22 40 09/20/18 10:00 81 19 126/65 (85) 100 09/20/18 09:29 125/61 09/20/18 09:29 77 125/61 09/20/18 09:00 80 19 139/70 (93) 100 09/20/18 08:51 77 20 40 09/20/18 08:00 98.5 79 17 141/63 (89) 100 09/20/18 08:00 75 09/20/18 08:00 40 09/20/18 08:00 Mechanical Ventilator 09/20/18 07:30 82 18 40 09/20/18 07:00 77 19 138/61 (86) 100 09/20/18 06:00 81 19 125/61 (82) 100 09/20/18 05:28 79 16 40 09/20/18 05:00 85 18 93/53 (66) 100 09/20/18 04:00 40 09/20/18 04:00 Mechanical Ventilator 09/20/18 04:00 98.3 79 17 102/63 (76) 100 09/20/18 04:00 72 09/20/18 03:00 75 16 117/53 (74) 100 09/20/18 02:55 77 20 40 09/20/18 02:00 103 18 149/74 (99) 100 09/20/18 01:13 99 19 40 09/20/18 01:00 97 17 136/63 (87) 100 09/20/18 00:00 40 09/20/18 00:00 Mechanical Ventilator 09/20/18 00:00 99.1 99 18 145/75 (98) 100 09/20/18 00:00 99 09/19/18 23:33 103 19 40 09/19/18 23:00 97 17 126/54 (78) 100 09/19/18 22:00 94 18 110/65 (80) 100 09/19/18 21:15 88 121/83 09/19/18 21:00 84 17 121/83 (96) 100 09/19/18 20:51 83 19 40 Intake and Output 09/19/18 09/20/18 19:00 07:00 Intake Total 1411.176 ml 1431.6663 ml Output Total 660 ml 620 ml Balance 751.176 ml 811.6663 ml Free Water 110 ml 240 ml IV Total 641.176 ml 531.6663 ml Tube Feeding 660 ml 660 ml Output Urine Total 385 ml 620 ml Other 275 ml # Bowel Movements 1 1 Laboratory Tests 09/20/18 04:15: White Blood Count 10.3, Red Blood Count 3.16L, Hemoglobin 9.2L, Hematocrit 29.8L , Mean Corpuscular Volume 94, Mean Corpuscular Hemoglobin 29.0, Mean Corpuscular Hemoglobin Concent 30.8L, Red Cell Distribution Width 16.8H, Platelet Count 292, Mean Platelet Volume 6.3L, Neutrophils (%) (Auto) 81.2H, Lymphocytes (%) (Auto) 6.5L, Monocytes (%) (Auto) 10.6H, Eosinophils (%) (Auto) 0.8, Basophils (%) (Auto) 0.9, Sodium Level 139, Potassium Level 3.5, Chloride Level 104, Carbon Dioxide Level 30, Anion Gap 5, Blood Urea Nitrogen 15, Creatinine 1.0, Estimat Glomerular Filtration Rate > 60, Glucose Level 172H, Calcium Level 8.9, Total Bilirubin 0.2, Aspartate Amino Transf (AST/SGOT) 14L, Alanine Aminotransferase (ALT/SGPT) 11L, Alkaline Phosphatase 97, Total Protein 5.3L, Albumin 1.4L, Globulin 3.9, Albumin/Globulin Ratio 0.4L 09/20/18 12:30: Arterial Blood pH 7.432, Arterial Blood Partial Pressure CO2 41.1, Arterial Blood Partial Pressure O2 88.8, Arterial Blood HCO3 26.8H, Arterial Blood Oxygen Saturation 96.7, Arterial Blood Base Excess 2.3H, Chris Test Positive Height (Feet): 5 Height (Inches): 5.00 Weight (Pounds): 225 Objective WDWN elderly AA woman NCAT supple CTA RRR Abd soft ND, NT (++) edema Haley Mao MD September 20, 2018 20:53
[2018-09-21] VITALS (24 sets, daily range): BP systolic 127–159; BP diastolic 60–89
--- NOTE | 2018-09-21 01:08 | Cardiology Report ---
APPROVED REPORT EKG Measurement Heart [id number] Sinus tachycardia Low voltage QRS Possible Anterolateral infarct, age undetermined Abnormal ECG
[2018-09-21] MEDS: Piperacillin/Tazobactam 3.375 GM in NS 110 ML IVPB SCH ×2 (02:08→10:32)
[2018-09-21] MEDS: Vancomycin 750mg/D5W 275ml IVPB SCH ×4 (04:11→16:22)
--- NOTE | 2018-09-21 04:30 | Progress Note ---
DATE: 09/20/2018 CARDIOLOGY PROGRESS NOTE SUBJECTIVE: The patient was extubated today. Presently, in no acute distress. Her PleurX catheter on the left is not draining because there is no fluid in the cavity. There may be organized effusion or infiltrate. The right PleurX catheter is draining daily. OBJECTIVE: VITAL SIGNS: Blood pressure 119/80, pulse 80, and respirations 18. No fevers. LUNGS: Bilateral breath sounds. Diminished at bases. HEART: Regular rhythm and rate. Normal S1, S2. ABDOMEN: Soft. EXTREMITIES: No edema. LABORATORY DATA: White count 10 and hemoglobin 9.2. ABG, pH 7.43, pCO2 41, and pO2 88. Potassium 3.5. Albumin 1.4. IMPRESSION: 1. Acute respiratory failure status post extubation. 2. Aspiration pneumonia, improved. 3. Cardiomyopathy with acute on chronic diastolic congestive heart failure. 4. Severe protein-calorie malnutrition. 5. Malignant pleural effusion. PLAN: 1. Diuresis efforts. 2. Replace potassium. 3. Recheck magnesium. 4. Trend natriuretic peptide assay. 5. Titrate cardiovascular regimen based on clinical parameters. Giovany Rocha M.D. DR: NAVYA JOB#: [id number] CC:
[2018-09-21 05:06] LABS: BASOPHILS % (AUTO) 1.5 % (0.0-2.0); HEMATOCRIT 30.1 % (37.0-47.0); HEMOGLOBIN 9.3 G/DL (12.0-16.0); LYMPHOCYTES % (AUTO) 9.2 % (20.0-45.0); MEAN CORPUSCULAR VOLUME 94 FL (80-99); MONOCYTES % (AUTO) 9.2 % (1.0-10.0); NEUTROPHILS % (AUTO) 79.2 % (45.0-75.0); PLATELET COUNT 292 K/UL (150-450); RED BLOOD COUNT 3.19 M/UL (4.20-5.40); RED CELL DISTRIBUTION WIDTH 15.9 % (11.6-14.8); WHITE BLOOD COUNT 10.2 K/UL (4.8-10.8)
[2018-09-21 05:30] LABS: ALANINE AMINOTRANSFERASE 12 U/L (12-78); ALBUMIN 1.5 G/DL (3.4-5.0); ALBUMIN/GLOBULIN RATIO 0.4 (1.0-2.7); ALKALINE PHOSPHATASE 93 U/L (46-116); ANION GAP 4 mmol/L (5-15); ASPARTATE AMINO TRANSFERASE 18 U/L (15-37); BILIRUBIN,TOTAL 0.4 MG/DL (0.2-1.0); BLOOD UREA NITROGEN 12 mg/dL (7-18); CALCIUM 8.9 MG/DL (8.5-10.1); CARBON DIOXIDE 33 MMOL/L (21-32); CHLORIDE 104 MMOL/L (98-107); POTASSIUM 3.4 MMOL/L (3.5-5.1); SODIUM 141 MMOL/L (136-145)
[2018-09-21] MEDS: NovoLOG Insulin Flexpen SUBQ SCH ×5 (06:00→23:29)
--- NOTE | 2018-09-21 08:15 | Cardiology Report ---
APPROVED REPORT EXAM: Two-dimensional and M-mode echocardiogram with Doppler and color Doppler. INDICATION Congestive Heart Failure M-Mode DIMENSIONS IVSd1.1 (0.7-1.1cm)Left Atrium (MM)2.8 (1.6-4.0cm) LVDd2.8 (3.5-5.6cm)Aortic Root2.8 (2.0-3.7cm) PWd1.0 (0.7-1.1cm)Aortic Cusp Exc.2.1 (1.5-2.0cm) LVDs2.1 (2.5-4.0cm) PWs1.1 cm Normal left ventricular chamber size. Mild global left ventricular hypokinesis. Left ventricular ejection fraction estimated to be 45 %. Mild left ventricular hypertrophy by 2-D. Small pericardial effusion. Possible posterior pleural effusion. All other cardiac chamber sizes are within normal limits. Focal aortic valve sclerosis with adequate cusp excursion. Thickened mitral valve leaflets with normal excursion. Mitral annulus and aortic root calcification. Pulmonic valve not well visualized. Normal tricuspid valve structure. IVC measured at 1.8 cm with slight physiologic collapse. A color flow and spectral Doppler study was performed and revealed: Mild aortic regurgitation. Trace mitral regurgitation. Mitral diastolic velocities suggest reduced left ventricular relaxation c/w mild LV diastolic dysfunction (Grade I). Moderate tricuspid regurgitation. Tricuspid systolic velocities suggests peak right ventricular systolic pressure of 55 mmHg, consistent with moderate pulmonary hypertension. Pulmonic regurgitation present.
--- NOTE | 2018-09-21 08:34 | General Progress Note ---
Assessment/Plan Assessment/Plan: Assessment - OB (+) stools - metastatic BRCA with malignant pleural effusions - Resp failure --> off vent - Dysphagia / OGT --> out - edema - DM - Poor prognosis Recommendations - supportive care - monitor CBC - PPI - OK for Lovenox - not a good candidate for endoscopy, given overall poor health - check swallow evaluation Subjective Allergies: Coded Allergies: No Known Allergies (Unverified , 09/15/18) Subjective no events feels OK d/w RN swallow eval pending Objective Last 24 Hour Vital Signs Date Time Temp Pulse Resp B/P (MAP) Pulse Ox O2 Delivery O2 Flow Rate FiO2 09/21/18 07:00 97 22 147/68 (94) 98 09/21/18 06:40 100 Venturi Mask 8.0 30 09/21/18 06:40 Venturi Mask 8.0 30 09/21/18 06:00 96 24 143/61 (88) 98 09/21/18 05:00 90 23 150/67 (94) 98 09/21/18 04:00 96 09/21/18 04:00 98.4 96 26 133/64 (87) 100 09/21/18 04:00 Non-Rebreather Non-Rebreather 09/21/18 03:00 119 28 139/83 (101) 98 09/21/18 02:00 95 25 137/64 (88) 100 09/21/18 01:00 107 24 153/63 (93) 98 09/21/18 00:00 Non-Rebreather Non-Rebreather 09/21/18 00:00 98.8 110 27 158/69 (98) 98 09/21/18 00:00 110 09/20/18 23:37 Venturi Mask 10.0 35 09/20/18 23:36 100 Venturi Mask 10.0 35 09/20/18 23:00 103 27 146/72 (96) 99 09/20/18 22:00 96 20 145/83 (103) 100 09/20/18 21:00 92 27 135/57 (83) 100 09/20/18 20:33 96 139/74 09/20/18 20:00 Non-Rebreather Non-Rebreather 09/20/18 20:00 98.7 96 22 139/74 (95) 100 09/20/18 20:00 96 09/20/18 19:00 81 19 130/62 (84) 100 09/20/18 18:25 127/66 09/20/18 18:00 80 19 122/69 (86) 100 09/20/18 17:00 85 19 127/66 (86) 100 09/20/18 16:00 85 09/20/18 16:00 98.0 82 17 130/80 (97) 100 09/20/18 16:00 Non-Rebreather Non-Rebreather 09/20/18 15:00 86 19 125/67 (86) 100 09/20/18 14:00 80 19 129/71 (90) 100 09/20/18 13:05 Non-Rebreather 09/20/18 13:00 85 19 132/65 (87) 100 09/20/18 12:20 Venturi Mask 10.0 35 09/20/18 12:20 99 Venturi Mask 10.0 35 09/20/18 12:15 Venturi Mask 10.0 35 09/20/18 12:15 80 20 40 40 09/20/18 12:15 99 09/20/18 12:00 98.5 79 17 119/80 (93) 100 09/20/18 12:00 81 09/20/18 12:00 40 09/20/18 12:00 Mechanical Ventilator 09/20/18 11:00 86 19 135/65 (88) 100 09/20/18 10:15 84 22 40 09/20/18 10:00 81 19 126/65 (85) 100 09/20/18 09:29 125/61 09/20/18 09:29 77 125/61 09/20/18 09:00 80 19 139/70 (93) 100 09/20/18 08:51 77 20 40 Intake and Output 09/20/18 09/21/18 19:00 07:00 Intake Total 690 ml 385 ml Output Total 2890 ml 1090 ml Balance -2200 ml -705 ml Intake Oral 0 ml Free Water 360 ml IV Total 385 ml Tube Feeding 330 ml Output Urine Total 2540 ml 1090 ml Other 350 ml Laboratory Tests 09/20/18 12:30: Arterial Blood pH 7.432, Arterial Blood Partial Pressure CO2 41.1, Arterial Blood Partial Pressure O2 88.8, Arterial Blood HCO3 26.8H, Arterial Blood Oxygen Saturation 96.7, Arterial Blood Base Excess 2.3H, Chris Test Positive 09/21/18 05:00: White Blood Count 10.2, Red Blood Count 3.19L, Hemoglobin 9.3L, Hematocrit 30.1L , Mean Corpuscular Volume 94, Mean Corpuscular Hemoglobin 29.1, Mean Corpuscular Hemoglobin Concent 30.8L, Red Cell Distribution Width 15.9H, Platelet Count 292, Mean Platelet Volume 6.2L, Neutrophils (%) (Auto) 79.2H, Lymphocytes (%) (Auto) 9.2L, Monocytes (%) (Auto) 9.2, Eosinophils (%) (Auto) 1.0, Basophils (%) (Auto) 1.5, Sodium Level 141, Potassium Level 3.4L, Chloride Level 104, Carbon Dioxide Level 33H, Anion Gap 4L, Blood Urea Nitrogen 12, Creatinine 1.0, Estimat Glomerular Filtration Rate > 60, Glucose Level 120H, Calcium Level 8.9, Magnesium Level 1.5L, Total Bilirubin 0.4, Aspartate Amino Transf (AST/SGOT) 18, Alanine Aminotransferase (ALT/SGPT) 12, Alkaline Phosphatase 93, Pro-B-Type Natriuretic Peptide 4734H, Total Protein 5.4L, Albumin 1.5L, Globulin 3.9, Albumin/Globulin Ratio 0.4L Height (Feet): 5 Height (Inches): 5.00 Weight (Pounds): 221 Objective WDWN elderly AA woman NCAT supple CTA RRR Abd soft ND, NT (++) edema Haley Mao MD September 21, 2018 08:34
[2018-09-21] MEDS: Lisinopril 20mg tab NG SCH ×2 (10:32→17:47)
[2018-09-21] MEDS: Pantoprazole Inj IVP SCH ×2 (10:33→20:55)
[2018-09-21] MEDS: Metoprolol Tartrate 50mg tab NG SCH ×2 (10:33→20:55)
[2018-09-21] MEDS: Spironolactone 25mg tab NG SCH (10:33)
--- NOTE | 2018-09-21 11:33 | Diagnostic Imaging Report ---
Indication: Dyspnea Comparison: 09/19/2018 A single view chest radiograph was obtained. Findings: There is evidence of a left pleural effusion and interstitial edema. There is a probable right pleural effusion as well. Heart is enlarged. PICC line and bilateral chest tubes are again noted. IMPRESSION: No change from the prior exam
--- NOTE | 2018-09-21 14:27 | Infectious Diseases Prog Note ---
Assessment/Plan Assessment/Plan ASSESSMENT AND PLAN: 1. sepsis, shock, sirs, pna, chf, respiratory failure, leukocytosis, fevers - - zosyn and vancomycin - day # 5 abx - monitor labs and chest x-ray - icu care, bp support, respiratory support - clinically improved, fevers resolved, leukocytosis resolved, extubated - d/w RN 2. The patient has metastatic breast cancer. The patient has been on chemotherapy. 3. Malignant effusions bilaterally with PleurX catheters. 4. Respiratory failure, currently on vent. Continue treatment per Pulmonary Medicine. 5. Diabetes mellitus. 6. Hypertension. 7. Blood sugar and blood pressure treatment for diabetes and hypertension per Primary. 8. Anemia. 9. Port-A-Cath. 10. Continue treatment per primary consultants. 11. No known drug allergies. 12. Social history negative. 13. Family history noncontributory. 14. MAR is noted. 15. Case discussed with RN. 16. ICU care. 17. Skin care protocol. 18. Notes and records were noted. Orders were entered. Subjective Constitutional: Reports: fatigue, other - less sob, no vent, extubated ; Denies: fever HEENT: Denies: congestion Respiratory: Denies: shortness of breath Cardiovascular: Denies: chest pain Gastrointestinal/Abdominal: Denies: nausea, vomiting, diarrhea Genitourinary: Reports: other - + rebolledo Neurologic: Denies: headache Psychiatric: Denies: depression Skin: Denies: rash Hematologic: Denies: bleeding Musculoskeletal: Denies: pain Allergies: Coded Allergies: No Known Allergies (Unverified , 09/15/18) Objective Vital Signs Last 24 Hour Vital Signs Date Time Temp Pulse Resp B/P (MAP) Pulse Ox O2 Delivery O2 Flow Rate FiO2 09/21/18 12:00 85 09/21/18 12:00 98.5 82 29 149/60 (89) 100 09/21/18 12:00 Venturi Mask 09/21/18 11:00 91 28 145/75 (98) 99 09/21/18 10:33 126 159/64 09/21/18 10:32 159/64 09/21/18 10:00 107 28 159/64 (95) 94 09/21/18 09:00 101 23 141/67 (91) 99 09/21/18 08:00 97.6 102 26 147/68 (94) 97 09/21/18 08:00 Venturi Mask 09/21/18 08:00 97 09/21/18 07:00 97 22 147/68 (94) 98 09/21/18 06:40 100 Venturi Mask 8.0 30 09/21/18 06:40 Venturi Mask 8.0 30 09/21/18 06:00 96 24 143/61 (88) 98 09/21/18 05:00 90 23 150/67 (94) 98 09/21/18 04:00 96 09/21/18 04:00 98.4 96 26 133/64 (87) 100 09/21/18 04:00 Non-Rebreather Non-Rebreather 09/21/18 03:00 119 28 139/83 (101) 98 09/21/18 02:00 95 25 137/64 (88) 100 09/21/18 01:00 107 24 153/63 (93) 98 09/21/18 00:00 Non-Rebreather Non-Rebreather 09/21/18 00:00 98.8 110 27 158/69 (98) 98 09/21/18 00:00 110 09/20/18 23:37 Venturi Mask 10.0 35 09/20/18 23:36 100 Venturi Mask 10.0 35 09/20/18 23:00 103 27 146/72 (96) 99 09/20/18 22:00 96 20 145/83 (103) 100 09/20/18 21:00 92 27 135/57 (83) 100 09/20/18 20:33 96 139/74 09/20/18 20:00 Non-Rebreather Non-Rebreather 09/20/18 20:00 98.7 96 22 139/74 (95) 100 09/20/18 20:00 96 09/20/18 19:00 81 19 130/62 (84) 100 09/20/18 18:25 127/66 09/20/18 18:00 80 19 122/69 (86) 100 09/20/18 17:00 85 19 127/66 (86) 100 09/20/18 16:00 85 09/20/18 16:00 98.0 82 17 130/80 (97) 100 09/20/18 16:00 Non-Rebreather Non-Rebreather 09/20/18 15:00 86 19 125/67 (86) 100 Height (Feet): 5 Height (Inches): 5.00 Weight (Pounds): 221 General Appearance: no acute distress HEENT: normocephalic, atraumatic, anicteric, mucous membranes moist Respiratory/Chest: decreased breath sounds, crackles/rales, rhonchi - bilaterally Cardiovascular: normal rate, regular rhythm, no gallop/murmur, no JVD Abdomen: normal bowel sounds, soft, non tender, no organomegaly, non distended Genitourinary: other Extremities: no cyanosis Skin: no rash Neurologic/Psychiatric: data analyst II-XII grossly normal, alert, oriented x 3, responsive Lymphatic: no neck adenopathy Musculoskeletal: no effusion Objective 09/17/18 - chest x-ray - COMPARISON: Chest x-rays dated 09/16/18 FINDINGS: Lungs: No significant change in diffuse patchy interstitial and alveolar opacities in bilateral lungs. Pleural space: Persistent moderate left and mild right pleural effusions. Heart: Unchanged mild cardiomegaly. Mediastinum: Unremarkable. Bones/joints: Unremarkable. Tubes, lines and devices: Stable positioning of the endotracheal tube. NG tube extends below the diaphragm and its tip is not visualized. Telemetry leads overlie the thorax. IMPRESSION: No significant interval change from the prior chest x-ray. 09/19/18 - chest x-ray - A single view chest radiograph was obtained. Findings: Tubes and lines are stable and satisfactory. A moderate left pleural effusion and small right pleural effusion suspected. Interstitial edema and vascular prominence noted. IMPRESSION: Interstitial edema/CHF. Bilateral pleural effusions worse on the left. No change 09/21/18 - Procedure: XRAY Chest 1v Indication: Dyspnea Comparison: 09/19/2018 A single view chest radiograph was obtained. Findings: There is evidence of a left pleural effusion and interstitial edema. There is a probable right pleural effusion as well. Heart is enlarged. PICC line and bilateral chest tubes are again noted. IMPRESSION: No change from the prior exam Microbiology Date/Time Source Procedure Growth Status 09/16/18 18:28 Blood Blood Culture - Preliminary NO GROWTH AFTER 4 DAYS Resulted 09/19/18 12:30 Pleural Fluid Gram Stain - Final Resulted 09/19/18 12:30 Pleural Fluid Body Fluid Culture - Preliminary NO GROWTH AFTER 24 HOURS Resulted 09/16/18 02:00 Sputum Induced Gram Stain - Final Complete 09/16/18 02:00 Sputum Induced Sputum Culture - Final NORMAL UPPER RESPIRATORY SANDRA PRESENT Complete 09/16/18 12:49 Indwelling Cath Urine Culture - Final NO GROWTH AFTER 48 HOURS Complete 09/15/18 17:40 Rectum VRE Culture - Final NO VANCOMYCIN RESISTANT ENTEROCOCCUS ... Complete 09/15/18 17:40 Rectum - Final NO CARBAPENEM-RESISTANT ENTEROBACTERI... Complete Microbiology Date/Time Source Procedure Growth Status 09/19/18 12:30 Pleural Fluid Gram Stain - Final Resulted 09/19/18 12:30 Pleural Fluid Body Fluid Culture - Preliminary NO GROWTH AFTER 24 HOURS Resulted Laboratory Tests Test 09/21/18 05:00 White Blood Count 10.2 K/UL (4.8-10.8) Red Blood Count 3.19 M/UL (4.20-5.40) L Hemoglobin 9.3 G/DL (12.0-16.0) L Hematocrit 30.1 % (37.0-47.0) L Mean Corpuscular Volume 94 FL (80-99) Mean Corpuscular Hemoglobin 29.1 PG (27.0-31.0) Mean Corpuscular Hemoglobin Concent 30.8 G/DL (32.0-36.0) L Red Cell Distribution Width 15.9 % (11.6-14.8) H Platelet Count 292 K/UL (150-450) Mean Platelet Volume 6.2 FL (6.5-10.1) L Neutrophils (%) (Auto) 79.2 % (45.0-75.0) H Lymphocytes (%) (Auto) 9.2 % (20.0-45.0) L Monocytes (%) (Auto) 9.2 % (1.0-10.0) Eosinophils (%) (Auto) 1.0 % (0.0-3.0) Basophils (%) (Auto) 1.5 % (0.0-2.0) Sodium Level 141 MMOL/L (136-145) Potassium Level 3.4 MMOL/L (3.5-5.1) L Chloride Level 104 MMOL/L (98-107) Carbon Dioxide Level 33 MMOL/L (21-32) H Anion Gap 4 mmol/L (5-15) L Blood Urea Nitrogen 12 mg/dL (7-18) Creatinine 1.0 MG/DL (0.55-1.30) Estimat Glomerular Filtration Rate > 60 mL/min (>60) Glucose Level 120 MG/DL (74-106) H Calcium Level 8.9 MG/DL (8.5-10.1) Magnesium Level 1.5 MG/DL (1.8-2.4) L Total Bilirubin 0.4 MG/DL (0.2-1.0) Aspartate Amino Transf (AST/SGOT) 18 U/L (15-37) Alanine Aminotransferase (ALT/SGPT) 12 U/L (12-78) Alkaline Phosphatase 93 U/L (46-116) Pro-B-Type Natriuretic Peptide 4734 pg/mL (0-125) H Total Protein 5.4 G/DL (6.4-8.2) L Albumin 1.5 G/DL (3.4-5.0) L Globulin 3.9 g/dL Albumin/Globulin Ratio 0.4 (1.0-2.7) L Current Medications Medications (Trade) Dose Ordered Sig/Ruddy Route PRN Reason Start Time Stop Time Status Last Admin Dose Admin Acetaminophen (Tylenol) 500 mg Q6H PRN ORAL Mild Pain/Temp > 100.5 09/15/18 23:15 10/15/18 23:14 09/17/18 23:59 Chlorhexidine Gluconate (Tawanna-Hex 2%) 1 applic DAILY@1999 TOPIC 09/16/18 20:00 10/16/18 19:59 09/20/18 19:38 Dextrose (Dextrose 50%) 25 ml Q30M PRN IV Hypoglycemia 09/17/18 09:30 10/17/18 09:29 Dextrose (Dextrose 50%) 50 ml Q30M PRN IV Hypoglycemia 09/17/18 09:30 10/17/18 09:29 Enoxaparin Sodium (Lovenox) 30 mg Q24H SUBQ 09/19/18 16:00 10/19/18 15:59 09/20/18 16:00 Enoxaparin Sodium (Lovenox) 120 mg Q24H SUBQ 09/19/18 16:00 10/19/18 15:59 09/20/18 16:00 Furosemide (Lasix) 40 mg DAILY IV 09/20/18 09:00 10/20/18 08:59 09/21/18 10:33 Hydralazine HCl (Apresoline) 10 mg Q6H PRN NG SBP above 160 09/18/18 12:15 10/18/18 12:14 Insulin Aspart (NovoLOG) EVERY 6 HOURS SUBQ 09/17/18 12:00 10/17/18 11:29 09/21/18 06:00 Lisinopril (Prinivil) 20 mg BID NG 09/18/18 12:15 10/18/18 12:14 09/21/18 10:32 Lorazepam (Ativan 2mg/ml 1ml) 2 mg Q4H PRN IV For Anxiety 09/15/18 22:30 09/22/18 22:29 09/19/18 23:04 Metoprolol Tartrate (Lopressor) 50 mg Q12HR NG 09/18/18 21:00 10/18/18 20:59 09/21/18 10:33 Pantoprazole (Protonix) 40 mg EVERY 12 HOURS IVP 09/19/18 22:45 10/19/18 22:44 09/21/18 10:33 Piperacillin Sod/ Tazobactam Sod 3.375 gm/Sodium Chloride 110 ml @ 27.5 mls/hr Q8H IVPB 09/16/18 02:00 09/23/18 01:59 09/21/18 10:32 Potassium Chloride (K-Dur) 20 meq BID NG 09/19/18 18:00 10/19/18 17:59 09/21/18 10:33 Spironolactone (Aldactone) 25 mg DAILY NG 09/20/18 09:00 10/20/18 08:59 09/21/18 10:33 Vancomycin HCl (Vanco rx to dose) 1 ea DAILY PRN MISC Per rx protocol 09/15/18 22:30 10/15/18 22:29 Vancomycin HCl 750 mg/Dextrose 275 ml @ 183.333 mls/hr Q12H IVPB 09/19/18 16:00 09/24/18 15:59 09/21/18 04:11 Yahaira Varner MD September 21, 2018 14:27
--- NOTE | 2018-09-21 15:10 | General Progress Note ---
Assessment/Plan Assessment/Plan: Assessment and Recs # DVT of the left brachial vein which was discussed with the RN, reviewed again on 09/21 "partially occlusive acute thrombus in the right distal and proximal brachial vein" --> start on lovenox at this time, also is on coumadin inr goal 2-3 (another option is a noac) --> outpatient will need lifelong anticoagulation given persistent malignancy, in this case lovenox would be best but likely coumadin is most practical --> can use NOAC as op as well as per onco # Metastatic breast cancer, does have stage iv disease, lung involvement and now on a vent, has received chemotherapy one week on and one week off (XELODA) --> given multiple comorbdities and fluid buildup in the lungs, would caution against aggressive chemotherapy given poor performance status --> xeloda as per outpatient management per onco outside --> currently imaging reviewed # Anemia of chronic disease due to underlying chronic medical issues, multifactorial --> Anemia workup shows evidence of acd --> No evidence of hemolysis is noted, peripheral smear has been reviewed. --> Hgb goal >7. Transfuse prn. --> Epogen or iron at this time is not particularly indicated --> Medications have been reviewed --> evaluate with Gi team prn --> transfuse if hgb is < 7 (will trend CBC daily) --> low threshold for gi evaluation in case has occult + # Sepsis, shock, sirs, pna, chf, respiratory failure, leukocytosis, fevers --> on abx as per id team --> appreciate recs, review imaging as needed # Malignant effusions bilaterally with PleurX catheters. --> per pulm care # Respiratory failure, off vent --> rx as per pulm # Diabetes mellitus. # Hypertension. # Port-A-Cath. The timing of this note does not necessarily reflect the time of the patient was seen. Greatly appreciate consultation! Subjective Constitutional: Denies: no symptoms, chills, diaphoresis, fever, malaise, weakness, other HEENT: Denies: no symptoms, eye pain, blurred vision, tearing, double vision, ear pain, ear discharge, nose pain, nose congestion, throat pain, throat swelling, mouth pain, mouth swelling, other Cardiovascular: Denies: no symptoms, chest pain, edema, irregular heart rate, lightheadedness, palpitations, syncope, other Respiratory: Denies: no symptoms, cough, orthopnea, shortness of breath, SOB with excertion, SOB at rest, sputum, stridor, wheezing, other Gastrointestinal/Abdominal: Denies: no symptoms, abdomen distended, abdominal pain, black stools, tarry stools, blood in stool, constipated, diarrhea, difficulty swallowing, nausea, poor appetite, poor fluid intake, rectal bleeding , vomiting, other Genitourinary: Denies: no symptoms, burning, discharge, frequency, flank pain, hematuria, incontinence, pain, urgency, other Neurologic/Psychiatric: Denies: no symptoms, anxiety, depressed, emotional problems, headache, numbness, paresthesia, pre-existing deficit, seizure, tingling, tremors, weakness, other Hematologic/Lymphatic: Denies: no symptoms, anemia, easy bleeding, easy bruising, other Allergies: Coded Allergies: No Known Allergies (Unverified , 09/15/18) Subjective 09/20: no events, no fevers or chills, with pleural effusion is noted, seen by pulm, on lovenox 09/21: off extubation, no fevers noted, no chills Objective Last 24 Hour Vital Signs Date Time Temp Pulse Resp B/P (MAP) Pulse Ox O2 Delivery O2 Flow Rate FiO2 09/21/18 12:00 85 09/21/18 12:00 98.5 82 29 149/60 (89) 100 09/21/18 12:00 Venturi Mask 09/21/18 11:00 91 28 145/75 (98) 99 09/21/18 10:33 126 159/64 09/21/18 10:32 159/64 09/21/18 10:00 107 28 159/64 (95) 94 09/21/18 09:00 101 23 141/67 (91) 99 09/21/18 08:00 97.6 102 26 147/68 (94) 97 09/21/18 08:00 Venturi Mask 09/21/18 08:00 97 09/21/18 07:00 97 22 147/68 (94) 98 09/21/18 06:40 100 Venturi Mask 8.0 30 09/21/18 06:40 Venturi Mask 8.0 30 09/21/18 06:00 96 24 143/61 (88) 98 09/21/18 05:00 90 23 150/67 (94) 98 09/21/18 04:00 96 09/21/18 04:00 98.4 96 26 133/64 (87) 100 09/21/18 04:00 Non-Rebreather Non-Rebreather 09/21/18 03:00 119 28 139/83 (101) 98 09/21/18 02:00 95 25 137/64 (88) 100 09/21/18 01:00 107 24 153/63 (93) 98 09/21/18 00:00 Non-Rebreather Non-Rebreather 09/21/18 00:00 98.8 110 27 158/69 (98) 98 09/21/18 00:00 110 09/20/18 23:37 Venturi Mask 10.0 35 09/20/18 23:36 100 Venturi Mask 10.0 35 09/20/18 23:00 103 27 146/72 (96) 99 09/20/18 22:00 96 20 145/83 (103) 100 09/20/18 21:00 92 27 135/57 (83) 100 09/20/18 20:33 96 139/74 09/20/18 20:00 Non-Rebreather Non-Rebreather 09/20/18 20:00 98.7 96 22 139/74 (95) 100 09/20/18 20:00 96 09/20/18 19:00 81 19 130/62 (84) 100 09/20/18 18:25 127/66 09/20/18 18:00 80 19 122/69 (86) 100 09/20/18 17:00 85 19 127/66 (86) 100 09/20/18 16:00 85 09/20/18 16:00 98.0 82 17 130/80 (97) 100 09/20/18 16:00 Non-Rebreather Non-Rebreather Intake and Output 09/20/18 09/21/18 18:59 06:59 Intake Total 805 ml 110 ml Output Total 2770 ml 1230 ml Balance -1965 ml -1120 ml Intake Oral 0 ml Free Water 420 ml IV Total 110 ml Tube Feeding 385 ml Output Urine Total 2420 ml 1230 ml Other 350 ml Laboratory Tests 09/21/18 05:00: White Blood Count 10.2, Red Blood Count 3.19L, Hemoglobin 9.3L, Hematocrit 30.1L , Mean Corpuscular Volume 94, Mean Corpuscular Hemoglobin 29.1, Mean Corpuscular Hemoglobin Concent 30.8L, Red Cell Distribution Width 15.9H, Platelet Count 292, Mean Platelet Volume 6.2L, Neutrophils (%) (Auto) 79.2H, Lymphocytes (%) (Auto) 9.2L, Monocytes (%) (Auto) 9.2, Eosinophils (%) (Auto) 1.0, Basophils (%) (Auto) 1.5, Sodium Level 141, Potassium Level 3.4L, Chloride Level 104, Carbon Dioxide Level 33H, Anion Gap 4L, Blood Urea Nitrogen 12, Creatinine 1.0, Estimat Glomerular Filtration Rate > 60, Glucose Level 120H, Calcium Level 8.9, Magnesium Level 1.5L, Total Bilirubin 0.4, Aspartate Amino Transf (AST/SGOT) 18, Alanine Aminotransferase (ALT/SGPT) 12, Alkaline Phosphatase 93, Pro-B-Type Natriuretic Peptide 4734H, Total Protein 5.4L, Albumin 1.5L, Globulin 3.9, Albumin/Globulin Ratio 0.4L Height (Feet): 5 Height (Inches): 5.00 Weight (Pounds): 221 Objective Sp02 EP Interpretation: reviewed, abnormal General Appearance: severe distress, lethargic, Chronically Ill Head: atraumatic Eyes: bilateral eye PERRL ENT: moist mucus membranes Neck: full range of motion, supple Respiratory: respiratory distress, decreased breath sounds NOW off vent Cardiovascular: regular rate, rhythm, edema - Left upper extremity, bilateral lower extremity Gastrointestinal: normal inspection, soft, no hernia Genitourinary: deferred Musculoskeletal: swelling - Left upper extremity and right arm Neurologic: responsive, other - Lethargic but awake Psychiatric: anxious Skin: normal inspection Dario Grayson MD September 21, 2018 15:10
[2018-09-21] MEDS: Enoxaparin 120 mg inj SUBQ SCH (16:23)
[2018-09-21] MEDS: Enoxaparin 30mg Inj SUBQ SCH (16:25)
--- NOTE | 2018-09-21 16:29 | Pulmonology Progress Note ---
Assessment/Plan Assessment/Plan Acute respiratory failure, extubated 09/20/18 Septic shock, off pressors Metastatic breast cancer Bilateral malignant pleural effusion Diabetes Anemia The R pleural catheter is drained daily US shows the L side has no fluid; may be organized effusion or atelectasis/ infiltrate Antibiotics will be continued extubated puree diet [facility] 2-3 d Subjective ROS Limited/Unobtainable: Yes Allergies: Coded Allergies: No Known Allergies (Unverified , 09/15/18) Objective Last 24 Hour Vital Signs Date Time Temp Pulse Resp B/P (MAP) Pulse Ox O2 Delivery O2 Flow Rate FiO2 09/21/18 15:00 88 26 155/67 (96) 99 09/21/18 14:00 87 24 155/75 (101) 99 09/21/18 13:00 88 24 153/89 (110) 99 09/21/18 12:00 85 09/21/18 12:00 98.5 82 29 149/60 (89) 100 09/21/18 12:00 Venturi Mask 09/21/18 11:00 91 28 145/75 (98) 99 09/21/18 10:33 126 159/64 09/21/18 10:32 159/64 09/21/18 10:00 107 28 159/64 (95) 94 09/21/18 09:00 101 23 141/67 (91) 99 09/21/18 08:00 97.6 102 26 147/68 (94) 97 09/21/18 08:00 Venturi Mask 09/21/18 08:00 97 09/21/18 07:00 97 22 147/68 (94) 98 09/21/18 06:40 100 Venturi Mask 8.0 30 09/21/18 06:40 Venturi Mask 8.0 30 09/21/18 06:00 96 24 143/61 (88) 98 09/21/18 05:00 90 23 150/67 (94) 98 09/21/18 04:00 96 09/21/18 04:00 98.4 96 26 133/64 (87) 100 09/21/18 04:00 Non-Rebreather Non-Rebreather 09/21/18 03:00 119 28 139/83 (101) 98 09/21/18 02:00 95 25 137/64 (88) 100 09/21/18 01:00 107 24 153/63 (93) 98 09/21/18 00:00 Non-Rebreather Non-Rebreather 09/21/18 00:00 98.8 110 27 158/69 (98) 98 09/21/18 00:00 110 09/20/18 23:37 Venturi Mask 10.0 35 09/20/18 23:36 100 Venturi Mask 10.0 35 09/20/18 23:00 103 27 146/72 (96) 99 09/20/18 22:00 96 20 145/83 (103) 100 09/20/18 21:00 92 27 135/57 (83) 100 09/20/18 20:33 96 139/74 09/20/18 20:00 Non-Rebreather Non-Rebreather 09/20/18 20:00 98.7 96 22 139/74 (95) 100 09/20/18 20:00 96 09/20/18 19:00 81 19 130/62 (84) 100 09/20/18 18:25 127/66 09/20/18 18:00 80 19 122/69 (86) 100 09/20/18 17:00 85 19 127/66 (86) 100 Intake and Output 09/20/18 09/21/18 18:59 06:59 Intake Total 805 ml 110 ml Output Total 2770 ml 1230 ml Balance -1965 ml -1120 ml Intake Oral 0 ml Free Water 420 ml IV Total 110 ml Tube Feeding 385 ml Output Urine Total 2420 ml 1230 ml Other 350 ml Objective bilateral pleural catheters General Appearance: WD/WN, no acute distress HEENT: atraumatic Respiratory/Chest: decreased breath sounds Cardiovascular: normal rate Microbiology Date/Time Source Procedure Growth Status 09/19/18 12:30 Pleural Fluid Gram Stain - Final Resulted 09/19/18 12:30 Pleural Fluid Body Fluid Culture - Preliminary NO GROWTH AFTER 24 HOURS Resulted Laboratory Tests 09/21/18 05:00: White Blood Count 10.2, Red Blood Count 3.19L, Hemoglobin 9.3L, Hematocrit 30.1L , Mean Corpuscular Volume 94, Mean Corpuscular Hemoglobin 29.1, Mean Corpuscular Hemoglobin Concent 30.8L, Red Cell Distribution Width 15.9H, Platelet Count 292, Mean Platelet Volume 6.2L, Neutrophils (%) (Auto) 79.2H, Lymphocytes (%) (Auto) 9.2L, Monocytes (%) (Auto) 9.2, Eosinophils (%) (Auto) 1.0, Basophils (%) (Auto) 1.5, Sodium Level 141, Potassium Level 3.4L, Chloride Level 104, Carbon Dioxide Level 33H, Anion Gap 4L, Blood Urea Nitrogen 12, Creatinine 1.0, Estimat Glomerular Filtration Rate > 60, Glucose Level 120H, Calcium Level 8.9, Magnesium Level 1.5L, Total Bilirubin 0.4, Aspartate Amino Transf (AST/SGOT) 18, Alanine Aminotransferase (ALT/SGPT) 12, Alkaline Phosphatase 93, Pro-B-Type Natriuretic Peptide 4734H, Total Protein 5.4L, Albumin 1.5L, Globulin 3.9, Albumin/Globulin Ratio 0.4L Current Medications Medications (Trade) Dose Ordered Sig/Ruddy Route PRN Reason Start Time Stop Time Status Last Admin Dose Admin Acetaminophen (Tylenol) 500 mg Q6H PRN ORAL Mild Pain/Temp > 100.5 09/15/18 23:15 10/15/18 23:14 09/17/18 23:59 Chlorhexidine Gluconate (Tawanna-Hex 2%) 1 applic DAILY@1999 TOPIC 09/16/18 20:00 10/16/18 19:59 09/20/18 19:38 Dextrose (Dextrose 50%) 25 ml Q30M PRN IV Hypoglycemia 09/17/18 09:30 10/17/18 09:29 Dextrose (Dextrose 50%) 50 ml Q30M PRN IV Hypoglycemia 09/17/18 09:30 10/17/18 09:29 Enoxaparin Sodium (Lovenox) 30 mg Q24H SUBQ 09/19/18 16:00 10/19/18 15:59 09/21/18 16:25 Enoxaparin Sodium (Lovenox) 120 mg Q24H SUBQ 09/19/18 16:00 10/19/18 15:59 09/21/18 16:23 Furosemide (Lasix) 40 mg DAILY IV 09/20/18 09:00 10/20/18 08:59 09/21/18 10:33 Hydralazine HCl (Apresoline) 10 mg Q6H PRN NG SBP above 160 09/18/18 12:15 10/18/18 12:14 Insulin Aspart (NovoLOG) EVERY 6 HOURS SUBQ 09/17/18 12:00 10/17/18 11:29 09/21/18 06:00 Lisinopril (Prinivil) 20 mg BID NG 09/18/18 12:15 10/18/18 12:14 09/21/18 10:32 Lorazepam (Ativan 2mg/ml 1ml) 2 mg Q4H PRN IV For Anxiety 09/15/18 22:30 09/22/18 22:29 09/19/18 23:04 Metoprolol Tartrate (Lopressor) 50 mg Q12HR NG 09/18/18 21:00 10/18/18 20:59 09/21/18 10:33 Pantoprazole (Protonix) 40 mg EVERY 12 HOURS IVP 09/19/18 22:45 10/19/18 22:44 09/21/18 10:33 Piperacillin Sod/ Tazobactam Sod 3.375 gm/Sodium Chloride 110 ml @ 27.5 mls/hr Q8H IVPB 09/21/18 18:00 09/28/18 17:59 Potassium Chloride (K-Dur) 20 meq BID NG 09/19/18 18:00 10/19/18 17:59 09/21/18 10:33 Spironolactone (Aldactone) 25 mg DAILY NG 09/20/18 09:00 10/20/18 08:59 09/21/18 10:33 Vancomycin HCl (Vanco rx to dose) 1 ea DAILY PRN MISC Per rx protocol 09/15/18 22:30 10/15/18 22:29 Vancomycin HCl 750 mg/Dextrose 275 ml @ 183.333 mls/hr Q12H IVPB 09/19/18 16:00 09/24/18 15:59 09/21/18 16:22 Ernesto Diaz MD September 21, 2018 16:29
[2018-09-21] MEDS ORDERED: Piperacillin/Tazobactam 3.375 GM in NS 110 ML IVPB SCH (18:00)
[2018-09-21] MEDS: Dyna-Hex 2% Top Sol 2oz TOPIC SCH (20:55)
[2018-09-22] VITALS: BP 136/78
[2018-09-22] MEDS ORDERED: Acetaminophen 500mg (ES) tab ORAL PRN (02:00)
[2018-09-22] MEDS: Piperacillin/Tazobactam 3.375 GM in NS 110 ML IVPB SCH ×2 (02:23→10:51)
[2018-09-22] MEDS ORDERED: LORazepam Inj 2mg/ml 1ml IV PRN (02:30)
[2018-09-22 04:00] VITALS: BP 155/70
[2018-09-22] MEDS: Vancomycin 750 MG in D5W 275 ML IVPB SCH ×2 (04:31→16:35)
[2018-09-22 05:08] LABS: BASOPHILS % (AUTO) 1.1 % (0.0-2.0); EOSINOPHILS % (AUTO) 2.3 % (0.0-3.0); HEMATOCRIT 29.8 % (37.0-47.0); HEMOGLOBIN 9.2 G/DL (12.0-16.0); MEAN CORPUSCULAR VOLUME 94 FL (80-99); MONOCYTES % (AUTO) 11.2 % (1.0-10.0); NEUTROPHILS % (AUTO) 75.4 % (45.0-75.0); PLATELET COUNT 322 K/UL (150-450); RED BLOOD COUNT 3.17 M/UL (4.20-5.40); RED CELL DISTRIBUTION WIDTH 16.7 % (11.6-14.8); WHITE BLOOD COUNT 11.2 K/UL (4.8-10.8)
[2018-09-22 05:29] LABS: ALANINE AMINOTRANSFERASE 12 U/L (12-78); ALBUMIN 1.6 G/DL (3.4-5.0); ALBUMIN/GLOBULIN RATIO 0.4 (1.0-2.7); ALKALINE PHOSPHATASE 87 U/L (46-116); ANION GAP 3 mmol/L (5-15); ASPARTATE AMINO TRANSFERASE 20 U/L (15-37); BILIRUBIN,TOTAL 0.3 MG/DL (0.2-1.0); BLOOD UREA NITROGEN 13 mg/dL (7-18); CALCIUM 8.9 MG/DL (8.5-10.1); CARBON DIOXIDE 35 MMOL/L (21-32); CHLORIDE 102 MMOL/L (98-107); CREATININE 1.1 MG/DL (0.55-1.30); POTASSIUM 3.5 MMOL/L (3.5-5.1); SODIUM 140 MMOL/L (136-145)
[2018-09-22] MEDS ORDERED: NovoLOG Insulin Flexpen SUBQ SCH (06:00)
[2018-09-22] MEDS ORDERED: HydrALAZINE 10mg Tab NG PRN (06:15)
[2018-09-22 08:00] VITALS: BP 145/76
[2018-09-22] MEDS ORDERED: Pantoprazole Inj IVP SCH (09:00)
[2018-09-22] MEDS ORDERED: Lisinopril 20mg tab NG SCH (09:00)
[2018-09-22] MEDS ORDERED: Metoprolol Tartrate 50mg tab NG SCH (09:00)
[2018-09-22] MEDS ORDERED: Spironolactone 25mg tab NG SCH (09:00)
--- NOTE | 2018-09-22 10:13 | General Progress Note ---
Assessment/Plan Assessment/Plan: Assessment/Plan: Assessment - OB (+) stools - metastatic BRCA with malignant pleural effusions - Resp failure --> off vent - Dysphagia / OGT --> out - edema - DM - Poor prognosis Recommendations - supportive care - monitor CBC - PPI - OK for Lovenox - not a good candidate for endoscopy, given overall poor health - check swallow evaluation>>> on puree diet -add Marinol 5 mg po BID Subjective ROS Limited/Unobtainable: Yes Allergies: Coded Allergies: No Known Allergies (Unverified , 09/15/18) Subjective poor po intake Objective Last 24 Hour Vital Signs Date Time Temp Pulse Resp B/P (MAP) Pulse Ox O2 Delivery O2 Flow Rate FiO2 09/22/18 08:39 93 145/76 09/22/18 08:39 145/76 09/22/18 08:37 93 145/76 09/22/18 08:00 98.0 93 28 145/76 (99) 97 09/22/18 08:00 Nasal Cannula 2.0 09/22/18 07:55 98 09/22/18 04:00 98.1 93 155/70 (98) 90 09/22/18 04:00 Nasal Cannula 2.0 09/22/18 03:34 89 09/22/18 00:36 86 09/22/18 00:00 98.4 65 136/78 (97) 96 09/22/18 00:00 Nasal Cannula 2.0 09/21/18 23:00 97 27 127/68 (87) 95 09/21/18 22:00 78 20 128/86 (100) 97 09/21/18 21:00 97 27 128/63 (84) 97 09/21/18 20:55 97 130/65 09/21/18 20:00 98.2 100 20 130/65 (86) 97 09/21/18 20:00 Nasal Cannula 2.0 09/21/18 20:00 103 09/21/18 19:20 100 Nasal Cannula 3.0 32 09/21/18 19:20 Nasal Cannula 3.0 32 09/21/18 19:00 97 134/65 (88) 09/21/18 18:55 Nasal Cannula 2.0 09/21/18 18:00 101 150/74 (99) 09/21/18 17:47 133/72 09/21/18 17:00 100 133/72 (92) 09/21/18 16:00 93 09/21/18 16:00 Venturi Mask 09/21/18 16:00 98.2 92 25 138/82 (100) 99 09/21/18 15:00 88 26 155/67 (96) 99 09/21/18 14:00 87 24 155/75 (101) 99 09/21/18 13:00 88 24 153/89 (110) 99 09/21/18 12:00 85 09/21/18 12:00 98.5 82 29 149/60 (89) 100 09/21/18 12:00 Venturi Mask 09/21/18 11:00 91 28 145/75 (98) 99 09/21/18 10:33 126 159/64 09/21/18 10:32 159/64 Intake and Output 09/21/18 09/22/18 19:00 07:00 Intake Total 582.500 ml 945.833 ml Output Total 2080 ml 1150 ml Balance -1497.500 ml -204.167 ml Intake Oral 150 ml 360 ml IV Total 412.500 ml 575.833 ml Other 20 ml 10 ml Output Urine Total 1880 ml 1050 ml Other 200 ml 100 ml # Bowel Movements 4 5 Laboratory Tests 09/22/18 03:10: White Blood Count 11.2H, Red Blood Count 3.17L, Hemoglobin 9.2L, Hematocrit 29.8L, Mean Corpuscular Volume 94, Mean Corpuscular Hemoglobin 29.0, Mean Corpuscular Hemoglobin Concent 30.8L, Red Cell Distribution Width 16.7H, Platelet Count 322, Mean Platelet Volume 7.0, Neutrophils (%) (Auto) 75.4H, Lymphocytes (%) (Auto) 10.0L, Monocytes (%) (Auto) 11.2H, Eosinophils (%) (Auto ) 2.3, Basophils (%) (Auto) 1.1, Sodium Level 140, Potassium Level 3.5, Chloride Level 102, Carbon Dioxide Level 35H, Anion Gap 3L, Blood Urea Nitrogen 13, Creatinine 1.1, Estimat Glomerular Filtration Rate 59.8, Glucose Level 101, Calcium Level 8.9, Total Bilirubin 0.3, Aspartate Amino Transf (AST/SGOT) 20, Alanine Aminotransferase (ALT/SGPT) 12, Alkaline Phosphatase 87, Total Protein 5.5L, Albumin 1.6L, Globulin 3.9, Albumin/Globulin Ratio 0.4L Height (Feet): 5 Height (Inches): 5.00 Weight (Pounds): 222 General Appearance: no apparent distress EENT: normal ENT inspection Neck: supple Cardiovascular: normal rate Respiratory/Chest: decreased breath sounds Abdomen: normal bowel sounds, non tender, soft Extremities: non-tender Kody Cobian MD September 22, 2018 10:13
[2018-09-22] MEDS: NovoLOG Insulin Flexpen SUBQ SCH ×2 (11:46→16:30)
[2018-09-22 12:00] VITALS: BP 155/63
--- NOTE | 2018-09-22 12:30 | Progress Note ---
DATE: 09/21/2018 CARDIOLOGY PROGRESS NOTE SUBJECTIVE: The patient was extubated yesterday. No respiratory distress. She remains off pressors. Blood pressure parameters are actually increasing now. Monitored rhythm sinus. Sinus arrhythmia with PACs. PHYSICAL EXAMINATION: VITAL SIGNS: Blood pressure 155/75, pulse 87, respirations 24, afebrile. LUNGS: Diminished breath sounds. CARDIAC: Regular rhythm and rate. Normal S1, S2. ABDOMEN: Soft. EXTREMITIES: Trace edema. LABORATORY AND DIAGNOSTIC DATA: White count 10 and hemoglobin 9.3. Potassium 3.4, magnesium 1.5, BUN 12, creatinine 1. Pro-natriuretic peptide has increased to 4700. Chest x-ray reveals interstitial edema and left pleural effusion. IMPRESSION: Remains tenuous, but slowly improving. PLAN: PleurX catheter drainage. Additional diuresis and titration of antihypertensives. Potassium and magnesium replacement. Antibiotics. Respiratory hygiene. Giovany Rocha M.D. DR: DONIS JOB#: [id number] CC:
[2018-09-22] MEDS ORDERED: K-TAB ER20 MEQ NG (14:40)
[2018-09-22] MEDS ORDERED: DRONABINOL2.5 MG ORAL (14:40)
[2018-09-22] MEDS ORDERED: SPIRONOLACTONE25 MG NG (14:40)
[2018-09-22] MEDS ORDERED: PRINIVIL20 MG NG (14:40)
[2018-09-22] MEDS ORDERED: METOPROLOL TART50 MG NG (14:40)
[2018-09-22] MEDS ORDERED: NORVASC2.5 MG NG (14:40)
[2018-09-22] MEDS ORDERED: PANTOPRAZOLE SO40 MG ORAL (14:40)
--- NOTE | 2018-09-22 14:43 | Pulmonology Progress Note ---
Assessment/Plan Assessment/Plan Acute respiratory failure, extubated 09/20/18 Septic shock, off pressors Metastatic breast cancer Bilateral malignant pleural effusion Diabetes Anemia some blood in stool dc ACs risk>benefit with UE DVT dc snf on 5 d more kassy Subjective Constitutional: Reports: anorexia Respiratory: Reports: shortness of breath Allergies: Coded Allergies: No Known Allergies (Unverified , 09/15/18) Objective Last 24 Hour Vital Signs Date Time Temp Pulse Resp B/P (MAP) Pulse Ox O2 Delivery O2 Flow Rate FiO2 09/22/18 12:00 Nasal Cannula 2.0 09/22/18 12:00 98.8 83 24 155/63 (93) 94 09/22/18 11:54 82 09/22/18 08:39 93 145/76 09/22/18 08:39 145/76 09/22/18 08:37 93 145/76 09/22/18 08:00 98.0 93 28 145/76 (99) 97 09/22/18 08:00 Nasal Cannula 2.0 09/22/18 07:55 98 09/22/18 04:00 98.1 93 155/70 (98) 90 09/22/18 04:00 Nasal Cannula 2.0 09/22/18 03:34 89 09/22/18 00:36 86 09/22/18 00:00 98.4 65 136/78 (97) 96 09/22/18 00:00 Nasal Cannula 2.0 09/21/18 23:00 97 27 127/68 (87) 95 09/21/18 22:00 78 20 128/86 (100) 97 09/21/18 21:00 97 27 128/63 (84) 97 09/21/18 20:55 97 130/65 09/21/18 20:00 98.2 100 20 130/65 (86) 97 09/21/18 20:00 Nasal Cannula 2.0 09/21/18 20:00 103 09/21/18 19:20 100 Nasal Cannula 3.0 32 09/21/18 19:20 Nasal Cannula 3.0 32 09/21/18 19:00 97 134/65 (88) 09/21/18 18:55 Nasal Cannula 2.0 09/21/18 18:00 101 150/74 (99) 09/21/18 17:47 133/72 09/21/18 17:00 100 133/72 (92) 09/21/18 16:00 93 09/21/18 16:00 Venturi Mask 09/21/18 16:00 98.2 92 25 138/82 (100) 99 09/21/18 15:00 88 26 155/67 (96) 99 Intake and Output 09/21/18 09/22/18 19:00 07:00 Intake Total 582.500 ml 945.833 ml Output Total 2080 ml 1150 ml Balance -1497.500 ml -204.167 ml Intake Oral 150 ml 360 ml IV Total 412.500 ml 575.833 ml Other 20 ml 10 ml Output Urine Total 1880 ml 1050 ml Other 200 ml 100 ml # Bowel Movements 4 5 Objective bilateral pleural catheters General Appearance: no acute distress HEENT: atraumatic Respiratory/Chest: decreased breath sounds Laboratory Tests 09/22/18 03:10: White Blood Count 11.2H, Red Blood Count 3.17L, Hemoglobin 9.2L, Hematocrit 29.8L, Mean Corpuscular Volume 94, Mean Corpuscular Hemoglobin 29.0, Mean Corpuscular Hemoglobin Concent 30.8L, Red Cell Distribution Width 16.7H, Platelet Count 322, Mean Platelet Volume 7.0, Neutrophils (%) (Auto) 75.4H, Lymphocytes (%) (Auto) 10.0L, Monocytes (%) (Auto) 11.2H, Eosinophils (%) (Auto ) 2.3, Basophils (%) (Auto) 1.1, Sodium Level 140, Potassium Level 3.5, Chloride Level 102, Carbon Dioxide Level 35H, Anion Gap 3L, Blood Urea Nitrogen 13, Creatinine 1.1, Estimat Glomerular Filtration Rate 59.8, Glucose Level 101, Calcium Level 8.9, Total Bilirubin 0.3, Aspartate Amino Transf (AST/SGOT) 20, Alanine Aminotransferase (ALT/SGPT) 12, Alkaline Phosphatase 87, Total Protein 5.5L, Albumin 1.6L, Globulin 3.9, Albumin/Globulin Ratio 0.4L Current Medications Medications (Trade) Dose Ordered Sig/Ruddy Route PRN Reason Start Time Stop Time Status Last Admin Dose Admin Acetaminophen (Tylenol) 500 mg Q6H PRN ORAL Mild Pain/Temp > 100.5 09/22/18 02:00 10/15/18 01:59 09/22/18 02:25 Amlodipine Besylate (Norvasc) 2.5 mg DAILY NG 09/22/18 09:00 10/22/18 08:59 09/22/18 08:37 Chlorhexidine Gluconate (Tawanna-Hex 2%) 1 applic DAILY@2000 TOPIC 09/22/18 20:00 10/16/18 19:59 Dextrose (Dextrose 50%) 25 ml Q30M PRN IV Hypoglycemia 09/22/18 01:00 10/17/18 09:29 Dextrose (Dextrose 50%) 50 ml Q30M PRN IV Hypoglycemia 09/22/18 01:00 10/17/18 09:29 Dronabinol (Marinol) 5 mg BID ORAL 09/22/18 18:00 10/22/18 17:59 Furosemide (Lasix) 40 mg DAILY IV 09/22/18 09:00 10/20/18 08:59 09/22/18 08:38 Hydralazine HCl (Apresoline) 10 mg Q6H PRN NG SBP above 160 09/22/18 06:15 10/18/18 12:14 Insulin Aspart (NovoLOG) AC+HS SUBQ 09/22/18 11:30 10/17/18 11:29 09/22/18 11:46 Lisinopril (Prinivil) 20 mg BID NG 09/22/18 09:00 10/18/18 12:14 09/22/18 08:39 Lorazepam (Ativan 2mg/ml 1ml) 2 mg Q4H PRN IV For Anxiety 09/22/18 02:30 09/22/18 22:29 Metoprolol Tartrate (Lopressor) 50 mg Q12HR NG 09/22/18 09:00 10/18/18 20:59 09/22/18 08:39 Pantoprazole (Protonix) 40 mg EVERY 12 HOURS IVP 09/22/18 09:00 10/19/18 22:44 09/22/18 08:38 Piperacillin Sod/ Tazobactam Sod 3.375 gm/Sodium Chloride 110 ml @ 27.5 mls/hr Q8H IVPB 09/22/18 02:00 09/28/18 17:59 09/22/18 10:51 Potassium Chloride (K-Dur) 20 meq BID NG 09/22/18 09:00 10/19/18 17:59 09/22/18 08:39 Spironolactone (Aldactone) 25 mg DAILY NG 09/22/18 09:00 10/20/18 08:59 09/22/18 08:39 Vancomycin HCl (Vanco rx to dose) 1 ea DAILY PRN MISC Per rx protocol 09/22/18 09:00 10/15/18 22:29 Vancomycin HCl 750 mg/Dextrose 275 ml @ 183.333 mls/hr Q12H IVPB 09/22/18 04:00 09/24/18 15:59 09/22/18 04:31 Ernesto Diaz MD September 22, 2018 14:43
--- NOTE | 2018-09-22 15:53 | General Progress Note ---
Assessment/Plan Assessment/Plan: Assessment and Recs # DVT of the left brachial vein which was discussed with the RN, reviewed again on 09/21 "partially occlusive acute thrombus in the right distal and proximal brachial vein" --> given upper ext, risk of bleeding hold off at this time anticoag --> dw pulm, hold off on anticoag risk>benefit --> reconsider in near future if condition stabilized # Metastatic breast cancer, does have stage iv disease, lung involvement and now on a vent, has received chemotherapy one week on and one week off (XELODA) --> given multiple comorbdities and fluid buildup in the lungs, would caution against aggressive chemotherapy given poor performance status --> xeloda as per outpatient management per onco outside --> currently imaging reviewed # Anemia of chronic disease due to underlying chronic medical issues, multifactorial --> Anemia workup shows evidence of acd --> No evidence of hemolysis is noted, peripheral smear has been reviewed. --> Hgb goal >7. Transfuse prn. --> Epogen or iron at this time is not particularly indicated --> Medications have been reviewed --> evaluate with Gi team prn --> transfuse if hgb is < 7 (will trend CBC daily) --> low threshold for gi evaluation in case has occult + # Sepsis, shock, sirs, pna, chf, respiratory failure, leukocytosis, fevers --> on abx as per id team --> appreciate recs, review imaging as needed # Malignant effusions bilaterally with PleurX catheters. --> per pulm care # Respiratory failure, off vent --> rx as per pulm # Diabetes mellitus. # Hypertension. # Port-A-Cath. The timing of this note does not necessarily reflect the time of the patient was seen. Greatly appreciate consultation! Subjective Constitutional: Denies: no symptoms, chills, diaphoresis, fever, malaise, weakness, other HEENT: Denies: no symptoms, eye pain, blurred vision, tearing, double vision, ear pain, ear discharge, nose pain, nose congestion, throat pain, throat swelling, mouth pain, mouth swelling, other Cardiovascular: Denies: no symptoms, chest pain, edema, irregular heart rate, lightheadedness, palpitations, syncope, other Respiratory: Denies: no symptoms, cough, orthopnea, shortness of breath, SOB with excertion, SOB at rest, sputum, stridor, wheezing, other Gastrointestinal/Abdominal: Denies: no symptoms, abdomen distended, abdominal pain, black stools, tarry stools, blood in stool, constipated, diarrhea, difficulty swallowing, nausea, poor appetite, poor fluid intake, rectal bleeding , vomiting, other Genitourinary: Denies: no symptoms, burning, discharge, frequency, flank pain, hematuria, incontinence, pain, urgency, other Endocrine: Denies: no symptoms, excessive sweating, flushing, intolerance to cold, intolerance to heat, increased hunger, increased thirst, increased urine, unexplained weight gain, unexplained weight loss, other Hematologic/Lymphatic: Denies: no symptoms, anemia, easy bleeding, easy bruising, other Allergies: Coded Allergies: No Known Allergies (Unverified , 09/15/18) Subjective 09/20: no events, no fevers or chills, with pleural effusion is noted, seen by pulm, on lovenox 09/21: off extubation, no fevers noted, no chills 09/22: no chills, no fevers, holding off anticoag, seen by pulm, cards Objective Last 24 Hour Vital Signs Date Time Temp Pulse Resp B/P (MAP) Pulse Ox O2 Delivery O2 Flow Rate FiO2 09/22/18 12:00 Nasal Cannula 2.0 09/22/18 12:00 98.8 83 24 155/63 (93) 94 09/22/18 11:54 82 09/22/18 08:39 93 145/76 09/22/18 08:39 145/76 09/22/18 08:37 93 145/76 09/22/18 08:00 98.0 93 28 145/76 (99) 97 09/22/18 08:00 Nasal Cannula 2.0 09/22/18 07:55 98 09/22/18 04:00 98.1 93 155/70 (98) 90 09/22/18 04:00 Nasal Cannula 2.0 09/22/18 03:34 89 09/22/18 00:36 86 09/22/18 00:00 98.4 65 136/78 (97) 96 09/22/18 00:00 Nasal Cannula 2.0 09/21/18 23:00 97 27 127/68 (87) 95 09/21/18 22:00 78 20 128/86 (100) 97 09/21/18 21:00 97 27 128/63 (84) 97 09/21/18 20:55 97 130/65 09/21/18 20:00 98.2 100 20 130/65 (86) 97 09/21/18 20:00 Nasal Cannula 2.0 09/21/18 20:00 103 09/21/18 19:20 100 Nasal Cannula 3.0 32 09/21/18 19:20 Nasal Cannula 3.0 32 09/21/18 19:00 97 134/65 (88) 09/21/18 18:55 Nasal Cannula 2.0 09/21/18 18:00 101 150/74 (99) 09/21/18 17:47 133/72 09/21/18 17:00 100 133/72 (92) 09/21/18 16:00 93 09/21/18 16:00 Venturi Mask 09/21/18 16:00 98.2 92 25 138/82 (100) 99 Intake and Output 09/21/18 09/22/18 19:00 07:00 Intake Total 582.500 ml 945.833 ml Output Total 2080 ml 1150 ml Balance -1497.500 ml -204.167 ml Intake Oral 150 ml 360 ml IV Total 412.500 ml 575.833 ml Other 20 ml 10 ml Output Urine Total 1880 ml 1050 ml Other 200 ml 100 ml # Bowel Movements 4 5 Laboratory Tests 09/22/18 03:10: White Blood Count 11.2H, Red Blood Count 3.17L, Hemoglobin 9.2L, Hematocrit 29.8L, Mean Corpuscular Volume 94, Mean Corpuscular Hemoglobin 29.0, Mean Corpuscular Hemoglobin Concent 30.8L, Red Cell Distribution Width 16.7H, Platelet Count 322, Mean Platelet Volume 7.0, Neutrophils (%) (Auto) 75.4H, Lymphocytes (%) (Auto) 10.0L, Monocytes (%) (Auto) 11.2H, Eosinophils (%) (Auto ) 2.3, Basophils (%) (Auto) 1.1, Sodium Level 140, Potassium Level 3.5, Chloride Level 102, Carbon Dioxide Level 35H, Anion Gap 3L, Blood Urea Nitrogen 13, Creatinine 1.1, Estimat Glomerular Filtration Rate 59.8, Glucose Level 101, Calcium Level 8.9, Total Bilirubin 0.3, Aspartate Amino Transf (AST/SGOT) 20, Alanine Aminotransferase (ALT/SGPT) 12, Alkaline Phosphatase 87, Total Protein 5.5L, Albumin 1.6L, Globulin 3.9, Albumin/Globulin Ratio 0.4L Height (Feet): 5 Height (Inches): 5.00 Weight (Pounds): 222 Objective Sp02 EP Interpretation: reviewed, abnormal General Appearance: severe distress, lethargic, Chronically Ill Head: atraumatic Eyes: bilateral eye PERRL ENT: moist mucus membranes Neck: full range of motion, supple Respiratory: respiratory distress, decreased breath sounds NOW off vent Cardiovascular: regular rate, rhythm, edema - Left upper extremity, bilateral lower extremity Gastrointestinal: normal inspection, soft, no hernia Genitourinary: deferred Musculoskeletal: swelling - Left upper extremity and right arm Neurologic: responsive, other - Lethargic but awake Psychiatric: anxious Skin: normal inspection Dario Grayson MD September 22, 2018 15:53
[2018-09-22] MEDS ORDERED: Enoxaparin 120 mg inj SUBQ SCH (16:00)
[2018-09-22] MEDS ORDERED: Enoxaparin 30mg Inj SUBQ SCH (16:00)
[2018-09-22] MEDS ORDERED: NS 275ml ONE (17:32)
[2018-09-22] MEDS ORDERED: Tubing IV Secondary IV ONE (17:32)
[2018-09-22] MEDS ORDERED: Dronabinol 2.5mg Cap ORAL SCH (18:00)
[2018-09-22] MEDS ORDERED: Dyna-Hex 2% Top Sol 2oz TOPIC SCH (20:00)
--- NOTE | 2018-09-23 03:45 | Progress Note ---
DATE: 09/22/2018 CARDIOLOGY PROGRESS NOTE SUBJECTIVE: The patient remains off pressors for several days. She was extubated two days ago. She has no respiratory distress. She is off anticoagulation due to increased bleeding risk despite an upper extremity DVT, which is felt to have a lower risk for pulmonary embolic events. OBJECTIVE: VITAL SIGNS: Blood pressure 145/76, heart rate 93, respiratory rate 28, and afebrile. LUNGS: Good breath sounds. No wheezing. HEART: Regular rhythm and rate. Normal S1 and S2. ABDOMEN: Soft. EXTREMITIES: Trace edema. CATHETERS: PleurX catheter is in place. Port-A-Cath in the right arm. LABORATORY DATA: White count 11 and hemoglobin 9.2. Sodium 140, potassium 3.5, bicarb 35, BUN 13, and creatinine 1.1. Albumin 1.6. IMPRESSION: 1. Malignant pleural effusion. 2. Metastatic breast cancer. 3. Hypertensive heart disease. 4. Cardiomyopathy with acute on chronic diastolic congestive heart failure. 5. Severe protein-calorie malnutrition. 6. Status post acute respiratory failure with aspiration pneumonia. PLAN: 1. Respiratory hygiene. 2. Monitor electrolytes at [facility]. 3. Drainage of PleurX catheters on a regular basis. 4. Titrate antihypertensives based on clinical parameters. 5. No need for maintenance diuretic therapy at this time. Giovany Rocha M.D. DR: LUIS ALBERTO JOB#: [id number] CC:
--- NOTE | 2018-09-24 22:16 | Discharge Summary ---
Discharge Summary Discharge Summary _ DATE OF ADMISSION: 09/15/2018 DATE OF DISCHARGE: 2018 DISCHARGED BY: Dr. Diaz REASON FOR ADMISSION: 68 years old female, [facility], with past medical history of left breast cancer, status post mastectomy, bilateral pleural effusion with Pleurx, on oral chemotherapy, lymphedema, presented with shortness of breath. Per family, left Pleurx was not functioning properly. The right Pleurx was drained prior to transfer. Upon evaluation pulse oximetry was 80% on room air. Patient was tachycardic, tachypneic, and hypoxic. Patient required emergency oral intubation. Laboratory work-up revealed leukocytosis WBC 18.6, hemoglobin 11, hematocrit 34.9. Stable renal parameters and electrolytes. Stable LFT. Troponin negative, pro BNP 1063. Albumin 1.9. EKG revealed sinus tachycardia, no acute ischemic changes. Chest x-ray revealed patchy bilateral pulmonary opacities, edema versus pneumonia. Retrocardiac atelectasis/consolidation. Patient received fluid bolus. Blood pressure improved. Patient was subsequently admitted to ICU for further management. CONSULTANTS: medication nurse ID specialist GI specialist dr. Rucker maintenance apprentice/oncologist Dr. Grayson [facility] COURSE: Patient admitted to the ICU. Ventilator support and pulmonary toilet provided. Patient was followed up with chest x-ray and ABG. Ventilator settings titrated for optimal ventilatory function. Patient started on the IV fluids and empiric antibiotics. Hemodynamic status was closely monitor with goal to keep mean arterial blood pressure above 65. Patient was on pressors/Levophed for a short period of time. Patient was able to shortly be weaned of pressors. Hemodynamic status was closely monitored throughout patient's stay in the hospital. Initially venous duplex of the left upper extremity revealed no evidence of acute DVT. Venous duplex left lower extremity revealed no evidence of acute DVT. Chest ultrasound revealed only trace pleural fluid. Absence of drainage was possibly due to lack of pleural fluid rather than catheter malfunctioning. Left pleural catheter was drained daily. Right pleural catheter may or may not be working properly , but it was not needed at this time , since ultrasound of the chest revealed no significant pleural fluid. Patient was able to be extubated on 09/20. Supplemental oxygen provided as needed to keep pulse oximetry above 92%. Pulmonary toilet provided as needed. ID specialist closely followed. Sputum culture was negative. Urine culture and blood culture were negative. Pleural fluid culture was negative. Antibiotics provided as per ID specialist recommendation . patient clinically improved :fevers and leukocytosis resolved, patient extubated . Patient will require 5 additional days of antibiotic at the facility with vancomycin and Zosyn. [employer]or [employer]inder followed. Patient with known hypertensive heart disease and cardiomyopathy. Echocardiogram revealed ejection fraction 45% with mild global left ventricular hypokinesis. Mild left ventricular hypertrophy. Right ventricular systolic pressure of 55 consistent with a moderate pulmonary hypertension. Moderate tricuspid regurgitation. When hemodynamic status stabilized, patient started on cautious diuresis with close monitoring of volumes and cardiorenal parameters. Patient restarted slowly on beta-jeane and NOE inhibitor. Anti-failure medication regimen was consistent with beta-jeane, NOE inhibitor , Lasix and Aldactone. Blood pressure was managed with multiple antihypertensive medications, including NOE inhibitor, beta-jeane, calcium channel jeane and hydralazine. Antihypertensive medication and cardiovascular regimen were further titrated based on clinical parameters. Per cardiology, upon discharge no need for maintenance diuretic therapy with Lasix at this time. Continue with Aldactone. Renal parameters and electrolytes were closely monitored and corrected as needed , specifically potassium and magnesium. Nephrotoxins were avoided. GI specialist followed. While intubated , patient received nutrition via orogastric tube. Strict aspiration precaution maintained. After extubation orogastric tube was discontinued. Patient undergone bedside swallow evaluation, which revealed dysphagia. Diet provided as per speech therapist recommendation with strict aspiration/ reflux precaution and one-to-one supervision. Protein supplements implemented in plan of care as per registered dietitian recommendation. Appetite stimulant / Marinol added to medication regimen. Stool for occult blood was positive. CEA 36.4. However per GI specialist, patient was not a good candidate for endoscopy, given overall poor health. Hemoglobin and hematocrit were closely monitored with goal to keep hemoglobin above 7. Hemoglobin and hematocrit remained at the baseline. Prior to discharge hemoglobin 9.2 and hematocrit 29.8. Anemia work-up revealed evidence of anemia of chronic disease and folate deficiency. Patient started on folic acid supplement.. No evidence of hemolysis. Epogen or iron at this time were not particularly indicated as per maintenance apprentice. Blood sugar was managed with sliding scale of insulin. Repeated venous duplex of bilateral upper extremity revealed partially occlusive acute thrombus in the right distal axillary and proximal brachial vein. Recanalized thrombus in the left subclavian vein noted. Given risk of bleeding versus benefit and after further discussion with attending, maintenance apprentice recommended hold anticoagulation at this time, since the risks outweigh the benefits. May reconsider in the near future if condition stabilized. Patient clinically stabilized and was ready for transfer to jail facility for continuation of care. Overall prognosis poor. 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 DISCHARGE INSTRUCTIONS: [facility] was [facility] to [facility] jail facility. Follow up with medical doctor at the facility. I have been assigned to dictate discharge summary for this account. I was not involved in the patient's management. Janae Lewis NP September 24, 2018 22:16
== END 2018-09-22 17:33 | DRG 870 ==
LOC: EDBD 16:31 → EMR 17:40 → ICU 17:45 → EDBEDREQ 18:34 → 2W 09-21 23:44
PROC: 5A1955Z Respiratory Ventilation, Greater than 96 Consecutive Hours (ICD-10-PCS; principal; 2018-09-15)
PROC: 0BH17EZ Insertion of Endotracheal Airway into Trachea, Via Natural or Artificial Opening (ICD-10-PCS; principal; 2018-09-15)
DX: A41.9 Sepsis, unspecified organism (principal); J18.9 Pneumonia, unspecified organism; J96.00 Acute respiratory failure, unspecified whether with hypoxia or hypercapnia; R65.21 Severe sepsis with septic shock; J96.01 Acute respiratory failure with hypoxia; I50.33 Acute on chronic diastolic (congestive) heart failure; E43 Unspecified severe protein-calorie malnutrition; J91.0 Malignant pleural effusion; I82.621 Acute embolism and thrombosis of deep veins of right upper extremity; E87.6 Hypokalemia; E83.42 Hypomagnesemia; C50.919 Malignant neoplasm of unspecified site of unspecified female breast; Y95 Nosocomial condition; E11.9 Type 2 diabetes mellitus without complications; I11.0 Hypertensive heart disease with heart failure; Z68.37 Body mass index [BMI] 37.0-37.9, adult; I89.0 Lymphedema, not elsewhere classified; D64.9 Anemia, unspecified
CPT/HCPCS: 31500; 36415; 36600; 71045; 74018; 76604; 80048; 80053; 80076; 80150; 80202; 82270; 82378; 82550; 82553; 82607; 82728; 82746; 82784; 82803; 82962; 83540; 83550; 83605; 83615; 83690; 83735; 83880; 84443; 84484; 85007; 85025; 85044; 85060; 85384; 85610; 85730; 87040; 87070; 87081; 87086; 87205; 93005; 93306; 93970; 94002; 94003; 94664; 94760; 96361; 96365; 96368; 96375; 99291; J1815; J8499